=== PATIENT | female | born 1955 | race Caucasian/White ===

== ENCOUNTER 2019-01-08 09:47 | Inpatient (IN) ==
[2019-01-08] MEDS ORDERED: NS 1,000 ML IV ONE ×3 (10:44→14:31)
[2019-01-08] MEDS ORDERED: ZOFRAN IV ONE ×2 (10:44→13:27)
[2019-01-08] MEDS ORDERED: ATIVAN IV ONE (10:45)
--- NOTE | 2019-01-08 11:08 | EKG Report ---
Test Performed on : 01/08/2019 10:48:49 AM Test Reason : tachycardia Blood Pressure : / mmHG Vent. Rate : 168 BPM Atrial Rate : 168 BPM P-R Int : 000 ms QRS Dur : 082 ms QT Int : 302 ms P-R-T Axes : 000 012 091 degrees QTc Int : 504 ms Atrial fibrillation. with rapid ventricular response. ST elevation, consider inferior injury or acute infarct ACUTE [place] / STEMI Consider right ventricular involvement in acute inferior infarct Abnormal ECG When compared with ECG of 04-SEP-2015 07:32, Atrial fibrillation. has replaced Sinus rhythm. Unconfirmed Result
[2019-01-08 11:16] LABS: BASO# 0.07 X1000 (0.0-0.2); BASO% 0.3 % (0.0-0.8); EOS# 0.16 X1000 (0.0-0.7); EOS% 0.7 % (0.0-10.0); HEMATOCRIT 35.8 % (37.0-47.0); HEMOGLOBIN 11.4 g/dL (12.0-16.0); IMM GRAN# 0.09 X1000 (0.0-0.04); IMM GRAN% 0.4 % (0.0-0.5); LYMPH# 1.68 X1000 (1.2-3.4); LYMPH% 7.2 % (20.5-51.1); MCH 23.3 PG (27-31); MCHC 31.8 g/dL (33-37); MCV 73.1 FL (81-99); MONO# 0.82 X1000 (0.11-0.59); MONO% 3.5 % (1.7-9.3); NEUT# 20.52 X1000 (1.4-6.5); NEUT% 87.9 % (42.2-75.2); PLT 627 X1000 (130-400); RDW 17.3 % (11.5-14.5); WBC 23.34 X1000 (4.8-10.8)
[2019-01-08] MEDS ORDERED: STERILE WATER INJ. INJ ONE (11:29)
[2019-01-08] MEDS ORDERED: GEODON IM ONE (11:29)
[2019-01-08] MEDS ORDERED: VALIUM IV ONE (12:12)
--- NOTE | 2019-01-08 12:45 | Diag Imaging Result Doc PS360 ---
CHEST-1 VIEW - 01/08/2019 INDICATION: chest pain COMPARISON: None FINDINGS: The lungs are normally expanded and clear. Heart size and mediastinal contours are normal. No pneumothorax or pleural effusion. IMPRESSION: Negative exam. Electronically signed by Akhil Grossman 01/08/2019 12:43 PM
[2019-01-08] MEDS: ZOSYN 3.375 GM in NS 50 ML IV ONE ×2 (13:21→14:20)
[2019-01-08] MEDS ORDERED: PHENERGAN IM ONE (13:21)
[2019-01-08 14:10] LABS: ALLEN TEST YES; BE -10.9 mmoll (-3.0-3.0); BLOOD TYPE ARTERIAL; HCO3-(ACT) 16.4 mmoll (20.0-26.0); MODALITY CANNULA; PCO2(98.6) 22 mmHg (35-45); PO2(98.6) 119 mmHg (60-100); SAMPLE BLOOD; THB 10.2 g/dL (11.5-17.4); pH(98.6) 7.37 (7.35-7.45)
[2019-01-08 14:18] LABS: ESTIMATED GFR 27
[2019-01-08 14:19] LABS: AGAP 22; ALBUMIN 4.7 g/dL (3.5-5.0); ALKALINE PHOSPHATASE 173 U/L (32-104); BUN 55 mg/dL (8-22); CALCIUM 10.3 mg/dL (8.8-10.2); CHLORIDE 105 mmol/L (98-107); CK PROFILE 58 U/L (24-173); COSMO 300; CREATININE 1.9 mg/dL (0.5-0.9); GLUCOSE 170 mg/dL (70-104); GOT 22 U/L (10-30); GPT 23 U/L (10-36); LIPASE 21 U/L (13-60); POTASSIUM 4.1 mmol/L (3.5-5.1); SODIUM 141 mmol/L (136-145); TCO2 14 mmol/L (25-35); TOTAL BILIRUBIN 0.57 mg/dL (0.20-1.00); TOTAL PROTEIN 9.2 g/dL (6.3-8.3)
--- NOTE | 2019-01-08 14:21 | PROVIDER DOCUMENTATION ---
This chart was entered by Sangeeta Castillo Scribe, acting as scribe for Juan J Ko DO. HPI-Abdominal Pain/GI Problem - General Chief Complaint: Vomiting Stated Complaint: SEVERE VOMITING Time Seen by Provider: 01/08/19 10:12 Source: patient, family () Allergies/Adverse Reactions: Patient Allergies Allergy/AdvReac Type Severity Reaction Status Date / Time nalbuphine HCl * AdvReac Unknown Verified 07/25/15 17:15 [From Nubain] Home Medications: Home Medication List Medication Instructions Recorded Confirmed Last Taken Type Insulin Glargine,Hum.rec.anlog 32 unit SQ BID 07/25/15 09/04/15 09/03/15 18:00 History [Lantus Solostar] Lisinopril 20 mg PO DAILY 07/25/15 09/04/15 09/03/15 History Omeprazole [Prilosec] 20 mg PO DAILY 07/25/15 09/04/15 09/03/15 History Tizanidine HCl [Zanaflex] 4 mg PO 4XDAY 07/25/15 09/04/15 09/03/15 13:00 History Cephalexin [Keflex] 500 mg PO BID #14 cap 06/07/18 Unknown Rx - History of Present Illness-ABD Nature of Presenting Problems: 63 yowf presents to the ed with at bedside. pt sts pt has had TMTC of vomiting since last night and has been out of Zanaflex "for a few" and when pt goes in to withdrawal this is typical behavior. pt on exam is lying in a position and can speak if you ask a direct question but otherwise answers for pt. pt c/o n/v Abdominal Pain Onset Location: reports: generalized abdomen Pain Radiation: reports: no radiation Quality of Pain: reports: other (c/o nausea) Severity in ED: reports: moderate Onset/Duration: reports: last night Timing: reports: still present, getting worse Activities at Onset: reports: other (out of medication) Exposure to sick contacts?: No Modifying Factors: improves with: nothing. worse with: eating Associated Symptoms: reports: nausea, vomiting. denies: back/neck pain, chest pain, diaphoresis, fever/chills, headaches, shortness of breath Last BM: unsure Dark Stools Present?: reports: none noticed Rectal Bleeding: reports: none # of Diarrhea Episodes: 0 Rectal Pain: reports: none Emesis Description: reports: other (no description given) Bruising or Bleeding Gums?: No Similar Symptoms Previously?: Yes Recently seen or treated by another doctor?: No Review of Systems - Adult - REVIEW OF SYSTEMS - ADULT ROS:: ROS per family ( does most of answering questions) Constitutional: denies: chills, fever Eyes: reports: no symptoms reported Ears, Nose, Mouth & Throat: reports: no symptoms reported Cardiovascular: denies: chest pain, palpitations Respiratory: denies: shortness of breath, wheezing Gastrointestinal: reports: see HPI, nausea, poor appetite, vomiting. denies: abdominal pain (c/o nausea) Genitourinary: reports: no symptoms reported Musculoskeletal: denies: back pain, neck pain Integumentary: reports: no symptoms reported Neurological: denies: dizziness/vertigo, headache/migraines, seizure Psychiatric: reports: no symptoms reported Endocrine: reports: no symptoms reported Hematologic/Lymphatic: reports: no symptoms reported Allergic/Immunologic: reports: no symptoms reported All Other Systems: Reviewed and Negative Past History - Adult - PAST MEDICAL HISTORY-ADULT Review of Records: reports: Old Records Reviewed, Nursing Assessment Review, Medications Reviewed, Social history reviewed & non-contributory. Major Childhood Illnesses: reports: denies history Cardiovascular: reports: HTN Respiratory: reports: denies history Gastrointestinal: reports: cancer (colon), GERD Obstetrical/Gynecological: reports: denies history Genitourinary: reports: denies history Musculoskeletal: reports: chronic pain (sees pain clinic in [place]) Neurological: reports: denies history Psychiatric: reports: other (drug seeking behavior, drug dependence, Oxycodone/Zanaflex) Endocrine/Immune: reports: Diabetes Diabetes Type: Type 2 Other Conditions: reports: denies history - PRIOR SURGERIES/PROCEDURES Surgical/Procedure History: reports: appendectomy, cholecystectomy, hysterectomy , BTL, , bowel surgery, back/neck - PRIOR HOSPITALIZATIONS Prior Hospitalizations: reports: for other non-related - IMMUNIZATION STATUS Childhood Immunizations: See Nurse Assessment Flu Vaccine: See Nurse Assessment - FAMILY HISTORY Family History: reviewed, not pertinent - SOCIAL HISTORY Smoking: denies Substance Use: denies Living Situation: family Physical Exam-General - PHYSICAL EXAM-ADULT Initial Vital Signs Reviewed: Yes - CONSTITUTIONAL General Appearance: alert, moderate distress, anxious. negative: appears well (ill appearing) - EYES Eyes: PERRL/EOMI, pale conjunctivae - HEAD, EARS, NOSE, MOUTH & THROAT HENMT: dental decay. negative: moist mucous membranes (dry oral) - NECK Neck: full range of motion, normal inspection - RESPIRATORY Respiratory: chest non-tender, lungs clear, normal breath sounds - CARDIOVASCULAR Cardiovascular: normal peripheral pulses, regular rate, rhythm - GASTROINTESTINAL (ABDOMEN) Abdominal Exam: normal bowel sounds, soft, no organomegaly, no pulsatile mass, guarding. negative: distended, rigid, rebound - GENITOURINARY Female Genitalia/Pelvic Exam: deferred Rectal Exam: deferred Hemoccult Exam: deferred - LYMPHATIC Lymphatic: no adenopathy - MUSCULOSKELETAL Back Exam: normal inspection, other (pt is lying in a position on exam) Extremity: no pedal edema, no calf tenderness, normal capillary refill, pelvis stable - SKIN Integumentary: warm/dry, pallor - NEUROLOGIC Neurologic: grossly normal - PSYCHIATRIC Psych/Mental Status: normal thought process, oriented x 3, disheveled Progress - PLAN OF CARE/RESULTS Progress/Plan/Lab Results: Vital Signs - 8 hr 01/08/19 09:54 Temperature 97.7 F Pulse Rate 83 Respiratory Rate 20 O2 Sat by Pulse Oximetry 98 re-examined numerous time during ED course, very challenging presentation/situation patient non-cooperative with care initially, labs, blood cultures, lactate, fluids ordered due to tachycardia, vomiting broad spectrum antibiotics ordered initial labs hemolyzed i discussed with staff patient has iv access, nursing will get second line patient prolonged course in the ED, appropriate fluids, abx orders for sepsis called hospitalist with pending CT imaging in discussion, they would like CT results prior to admission in our discussion at point of conversation, 30ml/kg fluid bolus along with initial zosyn orders and vancomycin added when CT resulted, called back hospitalist in the interim, this patient needs additional iv access, has 2 small peripheral lines planned to insert CVL, I am notified we have picc team available at this facility, this would be a good option for this patient for additional access Result Diagrams: 01/08/19 10:46 01/08/19 13:48 - REASSESSMENT Reassessment #1 Time Reassessed: 10:55 (pt has noted sinus tachycardia and dr is aware) Status: unchanged (no new pain) Reassessment #2 Time Reassessed: 11:09 (pt HR did not improve with medication) Status: unchanged Reassessment Comment: at bedside Reassessment #3 Time Reassessed: 13:27 (pt still vomiting) Status: unchanged Reassessment Comment: at bedside - EKG 1 Time of EKG reading by physician:: 10:48 EKG Read and Signed by:: Juan J Ko EKG Interpretation (*Must complete 3 of following elements*): Abnormal Rate: 168 Rhythm: sinus tachycardia Strat[place]: normal QRS: normal [place] Interval: normal ST Wave: normal 2 Time of EKG reading by physician:: 10:52 EKG Read and Signed by:: Juan J Ko EKG Interpretation (*Must complete 3 of following elements*): Abnormal Rate: 169 Rhythm: sinus tachycardia with pac Strat[place]: normal QRS: normal [place] Interval: normal ST Wave: normal Prior EKG Comparison: changes noted 3 Time of EKG reading by physician:: 15:53 EKG Read and Signed by:: Juan J Ko EKG Interpretation (*Must complete 3 of following elements*): Abnormal Rate: 168 Rhythm: sinus tachycardia with pac Strat[place]: normal QRS: normal AK Interval: normal ST Wave: normal Comments: per dr ko - CT/MRI 1 CT Study: Head Impression: See EMR Report (EXAM: CT HEAD W/O CONTRAST 01/08/2019 HISTORY: altered mental status TECHNIQUE: This exam was performed using automated exposure control, adjustment of mA or kV according to patient size, and/or use of iterative reconstruction technique. COMMENT: There are no previous studies available for comparison. There is a lacune in the inferior left cerebellar hemisphere and there is apparent encephalomalacia in the upper portions of both hemispheres. There is also encephalomalacia in the occipital lobes bilaterally extending into the posterior parietal lobes. No evidence of mass effect or bleed is present. There is no evidence of mass effect. The paranasal sinuses are clear. The calvarium is intact. 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 Given the chronic findings, further evaluation with MRI may be desirable. Electronically signed by Eliu Toure 01/08/2019 2:58 PM 01/08/19 1458 Interpreting Physician: Eliu Toure MD Dictated Date/Time: 01/08/19 1455 cc: Juan J Ko DO; None,PCP) 2 CT Study: Abdomen, Pelvis Impression: See EMR Report (EXAM: CT ABDOMEN/PELVIS W/O CONTRAST 01/08/2019 HISTORY: abd pain, tachycardia TECHNIQUE: This exam was performed using automated exposure control, adjustment of mA or kV according to patient size, and/or use of iterative reconstruction technique. COMMENT: There are no previous studies available for comparison. There is an ill-defined opacity in the visualized portion of the left upper lobe seen on the first several images. This may represent bronchopneumonia. There are no abnormal fluid collections. There is a hiatal hernia. There is some mucosal thickening in the distal esophagus. There is a cyst in the left hepatic lobe measuring 2.4 cm in diameter. The liver is unremarkable considering the lack of contrast. The spleen is not enlarged. There is no evidence of nephrolithiasis. There is some slight fullness of the renal pelvis on the right. No evidence of ureterolithiasis is present. There is a Parekh catheter in the bladder. There is no evidence of bowel obstruction. There is no evidence of free pelvic fluid. There are some degenerative disc and facet changes in the lumbar spine. There is no evidence of acute bony abnormality. IMPRESSION: Atelectasis versus pneumonia left upper lobe. Possible distal esophagitis. Hepatic cyst. No evidence of ureterolithiasis or obstructive uropathy. Electronically signed by Eliu Toure 01/08/2019 3:13 PM 01/08/19 1513 Interpreting Physician: Eliu Toure MD Dictated Date/Time: 01/08/19 1508 cc: Juan J Ko DO; None,PCP) - CONSULTS/PCP/HOSPITALIST Notification #1 *Consult/PCP/Hospitalist*: hospitalist Time Discussed: 14:36 (spoke with breanne) Reason/Comments: sepsis Consult Disposition: other (phone consult and sts will accept the pt after CT are read and placed in chart) #2 Consult: hospitalist dr castro Time Discussed: 15:27 Reason/Comments: sepsis Consult Disposition: Admit Departure - Departure Date of Disposition Decision: 01/08/19 Time of Disposition Decision: 14:17 DIAGNOSIS: Tachycardia, Volume depletion, Hyperglycemia, Creatinine elevation Sepsis Qualifiers: Sepsis type: sepsis due to unspecified organism Sepsis acute organ dysfunction status: unspecified Qualified Code(s): A41.9 - Sepsis, unspecified organism Leukocytosis Qualifiers: Leukocytosis type: other Qualified Code(s): D72.828 - Other elevated white blood cell count Vomiting Qualifiers: Vomiting type: unspecified Vomiting Intractability: intractable Nausea presence: with nausea Qualified Code(s): R11.2 - Nausea with vomiting, unspecified Pneumonia Qualifiers: Pneumonia type: due to unspecified organism Laterality: unspecified laterality Lung location: unspecified part of lung Qualified Code(s): J18.9 - Pneumonia, unspecified organism Disposition: ADMITTED INPATIENT 09 Certified Medical Emergency: Emergent Condition: Fair Referrals and Follow-Ups: None,PCP [Primary Care Provider] - - Critical Care Note This patient required my direct & personal management of CC.: Yes Total Time (mins): 100 Critical Care Statement: This patient required my direct personal management to treat or rule out processes, the absence of which, could potentiallly result in sudden, clinically significant life or limb threatening deterioration. Attestation - Physician/ NAHUM Attestation Patient care was provided by Advanced Practice Provider:: No The physician spent face to face time with patient:: Yes Advanced Practice Provider documentation review:: Supervising physician onsite and consulted in the evaluation and care of this patient. The physician did have a face to face encounter with the patient. This chart was documented by the indicated scribe, (Sangeeta Castillo Scribe) and accurately reflects the services I performed and decisions made by me, Juan J Ko DO, as attested by the provider's signature.
[2019-01-08 14:24] LABS: ACETONE SERUM NEGATIVE (NEGATIVE)
[2019-01-08] MEDS ORDERED: VANCOMYCIN 1 GM/NS 1 GM/250 ML IVPB IV ONE (14:44)
--- NOTE | 2019-01-08 15:00 | Diag Imaging Result Doc PS360 ---
EXAM: CT HEAD W/O CONTRAST 01/08/2019 HISTORY: altered mental status TECHNIQUE: This exam was performed using automated exposure control, adjustment of mA or kV according to patient size, and/or use of iterative reconstruction technique. COMMENT: There are no previous studies available for comparison. There is a lacune in the inferior left cerebellar hemisphere and there is apparent encephalomalacia in the upper portions of both hemispheres. There is also encephalomalacia in the occipital lobes bilaterally extending into the posterior parietal lobes. No evidence of mass effect or bleed is present. There is no evidence of mass effect. The paranasal sinuses are clear. The calvarium is intact. 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 Given the chronic findings, further evaluation with MRI may be desirable. Electronically signed by Eliu Toure 01/08/2019 2:58 PM
[2019-01-08] MEDS ORDERED: NS 250 ML ONE (15:05)
--- NOTE | 2019-01-08 15:15 | Diag Imaging Result Doc PS360 ---
EXAM: CT ABDOMEN/PELVIS W/O CONTRAST 01/08/2019 HISTORY: abd pain, tachycardia TECHNIQUE: This exam was performed using automated exposure control, adjustment of mA or kV according to patient size, and/or use of iterative reconstruction technique. COMMENT: There are no previous studies available for comparison. There is an ill-defined opacity in the visualized portion of the left upper lobe seen on the first several images. This may represent bronchopneumonia. There are no abnormal fluid collections. There is a hiatal hernia. There is some mucosal thickening in the distal esophagus. There is a cyst in the left hepatic lobe measuring 2.4 cm in diameter. The liver is unremarkable considering the lack of contrast. The spleen is not enlarged. There is no evidence of nephrolithiasis. There is some slight fullness of the renal pelvis on the right. No evidence of ureterolithiasis is present. There is a Parekh catheter in the bladder. There is no evidence of bowel obstruction. There is no evidence of free pelvic fluid. There are some degenerative disc and facet changes in the lumbar spine. There is no evidence of acute bony abnormality. IMPRESSION: Atelectasis versus pneumonia left upper lobe. Possible distal esophagitis. Hepatic cyst. No evidence of ureterolithiasis or obstructive uropathy. Electronically signed by Eliu Toure 01/08/2019 3:13 PM
[2019-01-08 15:22] LABS: URINE SOURCE CATH
[2019-01-08 15:24] LABS: BILIRUBIN URINE NEGATIVE (NEGATIVE); BLOOD URINE NEGATIVE (NEGATIVE); COLOR YELLOW; GLUCOSE URINE NEGATIVE (NEGATIVE); KETONE URINE TRACE mg/dL (NEGATIVE); LEUKOCYTES URINE NEGATIVE (NEGATIVE); NITRITE URINE NEGATIVE (NEGATIVE); PROTEIN URINE TRACE mg/dL (NEGATIVE); SP GRAVITY URINE 1.019; TURBIDITY URINE HAZY (CLEAR); UR EPITHELIAL CELLS <10 /HPF (<10); URINE BACTERIA NEGATIVE /HPF; URINE RBC <10 /HPF (<10); URINE WBC <10 /HPF (<10); UROBILINOGEN URINE NORMAL (NORMAL)
[2019-01-08 15:32] LABS: PTT 24.1 Seconds (22.3-41.8)
[2019-01-08 15:35] LABS: INR 1.2; PROTIME 15.4 Seconds (11.0-16.0)
[2019-01-08 15:38] LABS: UR AMPHETAMINES QUAL NONE DETECTED (NONE DETECT); UR BARBITUATES QUAL NONE DETECTED (NONE DETECT); UR BENZODIAZEPIN QUAL NONE DETECTED (NONE DETECT); UR CANNABINOIDS QUAL NONE DETECTED (NONE DETECT); UR COCAINE QUAL NONE DETECTED (NONE DETECT); UR METHADONE QUAL NONE DETECTED (NONE DETECT); UR OPIATES QUAL NONE DETECTED (NONE DETECT); UR OXYCODONE QUAL NONE DETECTED (NONE DETECT); UR PCP QUAL NONE DETECTED (NONE DETECT)
[2019-01-08] MEDS ORDERED: CARDIZEM IV ONE ×2 (15:57→17:40)
[2019-01-08] MEDS ORDERED: ZANAFLEX PO ONE (16:06)
--- NOTE | 2019-01-08 16:07 | EKG Report ---
Test Performed on : 01/08/2019 3:49:45 PM Test Reason : tachycardia Blood Pressure : / mmHG Vent. Rate : 168 BPM Atrial Rate : 168 BPM P-R Int : 138 ms QRS Dur : 078 ms QT Int : 288 ms P-R-T Axes : 049 007 092 degrees QTc Int : 481 ms Sinus tachycardia. with premature atrial complexes. ST elevation, consider inferior injury or acute infarct ACUTE [place] / STEMI Consider right ventricular involvement in acute inferior infarct Abnormal ECG When compared with ECG of 08-JAN-2019 10:48, (Unconfirmed) Sinus rhythm. has replaced Atrial fibrillation. Unconfirmed Result
[2019-01-08] MEDS ORDERED: DUONEB (A & A) INH PRN (16:15)
[2019-01-08] MEDS ORDERED: NS 1,000 ML IV SCH (16:15)
[2019-01-08] MEDS ORDERED: ROCEPHIN 1 GM in NS 50 ML IV SCH (16:15)
[2019-01-08] MEDS ORDERED: ZOFRAN IV PRN (16:19)
[2019-01-08] MEDS ORDERED: SODIUM CHLORIDE 0.9% INJ PRN (16:20)
[2019-01-08] MEDS ORDERED: VANCOMYCIN IV PER PHARMACY MISC SCH (16:30)
--- NOTE | 2019-01-08 16:54 | HISTORY AND PHYSICAL ---
HISTORY OF PRESENT ILLNESS: This is a 63-year-old. states that she ran out of her Zanaflex. She takes a little over 4 of those a day and in times past when she is withdrawal from Zanaflex she gets very confused and agitated and that is what he noticed started happening yesterday evening. He brought to the emergency room this morning. She was complaining of nausea and very agitated and I think they gave her some Zofran and she required four-point restraint. He denies any fever or chills or complaints of chest pain or tachy palpitations. PAST MEDICAL HISTORY: 1. History of hypertension. 2. Gastroesophageal reflux. 3. Colon cancer in 2000 with colon resection. No sign of recurrence. PAST SURGICAL HISTORY: 1. Three C-sections. 2. Hysterectomy. 3. Three lumbar surgeries. 4. Cholecystectomy. 5. Colectomy secondary to colon cancer. ALLERGIES: Nubain. He gave a couple others. I think morphine is 1 of them. FAMILY HISTORY: He does not report any history of coronary or cardiac, renal, or pulmonary issues that he is aware of. SOCIAL HISTORY: Negative for tobacco. Negative for ethanol. REVIEW OF SYSTEMS: According to the , no weight gain or loss. No fever chills.HEENT: Unremarkable. He is not aware of any change in visual or hearing acuity. No recent fall or neck pain. No adenopathy. Respiratory: No increased work of breathing or dyspnea. Cardiovascular: No chest pain or tachy palpitation GI/: No gross hematuria or dysuria. Musculoskeletal/Neurologic: No focal complaints, just general confusion and agitation. LAB: ABG was 7.37, pCO2 is 22, PO2 is 119, O2 saturation is 96%; this was on 2 L nasal cannula. Sodium 141, potassium 4.1, chloride 105, bicarb 14, BUN 55, creatinine 1.9. I am not sure what her baseline creatinine is. Calcium is 10.3, AST 22, ALT was 23, alkaline phosphatase 173. CK was 59. Lactate level is 4.8. Note that the patient appears to have metabolic acidosis with respiratory compensation. Bicarb was 22. Chest x-ray in the emergency room, negative exam. Lungs are normally expanded and clear. However, CT scan of the abdomen and pelvis revealed atelectasis versus pneumonia in the left upper lobe, possible distal esophagitis, hepatic cyst. No evidence of ureteral lithiasis or obstructive uropathy. 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 ASSESSMENT AND PLAN: 1. Metabolic encephalopathy. Suspect it is from her muscle relaxant withdrawal, so we will put her back on her muscle relaxer. We are going to put her in the unit. She is requiring four- point restraint at this point. I guess what we can use to help will be Haldol. She can have 4 mg of Haldol IV q.6 hours p.r.n. We will give her some supplementary O2. We will check her T4, TSH, B12, folate, and we will make sure we get a urine drug screen. Actually, she has had a drug screen and it is negative for opiates, oxycodone, methadone, barbiturates, phencyclidine, amphetamines, benzodiazepines, urine cocaine, and cannabinoids. Acetone level was negative as well. 2. She has some encephalomalacia appreciated and we may need to define that better with an MRI. I cannot determine whether she has any new neurologic deficits. Her does not seem to think she has. 3. Questionable pneumonia, questionable aspiration. So we will cover right now with antibiotics. Plan on giving her Zosyn 3.375 g IV q.6 hours and we will give her 1 g of vancomycin, have it dosed per pharmacy right now. 4. We are going to need to watch her renal function. We will give her normal saline and run it at 85 mL an hour at the present time. I do not think she is having sepsis, but her lactate level was high. So, we will run normal saline at 85 mL an hour. She has no history of congestive heart failure, so she ought to be able to handle the volume okay. 5. Distant history of colon cancer, status post colectomy. 6. She has had some back surgeries in the past and has a lot of muscle spasm. 7. History of gastroesophageal reflux disease. 8. History of hypertension. REVIEW OF MEDICATIONS: She was taking some Keflex, will stop that. She is on Lantus 32 units subcutaneously b.i.d. I think we probably ought to half that dose to 18 units b.i.d. until we know that she is eating and awake and alert. We will give her the lisinopril 20 mg a day, Prilosec 20 mg daily, and we will put her back on her Zanaflex 4 mg q.6 hours. cc: Hiram Hammer MD
[2019-01-08] MEDS: PHENERGAN IV PRN ×2 (17:02→21:09)
[2019-01-08] MEDS: NS 1,000 ML IV SCH (18:00)
[2019-01-08] MEDS: CARDIZEM 125 MG in NS 100 ML IV SCH (18:07)
--- NOTE | 2019-01-08 18:14 | Diag Imaging Result Doc PS360 ---
EXAM: CHEST-PORTABLE 01/08/2019 HISTORY: NG PLACEMENT TECHNIQUE: AP upright at 1807 COMMENT: There is an NG tube with its tip in the stomach. The heart size is enlarged. There has been no significant change since 1239. IMPRESSION: NG tube in the stomach. Electronically signed by Eliu Toure 01/08/2019 6:12 PM
[2019-01-08] MEDS: HALDOL IV PRN (18:22)
[2019-01-08] MEDS ORDERED: MORPHINE IV ONE (20:23)
[2019-01-08] MEDS ORDERED: ZANAFLEX PO SCH (21:00)
[2019-01-08] MEDS: ATIVAN IV PRN (21:07)
[2019-01-08] MEDS: PROTONIX IV SCH (21:07)
[2019-01-08] MEDS: SODIUM CHLORIDE 0.9% INJ SCH (21:07)
[2019-01-08] MEDS: LANTUS INSULIN SUBQ SCH (21:09)
[2019-01-08] MEDS: HUMULIN R SUBQ SCH (21:10)
[2019-01-08] MEDS: ZANAFLEX PO SCH (21:26)
[2019-01-08] MEDS ORDERED: NS 500 ML IV ONE (23:00)
[2019-01-09] MEDS: ATIVAN IV PRN ×3 (00:12→21:15)
[2019-01-09] MEDS ORDERED: LOPRESSOR IV ONE (00:56)
[2019-01-09] MEDS: CARDIZEM 125 MG in NS 100 ML IV SCH ×2 (01:19→11:11)
[2019-01-09] MEDS: ZANAFLEX PO SCH ×4 (03:25→21:15)
[2019-01-09] MEDS: HALDOL IV PRN ×2 (06:19→17:28)
[2019-01-09] MEDS: NS 1,000 ML IV SCH ×2 (06:19→17:29)
--- NOTE | 2019-01-09 06:35 | Diag Imaging Result Doc PS360 ---
CHEST-PORTABLE - 01/09/2019 INDICATION: Pneumonia COMPARISON: 01/08/2019 FINDINGS: The left PICC line has been advanced and the tip is now at the cavoatrial junction. Nasogastric tube is in the stomach. No infiltrates in the lungs. Heart size is normal. IMPRESSION: No acute disease. Electronically signed by Akhil Grossman 01/09/2019 6:32 AM
[2019-01-09] MEDS: HUMULIN R SUBQ SCH ×4 (07:00→21:18)
--- NOTE | 2019-01-09 07:09 | EKG Report ---
Test Performed on : 01/09/2019 06:56:45 AM Test Reason : eval qtc Blood Pressure : / mmHG Vent. Rate : 120 BPM Atrial Rate : 120 BPM P-R Int : 154 ms QRS Dur : 080 ms QT Int : 330 ms P-R-T Axes : 047 012 187 degrees QTc Int : 466 ms Sinus tachycardia. with occasional premature ventricular complexes. Left ventricular hypertrophy with repolarization abnormality Abnormal ECG When compared with ECG of 08-JAN-2019 15:49, (Unconfirmed) premature ventricular complexes. are now present premature atrial complexes. are no longer present T wave inversion now evident in Inferior leads T wave inversion more evident in Lateral leads Confirmed by Danielle Mi MD ([id number]) on 01/10/2019 12:59:16 PM
[2019-01-09 07:10] LABS: HEMOGLOBIN A1C 7.4 % (4.8-6.0)
[2019-01-09 07:14] LABS: BASO# 0.05 X1000 (0.0-0.2); BASO% 0.3 % (0.0-0.8); HEMATOCRIT 29.9 % (37.0-47.0); HEMOGLOBIN 9.3 g/dL (12.0-16.0); IMM GRAN# 0.06 X1000 (0.0-0.04); IMM GRAN% 0.3 % (0.0-0.5); LYMPH# 1.71 X1000 (1.2-3.4); LYMPH% 9.6 % (20.5-51.1); MCH 23.1 PG (27-31); MCHC 31.1 g/dL (33-37); MCV 74.2 FL (81-99); MONO% 7.3 % (1.7-9.3); MPV 11.5 FL (7.4-10.4); NEUT# 14.69 X1000 (1.4-6.5); NEUT% 82.5 % (42.2-75.2); PLT 461 X1000 (130-400); RBC 4.03 XMIL (4.2-5.4); RDW 17.6 % (11.5-14.5); WBC 17.81 X1000 (4.8-10.8)
[2019-01-09 07:25] LABS: ALB/GLOB RATIO 1.1; ALBUMIN 3.9 g/dL (3.5-5.0); CALCIUM 9.1 mg/dL (8.8-10.2); CREATININE 1.3 mg/dL (0.5-0.9); POTASSIUM 3.5 mmol/L (3.5-5.1); TOTAL BILIRUBIN 0.62 mg/dL (0.20-1.00); TOTAL PROTEIN 7.4 g/dL (6.3-8.3)
[2019-01-09 07:43] LABS: FREE T4 1.56 ng/dL (0.93-1.70); TSH 1.23 uIUmL (0.27-4.20)
[2019-01-09] MEDS: LANTUS INSULIN SUBQ SCH ×2 (09:27→21:19)
[2019-01-09] MEDS: PROTONIX IV SCH ×2 (09:27→21:15)
--- NOTE | 2019-01-09 10:34 | PROGRESS NOTE ---
DATE: 01/09/2019 SUBJECTIVE: Ms. Juarez still has a good deal of confusion. She required a four-point restraint. She is oriented to person. She knows she is in the hospital, and she could not get the year or the month correct, but she was pretty close. She realized she was wrong when she was corrected. OBJECTIVE: Temperature 98.4 degrees, pulse 132, respirations 28 and blood pressure 155/96. Pupils are equal and round. Lungs are clear in all lung francois. Cardiovascular exam with regular rhythm and rate without murmur or S3. Abdomen is soft. Skin is warm and dry. LABORATORY: [place] [address] [place] [address]. Sodium 151, potassium 3.5, chloride 117, BUN 28, and creatinine 1.3. It has come down from 1.9 to 1.3. Lactate level down to 1.3. Urine drug screen was really negative. Her chest x-ray from this morning showed no acute disease. Left PICC line has been advanced. The tip is now at the cavoatrial junction. Nasogastric tube is in the stomach. No infiltrates in the lungs. CT of the head without contrast, extensive encephalomalacia of the posterior circulation, which may be due to previous infarcts. May need to consider an MRI. Abdominal and pelvic CT, atelectasis versus pneumonia left upper lobe, possible distal esophagitis, hepatic cyst. No evidence of ureteral lithiasis or obstructive uropathy. ASSESSMENT AND PLAN: 1. Metabolic encephalopathy. She had run out of her Zanaflex, and we have her back on that. She has some nausea as well. There is some hypernatremia. We are treating her for pneumonia. 2. Pneumonia with bacteremia suspected. Continue current antibiotics. 3. Sinus tachycardia I think it would be nice to get an MRI of her head at some point. I am going to ask neurology to evaluate. We will check thyroid, B12 and folate, which I think were done this morning. Thyroid is unremarkable. B12 of 317, folate was 22. She did have some acute kidney injury. Her creatinine was 1.9, and it has come down. Liver enzymes unremarkable. I will check an ammonia level as well though. cc: Hiram Hammer MD
--- NOTE | 2019-01-09 13:10 | CONSULTATION ---
DATE OF CONSULTATION: 01/09/2019 HISTORY OF PRESENT ILLNESS: Ms. Juarez is 63 years old and there is reported confusion. I have reviewed the admission history. is not present for firsthand report right now. She apparently abruptly stopped tizanidine and developed confusion. There may be a report that she has had a similar situation in the past. She told me that she had not made any medication changes except running out of tizanidine for about 1 day. Chart shows her tizanidine dose had been 4 mg q.i.d. chronically. Her urine drug screen was all negative. Her home medicine list does not include any other habituating products. I did find entry on the [facility] PDMP with a differently spelled 1st name, identical date, same last name, very similar address. This entry showed lorazepam prescriptions filled in the last few months, hydrocodone and oxycodone prescriptions filled earlier, clonazepam prescription about a year and a half ago. Ms. Juarez denies ethanol use and illicit drug use. Her imaging this admission includes noncontrast CT showing diffuse posterior encephalomalacia involving the occipital lobes and the cerebellar hemispheres bilaterally. This appears very old, not recent. She reports a head injury in an accident with limb injuries at an uncertain point in the past, possibly a few years ago, possibly only several months ago. Brain MRI is planned, but was not done earlier because of her restlessness. She reports no history of stroke, no more serious head injury, no head injury with neurologic deficit. She reports trouble with vision only since several months ago. PAST MEDICAL HISTORY: Past history is remarkable for hypertension, GERD, colon cancer managed in 2000, chronic back pain and history of lumbar surgery. LABORATORY DATA: Lab showed normal B12, normal thyroid, blood sugars 120s-190s, WBC initially 23,000 down to 17,000. Sodium initially 141 up to 151. BUN initially 55, down to 28. VITAL SIGNS: Vital sign record shows temperature 100.8 degrees about 20 hours ago, otherwise afebrile. Heart rate has ranged 110s to 130s. Recent systolic blood pressures have been 140s-170s. PHYSICAL EXAMINATION: On exam, Ms. Juarez is supine, awake, alert, mostly attentive. She answered questions appropriately but often incorrectly. She was incorrect with all answers regarding orientation in time. She did identify this as a hospital in [place]. She named the President correctly. She discussed recent news generally without specific details provided. She confabulated easily and consistently. Speech is minimally dysarthric but easily understood. Language function is intact on bedside testing. Head and neck are unremarkable. Visual field is full on the right and very poor on the left tested monocularly and binocularly. Extraocular movements are full. Pupils react to light. Facial motility is symmetric. Tongue is midline. Limb tone is symmetric. She performed rapid alternating movements very slowly and inconsistently with the hands, but symmetrically with the left and right. Plantar response is silent bilaterally. There was brisk withdrawal with minimal noxious stimulation of the limbs. She reports equal pinprick appreciation over the limbs, somewhat difficult to mat machine tender with certainty because of her fluctuating attention. Proprioception is good at the great toe MTP joint bilaterally. I did not test her gait. IMPRESSION: 1. Left hemianopia, confusion, possible delirium, confabulation. I do not see clinical evidence of increased intracranial pressure. 2. CT findings are noted. I do not know whether this is due to very remote or more recent incident, but it does not appear to be acute or subacute. She would have risk for seizure based on these CT findings, but history does not sound like seizure. 3. There is reported recent abrupt cessation of moderately high dose tizanidine which generally would be associated with elevated blood pressure, restlessness, agitation, but not usually confusion. I wonder if she might have a history of benzodiazepine and/or opiate use recently, but I cannot confirm that with the records available. Tizanidine intoxication is another consideration and effect might be increased by poor renal function. If can confirm or exclude other drug use, that would be helpful information. 4. Earlier azotemia is noted and that could contribute to transient mental changes. At this point, she seems to be stable and improved. I do not have any urgent suggestion from Neurology standpoint. If we can eventually get MRI, that will be helpful. Next step, from my standpoint, would be to consider EEG with question of subclinical seizure to account for persistent fluctuating attention and question of confusion. Thanks for asking Neurology to see Ms. Juarez. cc: MD ROSALIND Edmondson III
[2019-01-09] MEDS ORDERED: ZANAFLEX PO ONE (17:00)
[2019-01-09] MEDS ORDERED: CARDIZEM 125 MG/D5W 125 MG/125 ML IVPB IV SCH (19:00)
[2019-01-09] MEDS ORDERED: VANCOMYCIN 1,500 MG in NS 250 ML IV SCH (20:00)
[2019-01-09] MEDS: SODIUM CHLORIDE 0.9% INJ SCH (21:15)
[2019-01-10] MEDS: NS 1,000 ML IV SCH (02:30)
[2019-01-10] MEDS: ZANAFLEX PO SCH ×3 (03:20→14:02)
[2019-01-10] MEDS ORDERED: LEVOPHED 8 MG in D5 1/2 NS 250 ML IV SCH (06:45)
[2019-01-10] MEDS ORDERED: NS 1,000 ML IV ONE (06:50)
--- NOTE | 2019-01-10 07:06 | Diag Imaging Result Doc PS360 ---
EXAM: CHEST-PORTABLE 01/10/2019 HISTORY: Crackles Bilateral Lung Bases TECHNIQUE: AP portable at 0648 COMMENT: The inspiration is less optimal than on 01/09/2019. Considering this there has been no appreciable change since the previous study. IMPRESSION: Poor inspiration. Electronically signed by Eliu Toure 01/10/2019 7:04 AM
--- NOTE | 2019-01-10 07:06 | PROGRESS NOTE ---
DATE: 01/10/2019 Blood pressure is running in the 50s and 60s systolic and having started her on some Levophed. She was given some Ativan. OBJECTIVE: Temperature 98.6 degrees, pulse 105, respirations 24, blood pressure 157/101 previously. Now we are having blood pressures in the 50s and 60s. Apparently, she was requesting Ativan and had a little bit of improvement with her it seemed yesterday with putting her back on her muscle relaxer, so we are going to stop her Ativan. We will stop her Zanaflex as well. Increase her fluid. We were hoping to get an MRI of her head. White count was 17,810 yesterday, hematocrit 29, hemoglobin 9.3, blood sugar 155, 149, 137. ASSESSMENT AND PLAN: She has metabolic encephalopathy. Not sure the reason. Her was thinking it was she had to stop the Zanaflex so we will stop the Zanaflex, see if we can increase her fluids. We need to stop the Ativan. We will check cardiac enzymes as well and see how we do. cc: Hiram Hammer MD
[2019-01-10] MEDS: HUMULIN R SUBQ SCH ×4 (07:28→20:14)
[2019-01-10 07:56] LABS: ALB/GLOB RATIO 1.2; ALBUMIN 3.1 g/dL (3.5-5.0); CALCIUM 8.4 mg/dL (8.8-10.2); MAGNESIUM 1.4 mg/dL (1.5-2.7); POTASSIUM 3.4 mmol/L (3.5-5.1); TOTAL BILIRUBIN 0.35 mg/dL (0.20-1.00); TOTAL PROTEIN 5.6 g/dL (6.3-8.3)
[2019-01-10 08:17] LABS: BASO# 0.06 X1000 (0.0-0.2); BASO% 0.4 % (0.0-0.8); EOS% 2.7 % (0.0-10.0); HEMATOCRIT 27.4 % (37.0-47.0); HEMOGLOBIN 8.2 g/dL (12.0-16.0); IMM GRAN# 0.04 X1000 (0.0-0.04); IMM GRAN% 0.3 % (0.0-0.5); LYMPH# 1.68 X1000 (1.2-3.4); LYMPH% 11.2 % (20.5-51.1); MCH 23.3 PG (27-31); MCHC 29.9 g/dL (33-37); MCV 77.8 FL (81-99); MONO# 0.66 X1000 (0.11-0.59); MONO% 4.4 % (1.7-9.3); MPV 11.1 FL (7.4-10.4); NEUT# 12.18 X1000 (1.4-6.5); PLT 396 X1000 (130-400); RBC 3.52 XMIL (4.2-5.4); RDW 17.8 % (11.5-14.5); WBC 15.02 X1000 (4.8-10.8)
--- NOTE | 2019-01-10 08:34 | EKG Report ---
Test Performed on : 01/10/2019 08:28:19 AM Test Reason : hypotension/shock Blood Pressure : / mmHG Vent. Rate : 107 BPM Atrial Rate : 107 BPM P-R Int : 146 ms QRS Dur : 086 ms QT Int : 376 ms P-R-T Axes : 016 011 096 degrees QTc Int : 501 ms Sinus tachycardia. Nonspecific ST and T wave abnormality Abnormal ECG When compared with ECG of 09-JAN-2019 06:56, (Unconfirmed) premature ventricular complexes. are no longer present T wave inversion no longer evident in Inferior leads T wave inversion no longer evident in Lateral leads Confirmed by Danielle Mi MD ([id number]) on 01/10/2019 1:00:51 PM
[2019-01-10] MEDS: PROTONIX IV SCH ×2 (08:46→20:15)
[2019-01-10] MEDS: SODIUM CHLORIDE 0.9% INJ SCH (08:46)
[2019-01-10] MEDS ORDERED: VANCOMYCIN 1,200 MG in NS 250 ML IV SCH (09:00)
[2019-01-10] MEDS: LANTUS INSULIN SUBQ SCH ×2 (09:30→20:14)
[2019-01-10] MEDS ORDERED: MAGNESIUM SULFATE 4 GM/S.W.I. 4 GM/100 ML IVPB IV ONE (09:50)
--- NOTE | 2019-01-10 10:37 | CARDIOLOGY CONSULTATION ---
DATE: 01/10/2019 REQUESTING PHYSICIAN: Dr. Hammer of the hospitalist service. REASON FOR CONSULTATION: Atrial fibrillation with rapid response. HISTORY: Mrs. Juarez presented for admission on January 08, brought by the because she was having episodes of vomiting. The patient was really not cooperative with examination. Anyway, she was admitted to the hospital for further evaluation. Initial head CT shows extensive encephalomalacia in the posterior circulation, which may be due to previous infarcts. Both occipital lobes bilaterally extending into the posterior parietal lobes showed encephalomalacia. At any rate, the patient was placed in the hospital for admission, and chest x- ray showed no acute abnormalities. Initial electrocardiogram shows sinus tachycardia, rapid rate of 168. Subsequently she has developed yesterday atrial fibrillation with rapid response. The reason for the consultation is because of the atrial fibrillation. The patient apparently has no prior history of heart disease. Her is not available is at this time, so I am reviewing the records. The patient has converted from atrial fibrillation into sinus rhythm after she was given Cardizem and norepinephrine. PAST HISTORY: Positive for previous admission to the hospital in 2008 because of chest pain. At that time, they did a stress test that showed no abnormalities. She claimed that her doctor was Dr. Lopez. Her history was positive also for acid reflux. SURGICAL HISTORY: She has had colon cancer with a colectomy, cholecystectomy, 3 lumbar spine surgeries, hysterectomy and 3 C-sections, FAMILY HISTORY: Noncontributory. However, on further questioning, there were several members who had heart disease. SOCIAL HISTORY: She is not a smoker. She lives with . HOME MEDICATIONS: Included insulin, lisinopril, and tizanidine. ADDITIONAL HISTORY: Includes diabetes mellitus type 2. REVIEW OF SYSTEMS: Not obtainable. The patient is really not cooperative at this time. PHYSICAL EXAMINATION: Vital Signs: Blood pressure is 145/65, pulse 102, respirations 19, temperature 97.3 degrees. General: The patient mumbles unintelligibly when questioned. Her pupils are pinpoint. She does not follow any commands. HEENT: No obvious abnormalities. Chest: Diminished breath sounds at the bases. Heart: Sounds are slightly tachycardic. Abdomen: Soft, nontender. Extremities: Showed palpable pulses. No edema. Neurological: I cannot perform a good neurological exam on her because of her lack of cooperation. Dr. Zarate has performed a very comprehensive exam. Please refer to his consultation from January 09. DIAGNOSTIC STUDIES: White cell count 15,000, hemoglobin 8.2, hematocrit 27.4. Sodium 147, potassium 3.4, BUN 12, creatinine 1.0, albumin 3.1. Magnesium 1.4. An echocardiogram has been done today, and I will review it. An EKG was done this morning at 8:28 in the morning and shows sinus tachycardia at a rate of 107 beats per minute and nonspecific ST-T noted in the limb leads I and aVL. IMPRESSION: 1. Paroxysmal atrial fibrillation in the midst of an acute illness. The reason for the acute illness is unclear. There is some debate about whether this has to do with a drug-related withdrawal or drug-related toxicity. Infection has not been entirely ruled out. She is behaving as in a case of metabolic encephalopathy with organic brain syndrome, acute. 2. Diabetes mellitus, type 2. 3. History of hypertension. 4. Seemingly a history of extensive stroke of the posterior circulation based on review of the CT scan of the head. 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 5. On further review of her labs, it appears that she was acutely dehydrated at the time of presentation. This has resolved. RECOMMENDATION: At this time, we will try to optimize her metabolic status, try to get her sodium, potassium, magnesium in normal range. I will look for the family to gather more background information. We will follow her along. Thank you for asking us to participate in this patient's evaluation. cc: Cruz Polo MD MTDD
[2019-01-10] MEDS: D5 1/2 NS + KCL 20 MEQ 1,000 ML IV SCH ×2 (10:43→23:18)
[2019-01-10 10:46] LABS: IRON SATURATION 14 %; TIBC 446 ug/dL; TOTAL IRON 64 ug/dL (49-151); UNBOUND IRON 382 ug/dL (112-346)
--- NOTE | 2019-01-10 12:08 | PROGRESS NOTE ---
DATE: 01/10/2019 SUBJECTIVE: Ms. Juarez is much brighter, more alert, and more consistently attentive today. She guessed incorrectly the day of the week and the name of the hospital. She did recognize that she is in the hospital. She reported that she is in [place]. Speech is more easily understood today than yesterday. No focal deficit on brief bedside testing. Neck is supple. IMPRESSION: Global encephalopathy, some improvement in the last 24 hours. The etiology is not certain but seems likely at least partly due to medication effects. I do not have any new thoughts or new suggestions from neurology standpoint today. Thanks for asking us to see Ms. Juarez. cc: MD ROSALIND Edmondson III
[2019-01-10] MEDS ORDERED: VANCOMYCIN 1 GM/NS 1 GM/250 ML IVPB IV SCH (16:00)
--- NOTE | 2019-01-10 16:48 | PROGRESS NOTE ---
DATE: 01/10/2019 PROGRESS NOTE ADDENDUM: Is noted that blood pressure stayed pretty good. We gave her another Zanaflex and blood pressure dropped down to the 80s. reports that he has noticed when she takes Zanaflex that she will oftentimes have to go to bed. I am not sure I have a good explanation for this. Thinking was maybe her symptoms were from withdrawal from Zanaflex. Cardiology has evaluated. She has paroxysmal atrial fibrillation in the midst of acute illness. The reason for the acute illness is unclear, some debate on whether she has to do with the drug related withdrawal of her Zanaflex but when she seemed to improve we put her back on her Zanaflex but now it seems her blood pressure drops. She does have some encephalomalacia seen on CT scan. We like to get an MRI and evaluate that further, but this may make her more sensitive to the medication. MEDICAL HISTORY: 1. Diabetes mellitus type 2. 2. History of hypertension. 3. Extensive stroke of the posterior circulation based on CT, the patient is likely have some cortical vision loss and appeared she was volume depleted when she came. LABORATORY DATA: This morning, white count is down to 15,020, hematocrit 27, platelet count is 396,000. Chemistries this morning: Sodium 147, potassium 3.4, chloride 116, BUN 12, creatinine 1[address]0. Dr[address] Zarate has been following. She seemed more alert, attentive today, but then had some trouble with dropping her blood pressure. She did not appreciate any focal deficit at the bedside testing global encephalopathy. [place] like there has been some improvement. cc: Hiram Hammer MD
--- NOTE | 2019-01-10 16:59 | ECHO REPORT ---
ORDER DATE: 01/10/2019 MEASUREMENTS: Septal thickness 1.4 cm, left ventricular internal diameter in diastole 5.0 cm, posterior wall thickness 0.9 cm, left ventricular internal diameter in systole 3.3 cm, aortic root 3.0 cm, left atrium 4.1 cm. SUMMARY: 1. Fair quality study. 2. Aortic valve is trileaflet and opens normally on 2-dimensional images. Mitral and tricuspid valves are without evidence of structural abnormality. Pulmonic valve is not well demonstrated. There is trace tricuspid regurgitation. The aortic root is normal in size. 3. Normal left ventricular chamber size with borderline concentric left ventricular hypertrophy is demonstrated. Estimated left ventricular ejection fraction appears to be at least 65%. No regional wall motion abnormalities are evident. There is a channel-like defect suggested in the midportion of the ventricular septum, suggesting a small muscular VSD, although Doppler interrogation was not focused on this defect. Left atrium is mildly enlarged. Right atrium and right ventricle are normal in size with grossly preserved right ventricular systolic function. 4. No pericardial effusion. 5. Appearance of inferior vena cava suggests normal central venous pressure. 6. Incidental note is made of what appears to be a simple hepatic cyst measuring 1.8 x 2.4 cm. CONCLUSIONS: 1. No significant valvular abnormality. 2. Borderline concentric left ventricular hypertrophy with estimated left ventricular ejection fraction of at least 65%. 3. Possible small muscular ventricular septal defect. 4. Incidental finding of hepatic cyst. cc: MD Cruz Lacy MD MTD
[2019-01-11] MEDS ORDERED: LABETALOL IV ONE (02:13)
[2019-01-11] MEDS: HUMULIN R SUBQ SCH ×4 (07:43→20:17)
[2019-01-11] MEDS: PROTONIX IV SCH ×2 (08:01→20:17)
[2019-01-11] MEDS: CARDIZEM PO SCH ×3 (08:01→20:16)
--- NOTE | 2019-01-11 08:21 | CARDIOLOGY PROGRESS NOTE ---
DATE: 01/11/2019 CHIEF COMPLAINT: Irregular heartbeat, hypertension. SUBJECTIVE: Ms. Juarez is fully awake today. She is conversant. She makes sense. Her major order right now is that she wants to have her Zanaflex back because she is shaky and tremulous. She says that she aches all over. OBJECTIVE: VITAL SIGNS: Pulse 91, blood pressure has been elevated at 163/101, even 200/103 at some point. Her temperature is 99.2 degrees, respirations 16. GENERAL: She is awake, follows commands. HEENT: Unremarkable. CHEST: Sounds clear to percussion and auscultation. HEART: Sounds are regular, rhythmic. Tachycardic. ABDOMEN: Nontender. EXTREMITIES: Show no edema. NEUROLOGICAL: She seems to follow commands. I do not see any obvious focal deficits. IMPRESSION: 1. Patient who presented with encephalopathy, confusion, possible drug toxicity versus drug withdrawal. 2. Paroxysmal atrial fibrillation. 3. Diabetes mellitus type 2. 4. History of hypertension. 5. Evidence of stroke in the posterior circulation. RECOMMENDATIONS: At this time, I would put her on Cardizem 60 mg every 6 hours to control her heart rate. We really need to monitor her electrolytes on a daily basis because yesterday, her electrolytes were out of range. This really falls within the primary services' hands to keep an eye on that. We will suggest to find why she is so profoundly anemic. That would be a deterrent to initiate anticoagulation for prevention of stroke. The patient states that she lives in [place] and her primary doctor is [facility]. They came to this hospital because [facility] was full. I think a good followup needs to be established for continuity of care when this patient goes home. At any rate, cardiac saavedra, I really do not see any major issues. We will see her as needed. Please call us back if you need us to assist in any specific cardiac issue. cc: Cruz Polo MD MTDSimon
[2019-01-11] MEDS: LANTUS INSULIN SUBQ SCH ×2 (08:43→20:17)
--- NOTE | 2019-01-11 10:13 | PROGRESS NOTE ---
DATE: 01/11/2019 SUBJECTIVE: Ms. Juarez is awake and alert. She is asking for her Zanaflex back. I explained that the last several times we gave her her Zanaflex her blood pressure really dipped down to the 70s and 80s systolic. I went through other muscle relaxers. The Flexeril she could not tolerate, made her stomach upset, and Robaxin she could not tolerate as well. OBJECTIVE: She remains afebrile. Temperature 98.2 degrees, pulse 112, respirations 20, and blood pressure 134/92. Pupils are equal and round. Lungs are clear in all lung francois. Cardiovascular regular rhythm and rate without murmur or S3. Abdomen is soft. Skin is warm and dry. Urine output is 8500 mL. ASSESSMENT AND PLAN: 1. The patient presented with encephalopathy and lethargy. We have had trouble with blood pressure dropping down, not sure whether this was toxicity from her medications. The only real medicine she is taking is Zanaflex. The report we got is that she ran out of the Zanaflex, and was very confused. We tried to give her the Zanaflex back. It seemed that her blood pressure would dip down, and very sensitive to it. 2. Paroxysmal atrial fibrillation with rapid rate. This is controlled. 3. Diabetes mellitus type 2. Blood sugars under control. 4. History of hypertension, but we have had trouble with hypotension while she is here. 5. History of stroke in the posterior circulation. She is going to be on p.o. Cardizem to help control rate. I am very hesitant to try the Zanaflex back at this point even though she is really requesting it. She has had multiple back surgeries, and she does have a profound anemia and seems to be microcytic. We will check stools for blood, and I think it would be worthwhile to do some iron studies and check B12 and folate again. Recheck her thyroid. cc: Hiram Hammer MD
[2019-01-11] MEDS: ATIVAN PO PRN ×2 (10:15→18:38)
[2019-01-11 10:23] LABS: AGAP 11; BUN 5 mg/dL (8-22); CALCIUM 8.9 mg/dL (8.8-10.2); CHLORIDE 108 mmol/L (98-107); COSMO 281; CREATININE 0.7 mg/dL (0.5-0.9); ESTIMATED GFR > 60; GLUCOSE 152 mg/dL (70-104); MAGNESIUM 1.6 mg/dL (1.5-2.7); POTASSIUM 3.2 mmol/L (3.5-5.1); SODIUM 141 mmol/L (136-145); TCO2 22 mmol/L (25-35)
[2019-01-11] MEDS ORDERED: CATAPRES PO PRN (11:48)
[2019-01-11] MEDS: CATAPRES PO PRN (12:07)
--- NOTE | 2019-01-11 12:12 | PROGRESS NOTE ---
DATE: 01/11/2019 Ms. Juarez continues to be improved. This morning, she is awake, alert, bright, more attentive. Speech is free and easy. Language function is intact. is present at the bedside today. History from the patient and is that she took prescribed lorazepam a few months ago, but has not had a dose of that or of other benzodiazepine in at least a month. She had clonazepam a few years ago around the time that a family member . She had pain medicine which PDMP indicates was hydrocodone and oxycodone a few months ago. She is certain she had not had a dose of that within at least a month. She is certain that the only medicine she had recently discontinued was Zanaflex. We discussed potential blood pressure affects with tizanidine. I told her she might need to manage with a different muscle relaxer or without a muscle relaxer. I will defer that decision to her prescribing doctor. She told me that the Zanaflex prescription was from a doctor in [place], but not from her primary clinic. She and agree that she has had some forgetfulness. believes that has been going on for at least a year, gradually more prominent. We discussed possibility that baseline cognitive impairment would predispose her to a greater degree of encephalopathy with any toxic or metabolic disturbance. Regarding the imaging finding of old posterior encephalomalacia, I do not have a good explanation. confirms patient's report that she had head injury when she fell in April, 8 months ago, and struck her head, but there was not clear sustained altered consciousness and there was no apparent injury or neurologic deficit after that. There is not history of any other injury to her head. She has never had a diagnosed stroke. She has never had sudden onset of neurologic deficit. She reports being a twin and she reports being told by her mother that she and her twin had a difficult . In that case, I wonder if she might have a static -related anoxic brain event. She reports she finished high school and did not have trouble learning. I do not have any urgent suggestion. She seems to be stable and improving. I will be glad to see her again, if needed. Thanks for asking Neurology to see Ms. Juarez. cc: MD ROSALIND Edmondson III
[2019-01-11] MEDS: D5 1/2 NS + KCL 20 MEQ 1,000 ML IV SCH (13:08)
[2019-01-11] MEDS: VANCOMYCIN 1,200 MG in NS 250 ML IV SCH (14:45)
[2019-01-12] MEDS: CARDIZEM PO SCH ×4 (02:40→20:37)
[2019-01-12] MEDS: D5 1/2 NS + KCL 20 MEQ 1,000 ML IV SCH ×2 (02:40→15:47)
[2019-01-12] MEDS: CATAPRES PO PRN (02:40)
[2019-01-12] MEDS: HUMULIN R SUBQ SCH ×4 (06:12→20:38)
[2019-01-12] MEDS: ATIVAN PO PRN ×2 (08:27→16:04)
[2019-01-12] MEDS: PROTONIX IV SCH ×2 (08:28→20:38)
[2019-01-12] MEDS: LANTUS INSULIN SUBQ SCH ×2 (08:29→20:38)
[2019-01-12] MEDS: LOVENOX SUBQ SCH (08:29)
[2019-01-12] MEDS: SODIUM CHLORIDE 0.9% INJ SCH (08:29)
[2019-01-12 10:20] LABS: BASO# 0.03 X1000 (0.0-0.2); BASO% 0.3 % (0.0-0.8); EOS# 1.17 X1000 (0.0-0.7); EOS% 13.4 % (0.0-10.0); HEMATOCRIT 28.6 % (37.0-47.0); HEMOGLOBIN 8.7 g/dL (12.0-16.0); IMM GRAN# 0.02 X1000 (0.0-0.04); IMM GRAN% 0.2 % (0.0-0.5); LYMPH# 1.42 X1000 (1.2-3.4); LYMPH% 16.2 % (20.5-51.1); MCH 23.4 PG (27-31); MCHC 30.4 g/dL (33-37); MCV 76.9 FL (81-99); MONO# 0.44 X1000 (0.11-0.59); MPV 11.1 FL (7.4-10.4); NEUT# 5.67 X1000 (1.4-6.5); NEUT% 64.9 % (42.2-75.2); PLT 332 X1000 (130-400); RBC 3.72 XMIL (4.2-5.4); RDW 17.3 % (11.5-14.5); WBC 8.75 X1000 (4.8-10.8)
[2019-01-12 10:42] LABS: AGAP 9; BUN 9 mg/dL (8-22); CALCIUM 8.2 mg/dL (8.8-10.2); CHLORIDE 107 mmol/L (98-107); COSMO 284; CREATININE 0.9 mg/dL (0.5-0.9); ESTIMATED GFR > 60; GLUCOSE 142 mg/dL (70-104); MAGNESIUM 1.5 mg/dL (1.5-2.7); POTASSIUM 3.3 mmol/L (3.5-5.1); SODIUM 142 mmol/L (136-145); TCO2 26 mmol/L (25-35)
--- NOTE | 2019-01-12 10:51 | PROGRESS NOTE ---
DATE: 01/12/2019 SUBJECTIVE: Ms. Juarez is feeling much better. She is asking when she can go home. OBJECTIVE: Vital signs: She remains afebrile, pulse 97, respirations 17, blood pressure 142/77. HEENT: Pupils are equal and round. Lungs: Clear in all lung francois. Cardiovascular: Regular rhythm and rate without murmur or S3. ASSESSMENT AND PLAN: 1. She is alert and oriented. The history we get from the patient and her , she took prescribed lorazepam a few months ago, has not had a dose of that or any other benzodiazepine in at least a month. She had clonazepam a few years ago; around that time a family member . She had pain medication with hydrocodone, oxycodone a few months ago and it appeared she had some withdrawal. She had imaging finding of old posterior encephalomalacia with no good explanation. She had a head injury apparently when she fell in April, 8 months ago, and she sustained altered consciousness. There is no apparent residual neurologic deficit. Apparently was told by her mother that she was a twin, had difficult and had a static -related anoxic brain event. Anyway, she is better and blood pressure is up and hemodynamically appears stable, and I think hopefully we are close to going home. 2. Paroxysmal atrial fibrillation, rate is controlled. 3. Diabetes mellitus type 2. 4. Hypertension. 5. 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 We never did obtain the MRI. She may get to go home this weekend. REVIEW IF HER ORDERS: I do not see any change. cc: Hiram Hammer MD
[2019-01-12] MEDS: VANCOMYCIN 1,200 MG in NS 250 ML IV SCH (14:18)
[2019-01-12] MEDS ORDERED: TYLENOL PO PRN (20:15)
[2019-01-13] MEDS: ATIVAN PO PRN ×2 (00:04→08:25)
[2019-01-13] MEDS: CARDIZEM PO SCH ×2 (01:13→08:25)
[2019-01-13] MEDS: CATAPRES PO PRN (01:13)
[2019-01-13] MEDS: D5 1/2 NS + KCL 20 MEQ 1,000 ML IV SCH (03:57)
[2019-01-13] MEDS: HUMULIN R SUBQ SCH ×2 (06:18→10:31)
[2019-01-13] MEDS: SODIUM CHLORIDE 0.9% INJ SCH (08:25)
[2019-01-13] MEDS: LOVENOX SUBQ SCH (08:25)
[2019-01-13] MEDS: PROTONIX IV SCH (08:25)
[2019-01-13] MEDS: LANTUS INSULIN SUBQ SCH (08:25)
--- NOTE | 2019-01-13 13:27 | DISCHARGE SUMMARY ---
ADMISSION DATE: 01/08/2019 DISCHARGE DATE: 01/13/2019 PRIMARY CARE PHYSICIAN: Has no primary care physician. HISTORY OF PRESENT ILLNESS: A 63-year-old. states that she ran out of her Zanaflex. She would take, he is not sure, but at least 4 of those a day. He did note sometimes she felt very weak after taking those. She, in the last 48 hours, became more confused and agitated. Started progressing, complained of nausea and required four-point restraint. Just was moving all extremities and trying to get out of the bed. We tried to give her back the Zanaflex and get her back on her scheduled dose, and moved her to the ICU. PAST MEDICAL HISTORY: 1. Hypertension. 2. Gastroesophageal reflux. 3. Colon cancer in 2000 with colon resection. No sign of reoccurrence. PAST SURGICAL HISTORY: 1. Three sections. 2. Hysterectomy. 3. Three lumbar surgeries. 4. Cholecystectomy. 5. Colectomy secondary to colon cancer. HOSPITAL COURSE: She was given IV fluids. Her blood pressure seemed to be elevated. We did a chest x-ray which was negative. No sign of infiltrate. Abdominal and pelvic CT showed some atelectasis versus pneumonia, left lower lobe, possible distal esophagitis. Hepatic cyst which appeared unremarkable. Began on antibiotics and treating her for pneumonia. Followup chest x-ray on 01/08/2019. We had put an NG tube in because of persistent nausea and then we placed a PICC line. NG tube was pulled out and the nausea resolved. Blood pressure seemed to dip down low and so we stopped her Zanaflex. Consulted Dr. Zarate. He felt she had a left hemianopia with confusion, possible delirium, confabulation. I did not see any evidence of increased intracranial pressure. CT findings, she has an area of encephalomalacia. I do not know whether it is remote or a recent incident. Did not appear to be acute or subacute. She had recent cessation of high- dose tizanidine which generally would be associated with elevated blood pressure, restlessness, agitation, but not usually confusion. Apparently, she had some benzodiazepines but there is no history of recent benzodiazepines or opiates. She did appear to be intravascularly dry and on presentation, serum creatinine was 0.7 so renal function remained good. History of diabetes. We followed her pattern of sugars. We stop the Zanaflex and put her on a little bit of Ativan. She was requesting eating and have a diet. She was eating well and then wanted to go home on 01/13/2019. I will let her go home. She takes Cardizem 60 mg p.o. q.6 hours. I will change that to 240 mg once a day. She takes Lantus insulin 18 units b.i.d. We will continue that. There was no growth in either of the blood cultures. As far as whether to pursue benzodiazepines or Zanaflex in the future, I am going to leave that up to her primary care. At this point, I think she ought to stay off of them. That would be my recommendation. cc: Hiram Hammer MD
[2019-01-13 13:32] VITALS: BP 150/80
== END 2019-01-13 13:55 | disposition home health service (06) | DRG 896 ==
LOC: ED 09:47 → ICU 16:40
PROVIDERS: ATTEND Emergency Medicine

== ENCOUNTER 2019-02-06 08:29 | Inpatient (IN) ==
--- NOTE | 2019-02-06 09:18 | PROVIDER DOCUMENTATION ---
HPI-Abdominal Pain/GI Problem - General Chief Complaint: Nausea/Vomiting Stated Complaint: VOMITING Time Seen by Provider: 02/06/19 08:40 Source: patient, family Allergies/Adverse Reactions: Patient Allergies Allergy/AdvReac Type Severity Reaction Status Date / Time morphine AdvReac FATIGUE Verified 02/06/19 08:42 nalbuphine HCl * AdvReac Unknown Verified 02/06/19 08:42 [From Nubain] Home Medications: Home Medication List Medication Instructions Recorded Confirmed Last Taken Type Lisinopril 20 mg PO DAILY 07/25/15 02/06/19 02/05/19 History Diltiazem C.d. [Cardizem C.d] 240 mg PO DAILY 30 Days #30 cap 01/13/19 02/06/19 02/05/19 Rx Insulin Glargine [Lantus Insulin] 18 unit SUBQ BID 30 Days #1 unit 01/13/19 02/06/19 02/05/19 Rx Tizanidine HCl 4 mg PO TID 02/06/19 02/06/19 02/04/19 History - History of Present Illness-ABD Nature of Presenting Problems: patient vomited numerous times since last night, denied abdominal pain or diarrhea. old record showed similar symptoms when patient was out of Zanaflex .patient denied chest pain or shortness of breath. Pain Radiation: reports: no radiation Quality of Pain: reports: none Severity in ED: reports: mild Onset/Duration: reports: last night Timing: reports: improving Activities at Onset: reports: none Exposure to sick contacts?: No Modifying Factors: improves with: other (out of zanaflex) Associated Symptoms: denies: anxiety, chest pain, diarrhea Dark Stools Present?: reports: none noticed Rectal Bleeding: reports: none Rectal Pain: reports: none Emesis Description: reports: clear. denies: red blood, coffee grounds, blood- streaked Bruising or Bleeding Gums?: No Similar Symptoms Previously?: Yes Recently seen or treated by another doctor?: No Review of Systems - Adult - REVIEW OF SYSTEMS - ADULT Constitutional: reports: nyla. denies: fever Eyes: reports: no symptoms reported Ears, Nose, Mouth & Throat: reports: no symptoms reported Cardiovascular: reports: no symptoms reported Respiratory: reports: no symptoms reported Gastrointestinal: reports: nausea, vomiting Genitourinary: reports: no symptoms reported Musculoskeletal: reports: no symptoms reported Integumentary: reports: no symptoms reported Neurological: reports: no symptoms reported Psychiatric: reports: no symptoms reported Endocrine: reports: no symptoms reported Hematologic/Lymphatic: reports: no symptoms reported Allergic/Immunologic: reports: no symptoms reported Past History - Adult - PAST MEDICAL HISTORY-ADULT Review of Records: reports: Nursing Assessment Review Major Childhood Illnesses: reports: denies history Cardiovascular: reports: HTN Respiratory: reports: denies history Gastrointestinal: reports: cancer (colon), GERD Obstetrical/Gynecological: reports: denies history Genitourinary: reports: denies history Musculoskeletal: reports: chronic pain (sees pain clinic in [place]) Neurological: reports: denies history Psychiatric: reports: other (drug seeking behavior, drug dependence, Oxyco done/Zanaflex) Endocrine/Immune: reports: Diabetes Other Conditions: reports: denies history - PRIOR SURGERIES/PROCEDURES Surgical/Procedure History: reports: appendectomy, cholecystectomy, hysterectomy , BTL, , bowel surgery, back/neck - PRIOR HOSPITALIZATIONS Prior Hospitalizations: reports: for other non-related - IMMUNIZATION STATUS Childhood Immunizations: See Nurse Assessment Flu Vaccine: See Nurse Assessment - FAMILY HISTORY Family History: reviewed, not pertinent Physical Exam-General - PHYSICAL EXAM-ADULT Initial Vital Signs Reviewed: Yes - CONSTITUTIONAL General Appearance: alert, no apparent distress - EYES Eyes: PERRL/EOMI - HEAD, EARS, NOSE, MOUTH & THROAT HENMT: normocephalic/atraumatic, moist mucous membranes - NECK Neck: non-tender, supple - RESPIRATORY Respiratory: chest non-tender, lungs clear, normal breath sounds, no pleuratic chest pain, no respiratory distress, no accessory muscle use - CARDIOVASCULAR Cardiovascular: normal peripheral pulses, regular rate, rhythm, no edema, no gallop, no JVD, no murmur - GASTROINTESTINAL (ABDOMEN) Abdominal Exam: normal bowel sounds, non tender, soft, no organomegaly - LYMPHATIC Lymphatic: no adenopathy - MUSCULOSKELETAL Back Exam: normal inspection, no CVA tenderness, no vertebral tenderness Extremity: normal range of motion, non-tender, normal gait, normal inspection, no pedal edema, no calf tenderness - SKIN Integumentary: normal color, warm/dry - NEUROLOGIC Neurologic: trim operator II-XII nml as tested, grossly normal, no motor/sensory deficits - PSYCHIATRIC Psych/Mental Status: normal mood/affect Progress - PLAN OF CARE/RESULTS Progress/Plan/Lab Results: Vital Signs - 8 hr 02/06/19 08:31 Temperature 97.8 F Pulse Rate 93 H Respiratory Rate 20 Blood Pressure 98/68 O2 Sat by Pulse Oximetry 97 Result Diagrams: 02/07/19 04:12 02/07/19 04:12 Procedures - CENTRAL LINE Consent Form Signed?: No (emergency ) Central Line Lumen: triple Central Line Procedure Prep: Kit Utilized, Chloraprep Patient Position (To prevent Air Embolism): Trendelenburg (SC/IJ) Central Line Position: subclavian (R) Ultrasound Guided?: No Hat, mask, sterile gown, & sterile gloves worn by physician?: Yes Site scrubbed vigorously for 30 seconds? (Groin: 2 min): Yes Anesthetic: 1%, Lidocaine/Xylocaine Volume of Anesthetic (ml's): 5 Post Procedure: Sutured in place, Sterile field maintained, BioPatch placed, Sterile dressing applied, Blood aspirated from each lumen, Placement verfied by XRAY Complications: none Departure - Departure Date of Disposition Decision: 02/06/19 Time of Disposition Decision: 14:00 DIAGNOSIS: Altered mental status, Withdrawal complaint Disposition: ADMITTED INPATIENT 09 Certified Medical Emergency: Emergent Condition: Serious - Critical Care Note This patient required my direct & personal management of CC.: Yes Total Time (mins): 31 Critical Care Statement: This patient required my direct personal management to treat or rule out processes, the absence of which, could potentiallly result in sudden, clinically significant life or limb threatening deterioration. Attestation - Physician/ NAHUM Attestation Patient care was provided by Advanced Practice Provider:: No The physician spent face to face time with patient:: Yes Advanced Practice Provider documentation review:: Supervising physician onsite and consulted in the evaluation and care of this patient. The physician did have a face to face encounter with the patient.
[2019-02-06] MEDS ORDERED: ZANAFLEX PO ONE (09:33)
[2019-02-06] MEDS ORDERED: NORFLEX IM ONE (09:35)
[2019-02-06 10:53] LABS: BASO# 0.08 X1000 (0.0-0.2); BASO% 0.4 % (0.0-0.8); EOS# 0.39 X1000 (0.0-0.7); EOS% 2.1 % (0.0-10.0); HEMATOCRIT 36.9 % (37.0-47.0); HEMOGLOBIN 11.5 g/dL (12.0-16.0); IMM GRAN# 0.08 X1000 (0.0-0.04); IMM GRAN% 0.4 % (0.0-0.5); LYMPH# 1.79 X1000 (1.2-3.4); LYMPH% 9.9 % (20.5-51.1); MCH 24.1 PG (27-31); MCHC 31.2 g/dL (33-37); MCV 77.2 FL (81-99); MONO# 0.58 X1000 (0.11-0.59); MONO% 3.2 % (1.7-9.3); MPV 11.6 FL (7.4-10.4); NEUT# 15.22 X1000 (1.4-6.5); PLT 425 X1000 (130-400); RBC 4.78 XMIL (4.2-5.4); RDW 17.9 % (11.5-14.5); WBC 18.14 X1000 (4.8-10.8)
[2019-02-06] MEDS ORDERED: ATIVAN IM ONE ×2 (10:53→12:04)
[2019-02-06 11:25] LABS: ALBUMIN 4.6 g/dL (3.5-5.0); CALCIUM 10.2 mg/dL (8.8-10.2); CREATININE 1.6 mg/dL (0.5-0.9); POTASSIUM 4.6 mmol/L (3.5-5.1); TOTAL BILIRUBIN 0.36 mg/dL (0.20-1.00); TOTAL PROTEIN 9.1 g/dL (6.3-8.3)
[2019-02-06] MEDS ORDERED: GEODON IM ONE ×2 (11:47→12:03)
[2019-02-06] MEDS ORDERED: STERILE WATER INJ. INJ ONE ×2 (11:47→12:03)
[2019-02-06] MEDS ORDERED: ZOFRAN IM ONE (11:50)
[2019-02-06] MEDS ORDERED: BENADRYL IM ONE (12:05)
[2019-02-06] MEDS ORDERED: REGLAN IV ONE (13:16)
[2019-02-06 13:19] LABS: INR 0.97
[2019-02-06] MEDS ORDERED: ATIVAN IV ONE (13:22)
[2019-02-06] MEDS ORDERED: NS 1,000 ML IV ONE ×2 (13:23→15:04)
--- NOTE | 2019-02-06 13:31 | Diag Imaging Result Doc PS360 ---
CHEST-PORTABLE - 02/06/2019 INDICATION: central line placement COMPARISON: 01/10/2019 FINDINGS: There is a right subclavian central line in good position with the catheter tip at the cavoatrial junction. Lung volumes are low. No infiltrates. Heart size is normal. No pneumothorax or pleural effusion. IMPRESSION: No acute disease or complication. Electronically signed by Akhil Grossman 02/06/2019 1:28 PM
[2019-02-06 13:40] LABS: PTT < 20.0 Seconds (22.3-41.8)
[2019-02-06] MEDS ORDERED: MORPHINE IV ONE (13:57)
[2019-02-06 14:59] LABS: CK INDEX 3.4 (0.0-2.5); CK-MB 6.37 ng/mL (0.0-5.0)
[2019-02-06] MEDS ORDERED: ROCEPHIN 1 GM in NS 50 ML IV ONE (15:07)
[2019-02-06] MEDS ORDERED: VANCOMYCIN 1 GM/NS 1 GM/250 ML IVPB IV ONE (15:15)
[2019-02-06] MEDS ORDERED: ZOFRAN IV PRN (15:35)
[2019-02-06] MEDS ORDERED: TYLENOL PO PRN (15:35)
[2019-02-06] MEDS ORDERED: LOPRESSOR IV ONE (15:36)
[2019-02-06] MEDS ORDERED: DUONEB (A & A) INH SCH (16:00)
[2019-02-06] MEDS: HUMULIN R SUBQ SCH ×2 (16:00→20:33)
[2019-02-06 16:25] LABS: URINE SOURCE CLEAN CATCH
[2019-02-06] MEDS ORDERED: CARDIZEM IV ONE (16:28)
[2019-02-06 16:31] LABS: BILIRUBIN URINE NEGATIVE (NEGATIVE); BLOOD URINE TRACE (NEGATIVE); COLOR YELLOW; GLUCOSE URINE NEGATIVE (NEGATIVE); KETONE URINE TRACE mg/dL (NEGATIVE); PROTEIN URINE 30 mg/dL (NEGATIVE); SP GRAVITY URINE 1.017; TURBIDITY URINE CLEAR (CLEAR)
[2019-02-06 16:32] LABS: LEUKOCYTES URINE NEGATIVE (NEGATIVE); NITRITE URINE NEGATIVE (NEGATIVE); UROBILINOGEN URINE NORMAL (NORMAL)
[2019-02-06 16:33] LABS: UR EPITHELIAL CELLS <10 /HPF (<10); URINE BACTERIA NEGATIVE /HPF; URINE RBC <10 /HPF (<10); URINE WBC <10 /HPF (<10)
[2019-02-06 16:46] LABS: UR AMPHETAMINES QUAL NONE DETECTED (NONE DETECT); UR BARBITUATES QUAL NONE DETECTED (NONE DETECT); UR BENZODIAZEPIN QUAL NONE DETECTED (NONE DETECT); UR CANNABINOIDS QUAL NONE DETECTED (NONE DETECT); UR COCAINE QUAL NONE DETECTED (NONE DETECT); UR METHADONE QUAL NONE DETECTED (NONE DETECT); UR OPIATES QUAL PRESUMPTIVE POSITIVE (NONE DETECT); UR OXYCODONE QUAL NONE DETECTED (NONE DETECT); UR PCP QUAL NONE DETECTED (NONE DETECT)
--- NOTE | 2019-02-06 16:52 | Diag Imaging Result Doc PS360 ---
EXAM: KUB ABDOMEN 02/06/2019 HISTORY: vomiting; ngt placed TECHNIQUE: AP semiupright portable KUB COMMENT: There is an NG tube with its tip in the stomach. The study actually demonstrates the chest and upper portion of the abdomen. There is a right subclavian catheter with its tip in the superior vena cava. There are surgical clips in the right upper quadrant. There is stool in the colon. There is no evidence of small bowel or gastric dilatation. IMPRESSION: NG tube in the stomach. Electronically signed by Eliu Toure 02/06/2019 4:49 PM
[2019-02-06] MEDS ORDERED: SODIUM CHLORIDE 0.9% INJ SCH (17:00)
[2019-02-06] MEDS ORDERED: NS NEB INH SCH (17:00)
--- NOTE | 2019-02-06 17:08 | EKG Report ---
Test Performed on : 02/06/2019 4:27:38 PM Test Reason : tachycardia Blood Pressure : / mmHG Vent. Rate : 169 BPM Atrial Rate : 170 BPM P-R Int : 000 ms QRS Dur : 074 ms QT Int : 272 ms P-R-T Axes : 000 000 101 degrees QTc Int : 456 ms Atrial fibrillation. with rapid ventricular response. ST elevation, consider inferior injury or acute infarct ACUTE CO / STEMI Consider right ventricular involvement in acute inferior infarct Abnormal ECG When compared with ECG of 10-JAN-2019 08:28, Significant changes have occurred Unconfirmed Result
[2019-02-06] MEDS: CARDIZEM 125 MG/D5W 125 MG/125 ML IVPB IV SCH (17:44)
[2019-02-06] MEDS: PROTONIX IV SCH (17:57)
[2019-02-06 19:13] LABS: HEMOGLOBIN A1C 7.5 % (4.8-6.0)
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
[2019-02-06] MEDS: MAXIPIME 1 GM in NS 50 ML IV SCH (19:36)
[2019-02-06] MEDS: ZYVOX 600 MG/D5W 600 MG/300 ML IVPB IV SCH ×2 (19:36→20:33)
[2019-02-06] MEDS: NS 1,000 ML IV SCH (19:36)
[2019-02-06] MEDS: HALDOL IV PRN ×2 (20:36→22:13)
[2019-02-06] MEDS: XOPENEX NEB INH SCH (21:21)
[2019-02-06] MEDS: ATROVENT NEB INH SCH (21:21)
[2019-02-06] MEDS: LOPRESSOR IV SCH (22:16)
[2019-02-07] MEDS: CARDIZEM 125 MG/D5W 125 MG/125 ML IVPB IV SCH ×2 (00:54→10:02)
[2019-02-07] MEDS: LOPRESSOR IV SCH ×4 (03:07→22:07)
[2019-02-07] MEDS: ATROVENT NEB INH SCH ×4 (03:19→22:02)
[2019-02-07] MEDS: XOPENEX NEB INH SCH ×4 (03:19→22:02)
[2019-02-07] MEDS: NS 1,000 ML IV SCH ×3 (04:18→23:22)
[2019-02-07] MEDS: PROTONIX IV SCH ×2 (04:18→17:24)
[2019-02-07] MEDS: HALDOL IV PRN ×4 (04:18→20:42)
[2019-02-07] MEDS: HUMULIN R SUBQ SCH ×4 (06:29→22:02)
--- NOTE | 2019-02-07 06:34 | Diag Imaging Result Doc PS360 ---
CT HEAD W/O CONTRAST - 02/06/2019 INDICATION: altered mental status COMPARISON: 01/08/2019 FINDINGS: There is stable extensive encephalomalacia in the posterior cerebral hemispheres bilaterally. The cerebellar hemispheres are also involved. No new hypodensity. No intracranial mass or hemorrhage. The skull is intact. The sinuses are clear. IMPRESSION: No change from prior. This exam was performed using automated exposure control, adjustment of mA or kV according to patient size, and/or use of iterative reconstruction technique Electronically signed by Akhil Grossman 02/07/2019 6:32 AM
--- NOTE | 2019-02-07 06:38 | Diag Imaging Result Doc PS360 ---
CT ABDOMEN/PELVIS W/O CONTRAST - 02/06/2019 INDICATION: intractable nausea and vomiting COMPARISON: 01/08/2019 FINDINGS: There is mild cardiomegaly. There are increasing infiltrates in both lung bases. This is compatible with pneumonia or edema. There is some wall thickening of the distal esophagus stable from prior, this may represent reflux esophagitis. Nasogastric tube is coiled in the stomach in good position. Stable cholecystectomy clips. No radiodense renal stones. No hydronephrosis or hydroureter. There is moderate constipation. No bowel obstruction or inflammation. Stable benign cyst in the liver. Parekh catheter in the urinary bladder. Uterus is absent. Urinary bladder and rectum are normal. There are moderate degenerative changes of the spine. No acute or suspicious bony lesion. IMPRESSION: 1. Cardiomegaly. Bibasilar infiltrates compatible with pneumonia or pulmonary edema. 2. Constipation. 3. Possible distal esophagitis stable from prior. This exam was performed using automated exposure control, adjustment of mA or kV according to patient size, and/or use of iterative reconstruction technique Electronically signed by Akhil Grossman 02/07/2019 6:35 AM
[2019-02-07 06:52] LABS: BASO# 0.06 X1000 (0.0-0.2); BASO% 0.4 % (0.0-0.8); EOS# 0.01 X1000 (0.0-0.7); EOS% 0.1 % (0.0-10.0); HEMATOCRIT 28.3 % (37.0-47.0); HEMOGLOBIN 8.7 g/dL (12.0-16.0); IMM GRAN# 0.09 X1000 (0.0-0.04); IMM GRAN% 0.5 % (0.0-0.5); LYMPH% 12.2 % (20.5-51.1); MCH 23.5 PG (27-31); MCHC 30.7 g/dL (33-37); MCV 76.3 FL (81-99); MONO% 7.3 % (1.7-9.3); MPV 12.3 FL (7.4-10.4); NEUT# 13.06 X1000 (1.4-6.5); NEUT% 79.5 % (42.2-75.2); PLT 373 X1000 (130-400); RBC 3.71 XMIL (4.2-5.4); WBC 16.42 X1000 (4.8-10.8)
[2019-02-07 07:00] LABS: ALB/GLOB RATIO 1.1; CALCIUM 9.1 mg/dL (8.8-10.2); CREATININE 1.1 mg/dL (0.5-0.9); MAGNESIUM 1.5 mg/dL (1.5-2.7); POTASSIUM 3.9 mmol/L (3.5-5.1); TOTAL BILIRUBIN 0.51 mg/dL (0.20-1.00); TOTAL PROTEIN 7.6 g/dL (6.3-8.3)
[2019-02-07 07:06] LABS: INR 1.04; PROTIME 13.8 Seconds (11.0-16.0)
[2019-02-07 07:07] LABS: PTT 25.6 Seconds (22.3-41.8)
[2019-02-07] MEDS: MAXIPIME 1 GM in NS 50 ML IV SCH ×2 (07:43→20:42)
--- NOTE | 2019-02-07 08:24 | EKG Report ---
Test Performed on : 02/07/2019 06:50:31 AM Test Reason : chest pain Blood Pressure : / mmHG Vent. Rate : 092 BPM Atrial Rate : 092 BPM P-R Int : 162 ms QRS Dur : 080 ms QT Int : 382 ms P-R-T Axes : 041 014 122 degrees QTc Int : 472 ms Normal sinus rhythm. Moderate voltage criteria for LVH, may be normal variant Nonspecific ST and T wave abnormality Abnormal ECG When compared with ECG of 06-FEB-2019 16:27, (Unconfirmed) Sinus rhythm. has replaced Atrial fibrillation. Vent. rate has decreased BY [address] less depressed in Lateral leads Nonspecific T wave abnormality now evident in Inferior leads T wave inversion more evident in Lateral leads Baseline artifact, suspect tremor Confirmed by Richelle YBARRA, Franklin Mcdonald ([id number]) on 02/07/2019 8:33:13 AM
[2019-02-07] MEDS: ZYVOX 600 MG/D5W 600 MG/300 ML IVPB IV SCH ×2 (08:56→20:42)
[2019-02-07] MEDS ORDERED: ROCEPHIN 1 GM in NS 50 ML IV SCH (09:00)
[2019-02-07] MEDS ORDERED: ZOFRAN IV PRN (09:45)
--- NOTE | 2019-02-07 10:11 | PROGRESS NOTE ---
DATE: 02/07/2019 SUBJECTIVE: The patient is definitely more awake today. She reports feeling some back pain. Denies any fever or chills. OBJECTIVE: Vital Signs: Temperature 98.7 degrees, heart rate 116, respiratory rate 22, blood pressure 171/106, O2 saturation 100% on room air. General Examination: This is a chronically ill- appearing, 64-year-old, female lying in bed, in no acute distress. HEENT: Head is normocephalic and atraumatic. Neck: No JVD noted. No carotid bruits. No lymphadenopathy. No thyromegaly. Cardiovascular Examination: S1 and S2 heard. Irregularly irregular, and tachycardic but no murmurs, gallops, or rubs noted. Respiratory Examination: Decreased breath sounds globally. Patient is not using any accessory muscles or having work of breathing. Abdomen: Soft. Nontender to palpation. Bowel sounds present. No organomegaly. Extremities: Trace pedal edema in both lower extremities. Peripheral pulses present in both legs. Neurological Examination: The patient is awake. Oriented to person and place. Speech is slow but coherent. Moved four extremities. Laboratory Data: White cell count 16.42, hemoglobin 8.7, hematocrit 28.3, platelets 373,000. Creatinine is 1.1, glucose is 164. Abdomen CT showed cardiomegaly with bibasilar infiltrates compatible with pneumonia or pulmonary edema, constipation, and possible distal esophagitis. ASSESSMENT AND PLAN: 1. Metabolic encephalopathy, most likely related to Zanaflex withdrawal. I think this patient is much better. The patient has been receiving Haldol for agitation, Ativan, Geodon, and morphine. At this point, she is more stable. We will continue to monitor this patient in the intensive care unit. 2. Intractable nausea. The patient reports still feeling sick from her stomach. I think, at this point, that we will use Zofran 4 mg intravenously every 4 hours. 3. Chronic pain syndrome. That is why the patient was taking Zanaflex. We will continue to hold it. 4. Hypertension. We will continue with the same management. 5. Atrial fibrillation with rapid ventricular response. This is what we found on this patient at the time of my examination. At this point, what we are going to do is to continue with a Cardizem drip. Cardiology has been consulted. We have not repeated any echocardiogram because she had one echocardiogram from a month or two months ago. We will continue to monitor. 6. Anemia of chronic disease. Stable. 7. Diabetes mellitus type 2. We will continue with sliding scale insulin, and Accu-Chek before meals and also at bedtime. 8. Acute kidney injury. Getting much better. Creatinine was 1.6 yesterday and 1.1 today. 9. Gastroesophageal reflux disease. We will continue Protonix. 10. Bilateral pneumonia. Will continue with current antibiotic management. cc: Leon Garcia MD MTDD
--- NOTE | 2019-02-07 13:59 | CARDIOLOGY CONSULTATION ---
DATE: 02/07/2019 CONSULTATION REQUESTED BY: Hospitalist. REASON FOR CONSULTATION: Atrial fibrillation, recurrent. HISTORY: Ms. Juarez is a 64-year-old female, who was brought to the ER by her on February 06 at about 9 a.m. The reason for the ER visit was that she was having nausea and vomiting. The patient's initial electrocardiogram in the ER showed atrial fibrillation with rapid response. However, they did not call the consult until this morning. The EKG done at 4:27 p.m. showed atrial fibrillation with rapid response and question of ST myocardial infarction. They did a chest x-ray that shows no acute disease, a head CT that shows no change from the prior one that was done on January 08, and it showed extensive encephalomalacia in the posterior cerebral hemispheres bilaterally. An abdominal and pelvic CT shows possible distal esophagitis, constipation, cardiomegaly and possible pneumonia. The patient was confused this morning. Her heart rate has slowed down. She is in sinus rhythm. She has an NG tube that has been draining. The patient wants to have breakfast. She is not in any distress. PAST HISTORY: Positive for recent admission to the hospital on January 08 with confusion, vomiting, almost similar to the present admission, except that it lingered for awhile. At that time she was in atrial fibrillation, which we managed with Cardizem and she converted. She has been followed by a different cardiology team at [facility], Dr. Lopez. The patient has acid reflux. SURGICAL HISTORY: She had previous cholecystectomy. She has had spine surgery, hysterectomy, colectomy, and C-sections. FAMILY HISTORY: Really noncontributory. SOCIAL HISTORY: The patient lives with . She is not a smoker. HOME MEDICINES NOTED AT THE TIME OF THIS ADMISSION: Diltiazem CD 240 daily, insulin Lantus 18 units twice a day, lisinopril 20 mg daily, tizanidine 4 mg three times a day. ALLERGIES: She is allergic to morphine and nalbuphine. REVIEW OF SYSTEMS: Really noncontributory. Multiple systems were checked. The patient is really not having any unusual complaint in the past few months, other than she goes through periods of confusion, and vomiting. PHYSICAL EXAMINATION: Vital signs: Blood pressure is 161/94, temperature is 97 degrees, pulse 99, respirations 23. General: Patient awake, follows commands, somewhat confused. HEENT: Unremarkable. Chest: Clear lungs. Heart: Sounds regular and rhythmic. No gallop or murmur. Abdomen: Nontender. Extremities: Showed no edema. Neurologic exam: Nonfocal. Moves 4 extremities. BLOOD WORK: Hemoglobin is 8.7, hematocrit 28.3, white cell count 16,420. Sodium 141, potassium 3.9, BUN 28, creatinine is 1.0. IMAGING: The patient had an echocardiogram on recent admission, January 10, that showed normal LV systolic function, possible small muscular ventricular septal defect and hepatic cyst. IMPRESSION: 1. Patient presents with vomiting, confusion, similar to prior visit. 2. Paroxysmal atrial fibrillation. She is back in sinus rhythm. 3. Patient with history of prior stroke, evidence of encephalomalacia of the posterior portion of the brain. 4. Diabetes mellitus type 2. 5. History of hypertension. RECOMMENDATION: At this time, I would suggest to put her on short-acting Cardizem, see how she does in the hospital. I recommend that they evaluate the anemia that she has. That may require endoscopy or whatever else deemed necessary by the primary service. Cardiac-saavedra, I do not have any further suggestions. We cannot anticoagulate this patient until we identify the reason for her anemia. Please call me if further assistance is needed. I will not be rounding on her daily unless there is a specific need for it. cc: Cruz Polo MD [facility]
[2019-02-07] MEDS: CARDIZEM PO SCH ×2 (14:34→21:30)
[2019-02-07] MEDS: LANTUS INSULIN SUBQ SCH (20:43)
[2019-02-08] MEDS: CARDIZEM PO SCH ×2 (02:05→09:04)
[2019-02-08] MEDS: ATROVENT NEB INH SCH ×4 (03:05→22:28)
[2019-02-08] MEDS: XOPENEX NEB INH SCH ×4 (03:05→22:28)
[2019-02-08] MEDS: LOPRESSOR IV SCH ×2 (04:28→09:05)
[2019-02-08] MEDS: PROTONIX IV SCH ×2 (04:28→17:02)
[2019-02-08] MEDS: HUMULIN R SUBQ SCH ×4 (06:19→21:24)
[2019-02-08] MEDS: NS 1,000 ML IV SCH ×2 (07:44→16:17)
[2019-02-08] MEDS ORDERED: PRINIVIL PO SCH (09:00)
[2019-02-08] MEDS: LANTUS INSULIN SUBQ SCH ×2 (09:05→21:24)
[2019-02-08] MEDS: MAXIPIME 1 GM in NS 50 ML IV SCH ×2 (09:17→21:23)
[2019-02-08] MEDS: ZYVOX 600 MG/D5W 600 MG/300 ML IVPB IV SCH ×2 (09:18→21:23)
[2019-02-08] MEDS: CARDIZEM CD PO SCH (11:02)
[2019-02-08] MEDS: LOPRESSOR PO SCH ×2 (11:02→21:23)
[2019-02-08 11:05] LABS: RDW 17.7 % (11.5-14.5)
[2019-02-08 11:35] LABS: BASO# 0.09 X1000 (0.0-0.2); BASO% 0.7 % (0.0-0.8); EOS# 0.11 X1000 (0.0-0.7); EOS% 0.9 % (0.0-10.0); HEMATOCRIT 28.8 % (37.0-47.0); HEMOGLOBIN 8.7 g/dL (12.0-16.0); IMM GRAN# 0.09 X1000 (0.0-0.04); IMM GRAN% 0.7 % (0.0-0.5); LYMPH# 1.57 X1000 (1.2-3.4); LYMPH% 12.5 % (20.5-51.1); MCHC 30.2 g/dL (33-37); MCV 76.2 FL (81-99); MONO# 0.74 X1000 (0.11-0.59); MONO% 5.9 % (1.7-9.3); MPV 11.7 FL (7.4-10.4); NEUT# 9.99 X1000 (1.4-6.5); NEUT% 79.3 % (42.2-75.2); PLT 388 X1000 (130-400); RBC 3.78 XMIL (4.2-5.4); WBC 12.59 X1000 (4.8-10.8)
[2019-02-08 11:46] LABS: AGAP 13; BUN 10 mg/dL (8-22); CALCIUM 8.8 mg/dL (8.8-10.2); CHLORIDE 103 mmol/L (98-107); COSMO 276; CREATININE 0.8 mg/dL (0.5-0.9); ESTIMATED GFR > 60; GLUCOSE 153 mg/dL (70-104); POTASSIUM 3.9 mmol/L (3.5-5.1); SODIUM 137 mmol/L (136-145); TCO2 21 mmol/L (25-35)
--- NOTE | 2019-02-08 12:37 | PROGRESS NOTE ---
DATE: 02/08/2019 SUBJECTIVE: The patient is definitely more awake and alert. Reports mild back pain but overall she is definitely much better in comparing with admission. OBJECTIVE: Vital Signs: Temperature 97.9 degrees, heart rate 111, respiratory rate 25, blood pressure 183/113, O2 saturation 98% on room air. General Examination: This is a chronically ill- appearing, 64-year-old, female lying in bed, in no acute distress. Cardiovascular: S1, S2 heard. Irregularly irregular. Slightly tachycardic but no murmurs, gallops, or rubs. Respiratory: Decreased breath sounds globally. Patient is not using any accessory muscles or having work of breathing. Abdomen: Soft, nontender to palpation. Bowel sounds present. No organomegaly. Extremities: Trace pedal edema in both lower extremities. Peripheral pulses present in both legs. Neurological: Patient is awake, oriented in person and place. Patient moves 4 extremities spontaneously. LABORATORY DATA: The labs from today are still pending. ASSESSMENT AND PLAN: 1. Metabolic encephalopathy most likely related to Xanax withdrawal. The patient is much better. The patient has been off restraints for the last couple of hours and she is doing much better. She is on Haldol, Ativan and morphine p.r.n. for pain and agitation. At this point, patient is much more stable. I think we will be able to move her out of the PVC unit today. 2. Intractable nausea. The patient reports feeling not nauseated, so we are going to advance her diet from clear liquids to a GI soft diet and we will go from there. 3. Chronic pain syndrome. That is the reason why she was taking Zanaflex. We will continue to hold. 4. Hypertension. Blood pressure is still not well controlled with blood pressure readings between 190s and 180s. I am changing metoprolol to 12.5 mg p.o. b.i.d. Also patient is taking lisinopril 20 mg p.o. daily. I am going to change it to twice daily. We will go from there. 5. Atrial fibrillation with rapid ventricular response. Patient's heart rate has been better controlled with Cardizem p.o. 60 q.6 hours. Sometimes he is still ranging between 100s and 120s. Because she is more stable, we will change to her home medication Cardizem CD but instead of 240, we are going to use 300 mg p.o. daily. Also, for rate control, we will use metoprolol 5 mg IV q.6 hours. We are going to change to 25 mg p.o. b.i.d. and we will go from there. 6. Anemia of chronic disease. Stable. 7. Diabetes mellitus type 2. We will continue with sliding scale insulin. Accu-Chek before meals and also at bedtime. 8. Acute kidney injury. We do not have any labs from today but the creatinine from yesterday was almost back to normal. 9. Gastroesophageal reflux disease. We will continue with Protonix. 10. Bilateral pneumonia. We will continue with Zyvox and cefepime. We will continue with the same management. 11. Disposition. I think this patient is much more stable. We are going to send this patient to a regular room today. If blood pressure and heart rate are better, then will discharge her with oral antibiotics. cc: Loen Garcia MD MTDD
[2019-02-08] MEDS: PRINIVIL PO SCH (21:23)
[2019-02-09] MEDS: NS 1,000 ML IV SCH (00:43)
[2019-02-09] MEDS: XOPENEX NEB INH SCH (03:27)
[2019-02-09] MEDS: ATROVENT NEB INH SCH (03:27)
[2019-02-09] MEDS: PROTONIX IV SCH (06:08)
[2019-02-09] MEDS: HUMULIN R SUBQ SCH ×2 (06:20→11:21)
[2019-02-09 06:47] LABS: BASO# 0.05 X1000 (0.0-0.2); BASO% 0.5 % (0.0-0.8); EOS# 0.19 X1000 (0.0-0.7); EOS% 1.7 % (0.0-10.0); HEMATOCRIT 28.1 % (37.0-47.0); HEMOGLOBIN 8.6 g/dL (12.0-16.0); IMM GRAN# 0.05 X1000 (0.0-0.04); IMM GRAN% 0.5 % (0.0-0.5); LYMPH% 17.2 % (20.5-51.1); MCH 23.4 PG (27-31); MCHC 30.6 g/dL (33-37); MCV 76.4 FL (81-99); MONO# 0.63 X1000 (0.11-0.59); MONO% 5.7 % (1.7-9.3); MPV 11.2 FL (7.4-10.4); NEUT# 8.23 X1000 (1.4-6.5); NEUT% 74.4 % (42.2-75.2); PLT 382 X1000 (130-400); RBC 3.68 XMIL (4.2-5.4); RDW 18.1 % (11.5-14.5); WBC 11.05 X1000 (4.8-10.8)
[2019-02-09 07:44] LABS: CALCIUM 8.4 mg/dL (8.8-10.2); POTASSIUM 3.4 mmol/L (3.5-5.1)
[2019-02-09] MEDS: LANTUS INSULIN SUBQ SCH (08:03)
[2019-02-09] MEDS: MAXIPIME 1 GM in NS 50 ML IV SCH (08:04)
[2019-02-09] MEDS: CARDIZEM CD PO SCH (08:04)
[2019-02-09] MEDS: LOPRESSOR PO SCH (08:04)
[2019-02-09] MEDS: PRINIVIL PO SCH (08:04)
[2019-02-09] MEDS: ZYVOX 600 MG/D5W 600 MG/300 ML IVPB IV SCH (08:05)
[2019-02-09 14:47] VITALS: BP 144/77
--- NOTE | 2019-02-09 19:58 | DISCHARGE SUMMARY ---
ADMISSION DATE: 02/06/2019 DISCHARGE DATE: 02/09/2019 ADMITTING DIAGNOSIS.: 1. Metabolic encephalopathy. 2. Dehydration. 3. Encephalomalacia. 4. Chronic pain syndrome. 5. Hypertension. 6. Atrial fibrillation with rapid ventricular response. 7. Diabetes mellitus type 2. 8. Acute kidney injury. 9. Sepsis. FINAL DISCHARGE DIAGNOSIS: 1. Metabolic encephalopathy resolved. 2. Dehydration resolved. 3. Chronic pain syndrome. 4. Atrial fibrillation. 5. Anemia of chronic disease. 6. Diabetes mellitus type 2. 7. Acute kidney injury resolved. 8. Gastroesophageal reflux disease. 9. Bilateral pneumonia. 10. Hypertension. PROCEDURES AND FINDINGS: CT of the abdomen and pelvis was performed on 02/06/2019, showed cardiomegaly, bibasilar infiltrates compatible with pneumonia or pulmonary edema, constipation, possible distal esophagitis. CONSULTS: Dr. Polo for Cardiology. HOSPITAL COURSE: Ms Irene Juarez is a 64-year-old female. She was admitted on 02/06/2019 with altered mental status due to Zanaflex withdrawal. She was also having projectile vomiting. She was placed in the ICU unit. She had elevated lactates and acute kidney injury related to dehydration. She also had some metabolic encephalopathy. She also was exhibiting atrial fibrillation with RVR. The patient had some bilateral pneumonia that was noted on a CT scan, possibly due to aspiration. The patient has been known to have altered mental status from Zanaflex withdrawals in the past and has had multiple admissions in the past from this. 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 Her Zanaflex was held. NG tube was placed. The patient was given medications for her agitation. The patient did start to improve in the ICU unit after a few days. Her initial creatinine was 1.6. Her creatinine today is 1. She has been sent home on home oral medications for her pneumonia. She was in atrial fibrillation, RVR on admission. She was started on a Cardizem drip. Her heart rate did stabilize back to sinus rhythm. We are going to continue her home dose of Cardizem p.o. Also continue her home blood pressure medication. She was started on Zofran IV while in the ICU. She has not had any vomiting. She is tolerating p.o. diet. DISCHARGE LAB DATA: Sodium 142, potassium 3.4, chloride 110, carbon dioxide 18, BUN is 9, creatinine is 1, estimated GFR is 56, glucose 138, calcium 8.4. White blood cell count 11.05, hemoglobin 8.6, hematocrit 28.1, platelet count 382,000. DISCHARGE MEDICATIONS: 1. Diltiazem CD 300 mg p.o. daily. 2. Lantus insulin 18 units subcu b.i.d. 3. Lopressor 25 mg p.o. b.i.d. 4. Lisinopril 20 mg p.o. b.i.d. DISCHARGE DIET: Resume diabetic diet as tolerated. DISCHARGE ACTIVITY: Resume activity as tolerated. DISPOSITION: Patient is to discharge home with self care. She is to follow up with her physician primary care sports medicine as needed. She is to continue all her home medications as ordered. She is refrain from all smoking or alcohol. Any other further recommendations per physician primary care sports medicine. Dictated by YOGI Yeager for Leon Garcia MD cc: Leon Garcia MD MTDD
== END 2019-02-09 16:14 | disposition home or self-care (01) | DRG 896 ==
LOC: ED 08:29 → EDIPHOLD 15:39 → ICU 19:01 → 2N 02-07 18:46 → 1N 02-08 18:03
PROVIDERS: ATTEND Internal Medicine

== ENCOUNTER 2019-04-23 09:21 | Inpatient (IN) ==
[2019-04-23] MEDS ORDERED: ZANAFLEX PO ONE (09:42)
[2019-04-23] MEDS ORDERED: NS 1,000 ML IV ONE (09:42)
--- NOTE | 2019-04-23 10:07 | EKG Report ---
Test Performed on : 04/23/2019 09:46:56 AM Test Reason : tachycardia Blood Pressure : / mmHG Vent. Rate : 143 BPM Atrial Rate : 143 BPM P-R Int : 132 ms QRS Dur : 090 ms QT Int : 288 ms P-R-T Axes : 068 010 096 degrees QTc Int : 444 ms Sinus tachycardia. Nonspecific ST and T wave abnormality Abnormal ECG When compared with ECG of 07-FEB-2019 06:50, Vent. rate has increased BY 51 BPM Nonspecific T wave abnormality, improved in Inferior leads T wave inversion less evident in Lateral leads Unconfirmed Result
[2019-04-23 11:14] LABS: BASO# 0.05 X1000 (0.0-0.2); BASO% 0.6 % (0.0-0.8); EOS# 0.35 X1000 (0.0-0.7); HEMATOCRIT 29.7 % (37.0-47.0); HEMOGLOBIN 8.7 g/dL (12.0-16.0); IMM GRAN# 0.04 X1000 (0.0-0.04); IMM GRAN% 0.5 % (0.0-0.5); LYMPH# 1.21 X1000 (1.2-3.4); LYMPH% 13.8 % (20.5-51.1); MCH 21.1 PG (27-31); MCHC 29.3 g/dL (33-37); MCV 72.1 FL (81-99); MONO% 5.7 % (1.7-9.3); MPV 10.8 FL (7.4-10.4); NEUT# 6.65 X1000 (1.4-6.5); NEUT% 75.4 % (42.2-75.2); PLT 484 X1000 (130-400); RBC 4.12 XMIL (4.2-5.4); RDW 17.6 % (11.5-14.5)
[2019-04-23 11:22] LABS: AGAP 18; ALB/GLOB RATIO 1.1; ALBUMIN 4.1 g/dL (3.5-5.0); ALKALINE PHOSPHATASE 142 U/L (32-104); BUN 15 mg/dL (8-22); CALCIUM 9.8 mg/dL (8.8-10.2); CHLORIDE 104 mmol/L (98-107); COSMO 292; CREATININE 0.8 mg/dL (0.5-0.9); ESTIMATED GFR > 60; GLUCOSE 118 mg/dL (70-104); GOT 15 U/L (10-30); GPT 14 U/L (10-36); POTASSIUM 2.8 mmol/L (3.5-5.1); SODIUM 146 mmol/L (136-145); TCO2 24 mmol/L (25-35); TOTAL BILIRUBIN 0.31 mg/dL (0.20-1.00); TOTAL PROTEIN 7.9 g/dL (6.3-8.3)
[2019-04-23 11:22] LABS: URINE SOURCE CLEAN CATCH
[2019-04-23 11:24] LABS: BILIRUBIN URINE NEGATIVE (NEGATIVE); BLOOD URINE NEGATIVE (NEGATIVE); COLOR STRAW; GLUCOSE URINE TRACE mg/dL (NEGATIVE); KETONE URINE NEGATIVE (NEGATIVE); LEUKOCYTES URINE NEGATIVE (NEGATIVE); NITRITE URINE NEGATIVE (NEGATIVE); PH URINE 6.5; PROTEIN URINE 30 mg/dL (NEGATIVE); TURBIDITY URINE CLEAR (CLEAR); UR EPITHELIAL CELLS <10 /HPF (<10); URINE BACTERIA NEGATIVE /HPF; URINE RBC <10 /HPF (<10); URINE WBC <10 /HPF (<10); UROBILINOGEN URINE NORMAL (NORMAL)
[2019-04-23 11:38] LABS: EOS 5 % (1-10); LYMPHS 9 % (21-51); MONO 4 % (1-9); SEGS 82 % (42-75)
[2019-04-23] MEDS ORDERED: KLOR-CON PO ONE (12:35)
[2019-04-23] MEDS ORDERED: CARDIZEM CD PO ONE (13:20)
[2019-04-23] MEDS ORDERED: ATIVAN IV ONE ×2 (13:36→18:07)
[2019-04-23] MEDS ORDERED: CARDIZEM IV ONE (14:25)
[2019-04-23] MEDS ORDERED: CARDIZEM ONE (14:30)
[2019-04-23] MEDS ORDERED: CARDIZEM 100 MG/NS 100 MG/100 ML IVPB IV SCH (14:30)
--- NOTE | 2019-04-23 15:42 | EKG Report ---
Test Performed on : 04/23/2019 1:28:19 PM Test Reason : ED. No order in [place] Blood Pressure : / mmHG Vent. Rate : 147 BPM Atrial Rate : 147 BPM P-R Int : 130 ms QRS Dur : 084 ms QT Int : 266 ms P-R-T Axes : 047 009 104 degrees QTc Int : 416 ms Sinus tachycardia. Marked ST abnormality, possible lateral subendocardial injury Abnormal ECG When compared with ECG of 23-APR-2019 09:46, (Unconfirmed) No significant change was found Unconfirmed Result
--- NOTE | 2019-04-23 15:47 | PROVIDER DOCUMENTATION ---
This chart was entered by Karolina Jeronimo Scribe, acting as scribe for Juan J Fuentes MD. HPI-General Adult - General Chief Complaint: Withdrawals Stated Complaint: "WITHDRAWALS" / SICK TO STOMACH Time Seen by Provider: 04/23/19 09:38 Source: patient Allergies/Adverse Reactions: Patient Allergies Allergy/AdvReac Type Severity Reaction Status Date / Time morphine AdvReac FATIGUE Verified 04/23/19 10:24 nalbuphine HCl * AdvReac Unknown Verified 04/23/19 10:24 [From Nubain] Home Medications: Home Medication List Medication Instructions Recorded Confirmed Last Taken Type Insulin Glargine [Lantus Insulin] 18 unit SUBQ BID 30 Days #1 unit 01/13/19 02/06/19 02/05/19 Rx Diltiazem C.d. [Cardizem Cd] 300 mg PO DAILY #30 cap 02/09/19 Unknown Rx LISINOpril [Prinivil] 20 mg PO BID #60 tab 02/09/19 Unknown Rx Metoprolol [Lopressor] 25 mg PO BID #60 tab 02/09/19 Unknown Rx - History of Present Illness -Gen Adult Nature of Presenting Problems: Patient is a 64 year old female who presents with request for refill. States she is out of her Zanaflex. Denies pain. Reports she has been out of Zanaflex for 1 day. Location of Pain/Injury: reports: none Quality of Pain: reports: none Severity: reports: mild Onset/Duration: reports: 24 hours ago Timing: reports: still present Context/Activities at Onset: reports: light activity Associated Symptoms: reports: denies symptoms Similar Symptoms Previously?: Yes Recently seen or treated by another doctor?: No Review of Systems - Adult - REVIEW OF SYSTEMS - ADULT Constitutional: reports: no symptoms reported Eyes: reports: no symptoms reported Ears, Nose, Mouth & Throat: reports: no symptoms reported Cardiovascular: reports: no symptoms reported Respiratory: reports: no symptoms reported Gastrointestinal: reports: no symptoms reported Genitourinary: reports: no symptoms reported Musculoskeletal: reports: no symptoms reported Integumentary: reports: no symptoms reported Neurological: reports: no symptoms reported Psychiatric: reports: no symptoms reported Endocrine: reports: no symptoms reported Hematologic/Lymphatic: reports: no symptoms reported Allergic/Immunologic: reports: no symptoms reported All Other Systems: Reviewed and Negative Past History - Adult - PAST MEDICAL HISTORY-ADULT Review of Records: reports: Old Records Reviewed, Nursing Assessment Review, Medications Reviewed, Social history reviewed & non-contributory. Major Childhood Illnesses: reports: denies history Cardiovascular: reports: HTN Respiratory: reports: denies history Gastrointestinal: reports: cancer (colon), GERD Obstetrical/Gynecological: reports: denies history Genitourinary: reports: denies history Musculoskeletal: reports: chronic pain (sees pain clinic in [place]) Neurological: reports: CVA Psychiatric: reports: other (drug seeking behavior, drug dependence, Oxy codone/Zanaflex) Endocrine/Immune: reports: Diabetes Other Conditions: reports: denies history - PRIOR SURGERIES/PROCEDURES Surgical/Procedure History: reports: appendectomy, cholecystectomy, hysterectomy , BTL, , bowel surgery, back/neck - PRIOR HOSPITALIZATIONS Prior Hospitalizations: reports: for other non-related - IMMUNIZATION STATUS Childhood Immunizations: See Nurse Assessment Flu Vaccine: See Nurse Assessment - FAMILY HISTORY Family History: reviewed, not pertinent - SOCIAL HISTORY Smoking: denies Substance Use: denies Physical Exam-General - PHYSICAL EXAM-ADULT Initial Vital Signs Reviewed: Yes - CONSTITUTIONAL General Appearance: alert, no apparent distress. negative: lethargic - HEAD, EARS, NOSE, MOUTH & THROAT HENMT: normocephalic/atraumatic, other (dry mucous membranes). negative: angioedema - RESPIRATORY Respiratory: chest non-tender, lungs clear, normal breath sounds. negative: rhonchi, stridor - CARDIOVASCULAR Cardiovascular: normal peripheral pulses, tachycardia. negative: systolic murmur - GASTROINTESTINAL (ABDOMEN) Abdominal Exam: normal bowel sounds, non tender, soft. negative: rigid - MUSCULOSKELETAL Extremity: normal inspection. negative: deformity, erythema - SKIN Integumentary: normal color, normal turgor, warm/dry. negative: diaphoresis, pallor - NEUROLOGIC Neurologic: grossly normal. negative: aphasia, facial droop - PSYCHIATRIC Psych/Mental Status: normal mood/affect, oriented x 3. negative: anxious Progress - PLAN OF CARE/RESULTS Progress/Plan/Lab Results: Vital Signs - 8 hr 04/23/19 09:29 04/23/19 10:02 04/23/19 11:01 Temperature 98.0 F Pulse Rate 140 H 145 H 113 H Respiratory Rate 22 18 17 Blood Pressure 218/116 273/137 186/89 O2 Sat by Pulse Oximetry 93 L 100 100 04/23/19 11:19 04/23/19 11:28 04/23/19 11:30 Temperature Pulse Rate 117 H 117 H 118 H Respiratory Rate 8 L Blood Pressure 132/78 O2 Sat by Pulse Oximetry 98 99 100 04/23/19 11:31 04/23/19 11:45 04/23/19 11:46 Temperature Pulse Rate 115 H 111 H 111 H Respiratory Rate Blood Pressure 134/97 153/65 O2 Sat by Pulse Oximetry 99 97 97 04/23/19 12:00 04/23/19 12:01 04/23/19 12:15 Temperature Pulse Rate Respiratory Rate Blood Pressure 104/80 O2 Sat by Pulse Oximetry 97 97 97 04/23/19 12:30 Temperature Pulse Rate 127 H Respiratory Rate 22 Blood Pressure O2 Sat by Pulse Oximetry 99 Laboratory Results - last 24 hr 04/23/19 04/23/19 04/23/19 11:00 11:00 11:16 WBC 8.80 RBC 4.12 L Hgb 8.7 L Hct 29.7 L MCV 72.1 L MCH 21.1 L MCHC 29.3 L RDW Std Deviation 17.6 H Plt Count 484 H MPV 10.8 H Immature Gran % (Auto) 0.5 Neut % (Auto) 75.4 H Lymph % (Auto) 13.8 L [place] % (Auto) 5.7 Eos % (Auto) 4.0 Baso % (Auto) 0.6 Immature Gran # (Auto) 0.04 Neut # (Auto) 6.65 H Lymph # (Auto) 1.21 [place] # (Auto) 0.50 Eos # (Auto) 0.35 Baso # (Auto) 0.05 Segmented Neutrophils 82 H Lymphocytes 9 L Monocytes 4 Eosinophils 5 Sodium 146 H Potassium 2.8 L Chloride 104 Carbon Dioxide 24 L Anion Gap 18 BUN 15 Creatinine 0.8 Estimated GFR/1.73 m2 > 60 BUN/Creatinine Ratio 19 Glucose 118 H Calculated Osmolality 292 Calcium 9.8 Total Bilirubin 0.31 AST 15 ALT 14 Alkaline Phosphatase 142 H Total Protein 7.9 Albumin 4.1 Globulin 3.8 Albumin/Globulin Ratio 1.1 Urine Source CLEAN CATCH Urine Color STRAW Urine Turbidity CLEAR Urine pH 6.5 Ur Specific [place] 1.010 Urine Protein 30 A Ur Glucose (Stick) TRACE Ur Ketones (Stick) NEGATIVE Urine Blood NEGATIVE Urine Nitrite NEGATIVE Urine Bilirubin NEGATIVE Urobilinogen Dipstick NORMAL Urine Leukocytes NEGATIVE Urine WBC (Auto) <10 Urine RBC (Auto) <10 U Epithel Cells (Auto) <10 Urine Bacteria (Auto) NEGATIVE Orders Category Date Time Status CBC WITH ELECTRONIC DIFF [HEME] Stat Lab 04/23/19 11:00 Completed COMPREHENSIVE METABOLIC PANEL [CHEM] Stat Lab 04/23/19 11:00 Completed URINALYSIS W/POSS RFLX CULT [URINALYSIS] Stat Lab 04/23/19 11:16 Completed 0.9% Sodium Chloride Inj [Ns] 1,000 ml Med 04/23/19 09:42 Discontinued IV 999 mls/hr Potassium Chloride E.r. [Klor-Con] Med 04/23/19 12:35 Once 40 meq PO NOW ONE Tizanidine [Zanaflex] Med 04/23/19 09:42 Discontinued 4 mg PO NOW ONE EKG [EKG] Stat Ther 04/23/19 09:43 Draft Result Diagrams: 04/23/19 11:00 04/23/19 11:00 - EKG 1 Time of EKG reading by physician:: 09:46 EKG Read and Signed by:: Juan J Fuentes EKG Interpretation (*Must complete 3 of following elements*): Abnormal Rate: 143 Rhythm: sinus tachycardia [place]: normal IA Interval: normal Comments: nonspecific ST and T wave abnormality 2 Time of EKG reading by physician:: 13:28 EKG Read and Signed by:: Juan J Fuentes EKG Interpretation (*Must complete 3 of following elements*): Abnormal Rate: 147 Rhythm: sinus tachycardia [place]: normal IA Interval: normal Comments: marked ST abnormality, possible lateral subendocardial injury - CONSULTS/PCP/HOSPITALIST Notification #1 *Consult/PCP/Hospitalist*: YOGI Larry for Hospitalist Time Discussed: 15:35 Reason/Comments: Dr. Fuentes consulted with Kendy about patient. Consult Disposition: Will see in ED, Admit Departure - Departure Date of Disposition Decision: 04/23/19 Time of Disposition Decision: 15:36 DIAGNOSIS: Paroxysmal A-fib, Tachycardia, Anemia, Hypokalemia, Withdrawal complaint Disposition: ADMITTED INPATIENT 09 Certified Medical Emergency: Emergent Condition: Fair Referrals and Follow-Ups: None,PCP [Primary Care Provider] - - Critical Care Note This patient required my direct & personal management of CC.: Yes Total Time (mins): 36 Critical Care Statement: This patient required my direct personal management to treat or rule out processes, the absence of which, could potentiallly result in sudden, clinically significant life or limb threatening deterioration. Attestation - Physician/ NAHUM Attestation Patient care was provided by Advanced Practice Provider:: No The physician spent face to face time with patient:: Yes Advanced Practice Provider documentation review:: Supervising physician onsite and consulted in the evaluation and care of this patient. The physician did have a face to face encounter with the patient. This chart was documented by the indicated scribe, (Karolina Jeronimo Scribe) and accurately reflects the services I performed and decisions made by me, Juan J Fuentes MD, as attested by the provider's signature.
[2019-04-23] MEDS ORDERED: NS 1,000 ML IV SCH ×2 (16:15→17:49)
[2019-04-23] MEDS ORDERED: TORADOL IV ONE (17:52)
[2019-04-23] MEDS ORDERED: SODIUM CHLORIDE 0.9% INJ SCH (18:00)
[2019-04-23] MEDS ORDERED: ATIVAN IV PRN (18:07)
[2019-04-23] MEDS ORDERED: MAGNESIUM SULFATE 2 GM/S.W.I. 2 GM/50 ML IVPB IV ONE (18:09)
[2019-04-23 18:21] LABS: UR AMPHETAMINES QUAL NONE DETECTED (NONE DETECT); UR BARBITUATES QUAL NONE DETECTED (NONE DETECT); UR BENZODIAZEPIN QUAL NONE DETECTED (NONE DETECT); UR CANNABINOIDS QUAL NONE DETECTED (NONE DETECT); UR COCAINE QUAL NONE DETECTED (NONE DETECT); UR METHADONE QUAL NONE DETECTED (NONE DETECT); UR OPIATES QUAL NONE DETECTED (NONE DETECT); UR OXYCODONE QUAL NONE DETECTED (NONE DETECT); UR PCP QUAL NONE DETECTED (NONE DETECT)
--- NOTE | 2019-04-23 19:38 | Diag Imaging Result Doc PS360 ---
EXAM: CHEST-PORTABLE INDICATION: SOB TECHNIQUE: One view COMPARISON: 02/06/2019 FINDINGS: There appears to be a small calcified granuloma at the lateral right lung base. The lungs are grossly clear. There is no discrete pleural fluid collection or pneumothorax. The cardiomediastinal silhouette and central vasculature are grossly unremarkable. IMPRESSION: No evidence of acute pathology by plain radiograph. Electronically signed by Austen Hoffman 04/23/2019 7:36 PM
[2019-04-23] MEDS ORDERED: LANOXIN IV ONE (20:42)
[2019-04-23] MEDS: ZANAFLEX PO SCH (20:49)
[2019-04-23] MEDS: PROTONIX IV SCH (20:50)
[2019-04-23] MEDS: POTASSIUM CHLORIDE 20 MEQ in NS 1,000 ML IV SCH (20:50)
[2019-04-23] MEDS: HUMALOG SUBQ SCH (21:00)
[2019-04-23] MEDS: LOPRESSOR IV PRN (21:27)
--- NOTE | 2019-04-23 22:46 | HISTORY AND PHYSICAL ---
CHIEF COMPLAINT: Severe back pain, nausea and vomiting for the past 2 or 3 days. HISTORY OF PRESENT ILLNESS: A 64-year-old female with a past medical history of frequent admissions for mental status changes and Zanaflex withdrawals. 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 She is not on blood thinners, though. Diabetes, GERD, hypertension. She presented to the emergency department with a history of 2 or 3 days having back pain, nausea and vomiting. The is at the bedside. As per the , she started having back pain, nausea vomiting 2 or 3 days ago and this always happens when she does not take the Zanaflex. She has been having nausea and vomiting and back pain. As per the , this happened 2 months ago as well. She seems to be dehydrated. She is answering my questions though. Her kidneys are fine. No acute kidney injury. Her heart rate, though, is sinus but tachycardic mostly in the 160s. I asked for cardiac enzymes as well. There is an imbalance of her electrolytes including low potassium and low magnesium, which I have replaced. Potassium, I will put it in the IV fluids and magnesium I will give to her as well through her IV. Again, as per the patient and the at the bedside, this always happens when she stops taking her Zanaflex. I reviewed the discharge medication for last time and she was not on Zanaflex at that moment, but she has a wound in the middle of her back that is completely healed and is old for previous surgery. Since she vomiting, she was not able to say who was providing the Zanaflex though, but since she is apparently allergic to morphine, I will restart this treatment p.o.. Also, she is on Lopressor and diltiazem CD at home. I will continue with Lopressor IV every 6 hours to try to control her heart rhythm. I do believe her pain is causing the heart rate to go up and the nausea and vomiting as well. She denies diarrhea, constipation, headache, chest pain or shortness of breath. She does have back pain. She will be admitted to the PVC unit. REVIEW OF SYSTEMS: All the 14 points of review of systems were reviewed. All of them negative except as per HPI. 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 PAST SURGICAL HISTORY: x3, hysterectomy, lumbar surgery x3, cholecystectomy, colon resection secondary to colon cancer. 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 FAMILY HISTORY: Unable to obtain at this moment. ALLERGIES: Morphine and Nubain. HOME MEDICATIONS: As per the patient and the , she takes Zanaflex 4 mg every 8 hours and also she is taking the medications that she was discharged from here last time, diltiazem CD 300 mg p.o. daily, Lantus 18 units subcu b.i.d., Lopressor 25 mg p.o. b.i.d., and lisinopril 20 mg p.o. b.i.d. PHYSICAL EXAMINATION: VITAL SIGNS: Temperature 98 degrees, pulse 163, respiratory rate 19, blood pressure 164/45, oxygen saturation 95% on room air. HEENT: Head normocephalic, no trauma. Poor dentition. NECK: Supple. No JVD. No masses. Central trachea. CHEST: Clear to auscultation. No wheezing. No rales. ABDOMEN: Soft. Some tenderness to palpation at the level of the periumbilical area and it is really painful to palpation on her back, lower area. EXTREMITIES: No edema, no clubbing, no cyanosis. NEUROLOGICAL: The patient is awake, alert. She is answering some of my questions, but she has been vomiting. LABORATORY: WBC 8.8, hemoglobin 8.7, hematocrit 29.7, platelets 484,000. Sodium 146, potassium 2.8, chloride 104, bicarbonate 24, BUN 15, creatinine 0.8, glucose 118, calcium 9.8, magnesium 1.3, AST 15, ALT 14, alkaline phosphatase 142. ASSESSMENT AND PLAN: 1. Severe back pain with nausea, vomiting, possible for withdrawal of Zanaflex, which she has been reported before and she has been having multiple admissions for this. I will put this patient on Ativan, but as per the she has been taking this for her back pain and they really want to continue on this. I will start this back on this patient and I will try to find out, once the patient is better, who is providing this medication for her, because apparently she really needs that. She is not using narcotics at home. 2. Tachycardia, sinus, probably due to her pain. I will give her some metoprolol IV every 6 hours as needed for the heart rate and also I will give her some fluids since she seems to be really dehydrated. 3. Fluid depletion, as above. I will continue with IV fluids. 4. Electrolyte abnormality including hypokalemia, hypomagnesemia I will replace both. 5. Hypertension. Like I said, I put her on intravenous Lopressor every 6 hours for now. Her blood pressure has been elevated mostly in the 160s and 200s. 6. History of atrial fibrillation, she is tachycardic right now, sinus rhythm. I will continue with same management. She has been placed initially on diltiazem drip, but I will stop it. 7. Type 2 diabetes. For now, we will continue with sliding scale insulin and pattern blood sugar. cc: Victorino Jordan MD
[2019-04-24] MEDS: ZANAFLEX PO SCH ×4 (01:36→17:29)
[2019-04-24] MEDS: POTASSIUM CHLORIDE 20 MEQ in NS 1,000 ML IV SCH ×5 (03:33→23:26)
[2019-04-24] MEDS: HUMALOG SUBQ SCH ×4 (06:13→21:20)
[2019-04-24] MEDS ORDERED: PRILOSEC PO SCH (07:00)
[2019-04-24 07:09] LABS: URINE SOURCE CLEAN CATCH
[2019-04-24 07:18] LABS: BASO# 0.07 X1000 (0.0-0.2); BASO% 0.8 % (0.0-0.8); EOS% 1.1 % (0.0-10.0); HEMATOCRIT 27.3 % (37.0-47.0); HEMOGLOBIN 7.9 g/dL (12.0-16.0); IMM GRAN# 0.07 X1000 (0.0-0.04); IMM GRAN% 0.8 % (0.0-0.5); LYMPH# 2.26 X1000 (1.2-3.4); LYMPH% 24.5 % (20.5-51.1); MCH 21.2 PG (27-31); MCHC 28.9 g/dL (33-37); MCV 73.2 FL (81-99); MONO% 5.4 % (1.7-9.3); MPV 11.2 FL (7.4-10.4); NEUT# 6.22 X1000 (1.4-6.5); NEUT% 67.4 % (42.2-75.2); PLT 496 X1000 (130-400); RBC 3.73 XMIL (4.2-5.4); WBC 9.22 X1000 (4.8-10.8)
[2019-04-24 07:22] LABS: BILIRUBIN URINE NEGATIVE (NEGATIVE); BLOOD URINE NEGATIVE (NEGATIVE); COLOR YELLOW; GLUCOSE URINE NEGATIVE (NEGATIVE); KETONE URINE NEGATIVE (NEGATIVE); LEUKOCYTES URINE NEGATIVE (NEGATIVE); NITRITE URINE NEGATIVE (NEGATIVE); PROTEIN URINE TRACE mg/dL (NEGATIVE); SP GRAVITY URINE 1.015; TURBIDITY URINE CLEAR (CLEAR); UROBILINOGEN URINE NORMAL (NORMAL)
[2019-04-24 07:24] LABS: UR EPITHELIAL CELLS <10 /HPF (<10); URINE BACTERIA NEGATIVE /HPF; URINE RBC <10 /HPF (<10); URINE WBC <10 /HPF (<10)
[2019-04-24 07:27] LABS: ALB/GLOB RATIO 1.3; CALCIUM 8.8 mg/dL (8.8-10.2); CREATININE 1.1 mg/dL (0.5-0.9); TOTAL BILIRUBIN 0.52 mg/dL (0.20-1.00); TOTAL PROTEIN 7.1 g/dL (6.3-8.3)
[2019-04-24 07:43] LABS: MAGNESIUM 1.9 mg/dL (1.5-2.7); PHOSPHORUS 2.5 mg/dL (2.7-4.5)
[2019-04-24 07:57] LABS: FERRITIN 17 ng/mL (13-150)
--- NOTE | 2019-04-24 08:19 | EKG Report ---
Test Performed on : 04/23/2019 6:27:51 PM Test Reason : ED. NO EKG ORDER FOR MUSE Blood Pressure : / mmHG Vent. Rate : 146 BPM Atrial Rate : 146 BPM P-R Int : 128 ms QRS Dur : 084 ms QT Int : 266 ms P-R-T Axes : 051 006 102 degrees QTc Int : 414 ms Sinus tachycardia. Nonspecific ST and T wave abnormality Abnormal ECG When compared with ECG of 23-APR-2019 13:28, (Unconfirmed) No significant change was found Unconfirmed Result
[2019-04-24] MEDS: HALDOL IM PRN ×3 (09:03→21:20)
[2019-04-24] MEDS: LOPRESSOR IV PRN ×2 (09:03→17:34)
[2019-04-24] MEDS ORDERED: ATIVAN IV PRN (09:24)
[2019-04-24] MEDS ORDERED: APRESOLINE IV PRN (09:25)
[2019-04-24] MEDS: CARDIZEM CD PO SCH (09:34)
[2019-04-24] MEDS ORDERED: POTASSIUM PHOSPHATE 15 MMOL in NS 250 ML IV ONE (09:36)
--- NOTE | 2019-04-24 10:05 | PROGRESS NOTE ---
DATE: 04/24/2019 SUBJECTIVE: Patient is lying in bed. She is still complaining of back pain. She is oriented though, but she is having some facial twitching today that I did not notice yesterday. She is answering my questions. She is asking for Zanaflex and Ativan. As per the patient, this is happening because she stopped taking her Zanaflex a few days ago. I have requested an evaluation by the neurology department to see what they think about it. OBJECTIVE: Vital Signs: Temperature 98.6 degrees, pulse 130, respiratory rate 15, blood pressure 209/161, oxygen saturation 100% on 2 L of nasal cannula. HEENT: Head normocephalic. No trauma. Poor dentition. Neck: Supple. No JVD. Central trachea. Chest: Clear to auscultation. No wheezing. No rales. Abdomen: Soft. Some tenderness to palpation at the level of the epigastric and periumbilical area. Also, she has some pain to palpation at the level of the lower back. Extremities: No edema, no clubbing, no cyanosis. Neurological Examination: This patient is awake. She is alert. She is answering to most of my questions but she has been having some facial twitching. Laboratory: WBC 9.2, hemoglobin 7.9, hematocrit 27.3, platelets 496,000. Sodium 143, potassium 3, chloride 104, bicarbonate 25, BUN 15, creatinine 1.1, glucose 132, calcium 8.8, phosphorus 2.5, magnesium 1.9. ASSESSMENT AND PLAN: 1. Severe back pain, nausea, and vomiting, possibly related to Zanaflex withdrawal. I talked to the patient and the family during admission yesterday and apparently, she has been having multiple admissions related to this. As per the , who was at the bedside, and the patient, she always has these kinds of problems when she stops taking her Zanaflex. She takes Zanaflex due to her back pain. She is not taking any narcotics due to allergic reactions. 2. Bradycardia. This is sinus and probably due to her pain. I have restarted this patient on diltiazem by mouth and also, we will continue with metoprolol intravenously every 6 hours as needed to decrease the heart rate. She has been getting also fluids since she was really dehydrated. She seems to be better. 3. Fluid depletion, as above. Continue with intravenous fluids. 4. Electrolyte abnormality including hypokalemia and hypophosphatemia. I will replace both. 5. Hypomagnesemia, resolved. 6. Hypertension, probably related to her pain and anxiety/withdrawal symptoms. I will give her hydralazine as needed. 7. Mild encephalopathy with some face twitching. I have requested an evaluation by the neurology department. As per the patient, again, this always happens when she stops her medications for the back pain, Zanaflex. 8. Type 2 diabetes. Continue with the same management for now. CRITICAL CARE TIME: 35 minutes. cc: Victorino Jordan MD
--- NOTE | 2019-04-24 16:43 | CARDIOLOGY CONSULTATION ---
DATE: 04/24/2019 CHIEF COMPLAINT: Chief complaint on presentation was apparently severe back pain, nausea, vomiting. Patient actually only endorses coming in secondary to Zanaflex withdrawals. HISTORY OF PRESENT ILLNESS: Ms. Juarez is a 64-year-old female with a history of posterior area encephalomalacia with previous CVA. We are consulted for possible atrial fibrillation. The patient is not able to provide any history, but it seems like she has been having issues with back pain, nausea, vomiting for several days, and has not been able to keep down much oral fluids. Patient is not currently in any sort of pain. She is not having any complaints of heart racing. She is a very difficult historian. PAST MEDICAL HISTORY: Significant for: 1. Hypertension. 2. Diabetes. 3. Reflux disease. 4. She has a chart that has many EKGs stored in it. I have reviewed all her EKGs back to 09/04/2015. I do not think she has convincing evidence of atrial fibrillation on these studies. There appears to be many with sinus tachycardia with PACs. 5. Colon cancer in 2000 with previous colon resection. 6. Previous CVA. 7. Frequent hospital admissions for Zanaflex withdrawals. 8. Chronic pain. SOCIAL HISTORY: Unable to be obtained secondary to the patient being unable to provide accurate history. FAMILY HISTORY/REVIEW OF SYSTEMS: Unable to be obtained secondary to the patient not being able to provide accurate history. PHYSICAL EXAMINATION: Vital Signs: She is afebrile this hospitalization. Her heart rates have been widely fluctuant anywhere from the 80s to the 160s. She does have 1 documented at 6:17 yesterday of 225. I do not have any telemetry abnormalities at that time recorded. Her blood pressure is 209/161 most recently, previously it was 128/66. General: She is in no acute distress. She is lying in bed. She does not provide any real history. HEENT: Oropharynx is moist. She has poor dentition. Her eye examination shows pink conjunctivae, white sclerae. Neck: Examination shows no obvious thyromegaly or thyroid tenderness. Cardiovascular: She is in a tachycardic rhythm at the time of my examination that appears to be consistent with sinus tach. She has no lower extremity edema. She has no obvious murmurs. Chest: Exam is clear bilaterally. She has no increased work of breathing. Abdomen: Soft, nontender. She has no obvious organomegaly. Skin exam: Warm and dry throughout without any rashes. Neurological: She seems to be able to move all extremities well. She is not very cooperative with the examination. PERTINENT DATA: She had an echocardiogram in December of this year that showed an ejection fraction of at least 65%, somewhat difficult study. She had mild left ventricular hypertrophy suggesting a small muscular VSD. She had a chest x-ray demonstrating no evidence of acute pathology. Lab data shows a white count of 9.2, her hematocrit is 27, her platelet count is 496. Her sodium is 143, potassium on admission was 2.8 with a BUN and creatinine of 15 and 1.1 today. Her magnesium level is 1.9. Her phosphorus is 2.5. Her cardiac enzymes are negative. Her TSH on presentation was 2.21, free T4 1.6. Urinalysis was reviewed. UDS was negative. ASSESSMENT: Ms. Juarez is a 64-year-old female, who presents with nausea, vomiting. PLAN: She has electrolyte abnormalities in the form of hypomagnesemia and hypokalemia on presentation, as well as a low phosphorus level today. Her EKGs this hospitalization do not seem to demonstrate any convincing evidence of atrial fibrillation. All of these EKGs were reviewed by me, seem to demonstrate sinus tachycardia. In review of her previous EKGs, I do not think there is convincing evidence to anticoagulate the patient as I do not feel that she has clear diagnostic data suggestive of atrial fibrillation. She has recently normal ejection fractions by echocardiogram. I would recommend repletion of her electrolytes, as already being done. I will discontinue the troponins given that she has had a number of those already being unremarkable since presentation. Please contact us if we can be of further assistance with this patient. cc: Gregorio Mason MD
--- NOTE | 2019-04-24 17:24 | CONSULTATION ---
DATE OF CONSULTATION: 04/24/2019 HISTORY OF PRESENT ILLNESS: Ms. Juarez is 64 years old and she was admitted yesterday with reported back pain, nausea and vomiting. The admission history indicates considered presenting symptoms to be consistent with her missing Zanaflex dose. There is reported to be history of similar problems following cessation of Zanaflex. Her history to me today is that she ran out of Zanaflex a few days ago. She told me that the prescription is provided by someone in [place] and she could not tell me the prescriber's name, name of the clinic or general vicinity of the clinic. She told me she filled it at "[facility]." There is not a business known as [facility], but there is one pharmacy in [place], and I phoned [facility] in [place]. Report is she filled a prescription for tizanidine 4 mg, #16 approximately 20 hours before she presented to the hospital with report she had been out of tizanidine for a few days. The prescriber was [facility] [place]. This is the only prescription filled at that pharmacy. Pharmacy does not have record of filling tizanidine prescriptions or other prescriptions for this patient at any time in recent or remote past. Ms. Juarez told me that she has "nerve medicine" but she cannot tell me the name of that, when she last had a dose or who prescribed it. She told me that Lantus is her only other regular medication now. There is a past neurologic history with uncertain details. I saw her in December of this year, about 3 months ago. There was imaging evidence then of diffuse posterior encephalomalacia involving occipital lobes and cerebellar hemispheres bilaterally. The appearance was of an old problem. Her history was inconsistent. Eventually I spoke with and there may have been history of head injury, but details were never certain. MRI was considered, but we do not have report of MRI in this system. Her followup noncontrast CT of the head 02/06/2019 showed no changes compared to 01/08/2019 scan. We do not have brain imaging reported this admission. On exam a few months ago, she had inconsistent left hemianopia and no other definite focal findings. She presented with an altered mental state and gradually recovered. There may have been some transient abnormal movement consistent with either asterixis or myoclonus, but that did not persist. Eventually, I believe the syndrome was attributed to medication error, possibly tizanidine intoxication followed by withdrawal. PHYSICAL EXAMINATION: On exam now, Ms. Juarez is on her left side, quickly alert as I entered the room and called her name. She responded appropriately with dysarthric speech. She followed simple commands consistently. She demonstrated good power in the limbs. She did well on finger- to-nose testing bilaterally. She consistently counted fingers in the right visual field better than the left, but I do not believe she has complete left hemianopia. There is good lateral eye movement. Facial motility is symmetric. Tongue is midline. Head and neck are unremarkable. There is no meningismus. Plantar response is silent bilaterally. I did not test her gait. Vital sign records show she has been afebrile. Heart rate was initially 140s to 160s, recently 90s to 130s. Systolic blood pressures were initially 210s to 270s, recently 120s to 200s. LABORATORY DATA: Urine drug screen was negative on admission. Lab showed anemia, mildly elevated blood sugars, phosphorus 2.5, magnesium initially 1.3. Alkaline phosphatase was initially 142 and then 125. She has had similar alkaline phosphatase levels elevated chronically. Other liver enzymes were normal on this admission. IMPRESSION AND PLAN: Global encephalopathy, uncertain etiology. This still seems most likely medication-related. Her presentation with tachycardia and elevated blood pressure are more suggestive of withdrawal than intoxication with tizanidine. Clearly, I do not have her medication history sorted out completely. She has been admitted in the past with similar presentation and she recovered spontaneously over a few days. I expect that will be the case this time. I would continue support, continue trying to get more accurate history regarding her medications, and I do not think we need to do anything further from a Neurology standpoint. If there is question of new neurologic deficit, we can repeat brain imaging, but I do not think that would exchange underwriting consultant today. If she has periods of altered awareness or altered consciousness, EEG might be helpful, but current history and appearance do not suggest seizure. I do not see evidence of central nervous system infection. No urgent suggestion from a Neurology standpoint. Thanks for asking us to see Ms. Juarez again. cc: MD ROSALIND Edmondson III
[2019-04-24] MEDS: PROTONIX IV SCH (17:33)
[2019-04-25] MEDS: ZANAFLEX PO SCH ×3 (01:05→08:59)
[2019-04-25] MEDS: HUMALOG SUBQ SCH ×2 (06:15→11:18)
[2019-04-25 06:29] LABS: ALB/GLOB RATIO 1.2; BASO# 0.03 X1000 (0.0-0.2); BASO% 0.4 % (0.0-0.8); CALCIUM 8.1 mg/dL (8.8-10.2); CREATININE 1.1 mg/dL (0.5-0.9); EOS# 0.36 X1000 (0.0-0.7); EOS% 4.8 % (0.0-10.0); HEMOGLOBIN 6.3 g/dL (12.0-16.0); IMM GRAN# 0.08 X1000 (0.0-0.04); IMM GRAN% 1.1 % (0.0-0.5); LYMPH# 1.66 X1000 (1.2-3.4); LYMPH% 22.3 % (20.5-51.1); MAGNESIUM 1.5 mg/dL (1.5-2.7); MCH 21.2 PG (27-31); MCHC 28.6 g/dL (33-37); MCV 74.1 FL (81-99); MONO# 0.41 X1000 (0.11-0.59); MONO% 5.5 % (1.7-9.3); MPV 11.5 FL (7.4-10.4); NEUT# 4.91 X1000 (1.4-6.5); NEUT% 65.9 % (42.2-75.2); PHOSPHORUS 2.6 mg/dL (2.7-4.5); PLT 387 X1000 (130-400); POTASSIUM 3.4 mmol/L (3.5-5.1); RBC 2.97 XMIL (4.2-5.4); RDW 17.9 % (11.5-14.5); TOTAL BILIRUBIN 0.37 mg/dL (0.20-1.00); TOTAL PROTEIN 5.6 g/dL (6.3-8.3); WBC 7.45 X1000 (4.8-10.8)
[2019-04-25] MEDS: CARDIZEM CD PO SCH (08:07)
[2019-04-25] MEDS: POTASSIUM CHLORIDE 20 MEQ in NS 1,000 ML IV SCH (08:17)
[2019-04-25] MEDS ORDERED: NS 500 ML IV ONE (08:46)
[2019-04-25] MEDS ORDERED: POTASSIUM PHOSPHATE 15 MMOL in NS 250 ML IV ONE (08:47)
[2019-04-25] MEDS ORDERED: MAGNESIUM SULFATE 2 GM/S.W.I. 2 GM/50 ML IVPB IV ONE (08:47)
--- NOTE | 2019-04-25 13:35 | DISCHARGE SUMMARY ---
ADMISSION DATE: 04/23/2019 DISCHARGE DATE: 04/25/2019 ADMITTING DIAGNOSES: 1. Severe back pain with nausea, vomiting, possible withdrawal of Zanaflex. 2. Tachycardia. 3. Fluid depletion. 4. Electrolyte abnormalities including hypokalemia and hypomagnesemia, resolved. 5. Hypertension. 6. History of atrial fibrillation. 7. Diabetes mellitus type 2. DISCHARGE DIAGNOSES: 1. Severe back pain. This is chronic. The patient states that it is not as severe as on admission. 2. Nausea and vomiting, resolved. 3. Bradycardia, 2 episodes in ER before admission, resolved. 4. Fluid depletion, resolved after intravenous hydration. 5. Electrolyte abnormality including hypokalemia and hypophosphatemia, resolved. 6. Hypomagnesemia. 7. Hypertension. 8. Diabetes mellitus type 2. 9. Mild encephalopathy with some face twitching. 10. Tachycardia - resolved. CONSULTATIONS: 1. Dr. Gregorio Mason, cardiology. 2. Dr. Purnima Zarate, neurology. DIAGNOSTICS: Chest x-ray revealed no evidence of acute pathology. HOSPITAL COURSE: Ms. Juarez presented to the emergency room with severe back pain, nausea, and vomiting for 2 or 3 days. It was felt that she was withdrawing from Zanaflex as she has done this many times in the past. She was tachycardic for which she received IV hydration. We continued her Lopressor and diltiazem as at home, as well as added Lopressor IV q.6 hours. Heart rates have waxed and waned since, between the 80s and primarily 120s. EKGs revealed sinus tachycardia. She was evaluated by cardiology who felt that the EKGs did not demonstrate any convincing evidence of atrial fibrillation. They all demonstrated sinus tachycardia. Electrolytes were repleted. She did have 2 episodes of bradycardia while in the ER that was felt to be due to pain. These have not recurred. Blood sugars were managed with fingerstick blood sugars and sliding scale insulin, and they did range from the 120s to the 180s. She was evaluated by Dr. Purnima Zarate in neurology, who felt that her symptoms were suggestive of withdrawal from Zanaflex. He recommended that we continue with her current treatment. On the day of discharge, she denied nausea or vomiting. Eating breakfast and lunch 75-100%. Today, Ms. Juarez is awake and alert, and thankfully ready for discharge. DISCHARGE VITAL SIGNS: Blood pressure is 102/59, with a heart rate of 90, respirations are 18, temperature is 97.2 degrees, with room air saturations 100%. DISCHARGE PHYSICAL EXAMINATION: Cardiovascular: Regular rate and rhythm. S1 and S2 appreciated. She has no lower extremity edema. Peripheral pulses are palpable x4 extremities. Calves are nontender. Pulmonary: Breath sounds are clear. No increased work of breathing noted. Chest rises and falls symmetrically with respirations. Chest wall is nontender to palpation. Gastrointestinal: Abdomen is soft, nontender, nondistended, with bowel sounds in all 4 quadrants. Neurologic: She is alert and oriented x3. DISCHARGE MEDICATIONS: 1. Zanaflex 4 mg p.o. t.i.d. 2. Lisinopril 20 mg p.o. daily. 3. Lantus insulin 18 units subcutaneous b.i.d. 4. Diltiazem CD 300 mg p.o. daily. FOLLOWUP: 1. Dr. Yang Bateman regarding anemia. She needs to call to make an appointment. 2. Dr. Alvarado to rule out GI blood loss. Today, Ms. Juarez had a hemoglobin of 6.3, hematocrit of 22 for which she is received a unit of packed cells before discharge She is being discharged home in stable condition with family members. This is a greater than 30 minute discharge. Dictated by YOGI Mason for Victorino Jordan MD cc: YOGI Mason MD Naveen T. Lobo, MD Khurshid Yousuf, MD MTDD
[2019-04-25 13:42] VITALS: BP 113/63
== END 2019-04-25 14:11 | disposition home health service (06) ==
LOC: ED 09:21 → EDIPHOLD 16:27 → 2N 20:55
PROVIDERS: ATTEND Internal Medicine

== ENCOUNTER 2019-08-16 04:05 | Inpatient (IN) ==
[2019-08-16] MEDS ORDERED: ASPIRIN PO ONE (04:30)
[2019-08-16] MEDS ORDERED: ASPIRIN PR ONE (04:30)
--- NOTE | 2019-08-16 04:42 | EKG Report ---
Test Performed on : 08/16/2019 04:14:43 AM Test Reason : CP Blood Pressure : / mmHG Vent. Rate : 055 BPM Atrial Rate : 055 BPM P-R Int : 166 ms QRS Dur : 090 ms QT Int : 502 ms P-R-T Axes : 018 -01 062 degrees QTc Int : 480 ms Sinus bradycardia. Voltage criteria for left ventricular hypertrophy Abnormal ECG When compared with ECG of 23-APR-2019 18:27, (Unconfirmed) Vent. rate has decreased BY [address] no longer depressed in Lateral leads Unconfirmed Result
--- NOTE | 2019-08-16 04:58 | PROVIDER DOCUMENTATION ---
HPI-Chest Pain - General Chief Complaint: Chest Pain Stated Complaint: CHEST PAIN/HEART HISTORY Time Seen by Provider: 08/16/19 04:55 Source: patient Allergies/Adverse Reactions: Patient Allergies Allergy/AdvReac Type Severity Reaction Status Date / Time morphine AdvReac FATIGUE Verified 08/16/19 05:47 nalbuphine HCl * AdvReac PASS OUT Verified 08/16/19 05:47 [From Nubain] Home Medications: Home Medication List Medication Instructions Recorded Confirmed Last Taken Type Diltiazem C.d. [Cardizem Cd] 300 mg PO DAILY #30 cap 02/09/19 05/18/19 04/21/19 Rx Insulin Glargine [Lantus Insulin] 18 unit SUBQ BID #0 04/25/19 05/18/19 04/22/19 21:00 Rx LISINOpril [Prinivil] 20 mg PO DAILY #60 tab 05/18/19 Unknown Rx Tizanidine HCl [Zanaflex] 4 mg PO TID PRN #30 tab 05/18/19 Unknown Rx - History of Present Illness-CP Nature of Presenting Problem: Patient is a 64 yo female with history of chronic back pain who c/o back spasms and anxiety since running out of zanaflex a couple of days ago, couldn't sleep last night, and developed midsternal chest pain 30 minutes [employer] while trying to sleep. States dropped her off in the ER. Requests something for pain and a refill of zanaflex Location: reports: substernal Chest Pain Radiation: reports: no radiation Quality of Pain: reports: sharp Severity in ED: moderate Onset/Duration: 1/2 hour ago Timing: still present Context/Activities at Onset: reports: rest Modifying Factors: improves with: nothing Associated Symptoms: reports: back pain, shortness of breath, weakness Nitro Today/Relief: no nitro taken today Aspirin Treatment Today: no aspirin today Prior Chest Pain/Cardiac Workup: reports: non-cardiac Similar Symptoms Previously?: Yes (when runs out of zanaflex) Recently Seen Here or By Another Healthcare Provider: No Review of Systems - Adult - REVIEW OF SYSTEMS - ADULT Constitutional: reports: see HPI, fatique, night sweats. denies: chills, fever Eyes: reports: no symptoms reported Ears, Nose, Mouth & Throat: reports: no symptoms reported Cardiovascular: reports: see HPI, chest pain, poor circulation. denies: edema, heart murmur, irregular heart rate, orthopnea, palpitations, PND, syncope Respiratory: reports: see HPI, chronic cough, shortness of breath Gastrointestinal: reports: no symptoms reported Genitourinary: reports: no symptoms reported Musculoskeletal: reports: see HPI, back pain, muscle aches, muscle weakness. denies: bone pain, frequent leg cramps, joint pain, joint swelling, neck pain Integumentary: reports: no symptoms reported Neurological: reports: no symptoms reported Psychiatric: reports: no symptoms reported Endocrine: reports: no symptoms reported Hematologic/Lymphatic: reports: no symptoms reported Allergic/Immunologic: reports: no symptoms reported All Other Systems: Reviewed and Negative Past History - Adult - PAST MEDICAL HISTORY-ADULT Review of Records: reports: Old Records Reviewed (including visist for zanaflex withdrawl and narcotic dependence), Nursing Assessment Review, Medications Re viewed, Social history reviewed & non-contributory. Major Childhood Illnesses: reports: denies history Cardiovascular: reports: HTN Respiratory: reports: denies history Gastrointestinal: reports: cancer (colon), GERD Obstetrical/Gynecological: reports: denies history Genitourinary: reports: denies history Musculoskeletal: reports: chronic pain (sees pain clinic in [place]) Neurological: reports: denies history Psychiatric: reports: other (drug seeking behavior, drug dependence, Oxycodone/Zanaflex) Endocrine/Immune: reports: Diabetes Other Conditions: reports: denies history - PRIOR SURGERIES/PROCEDURES Surgical/Procedure History: reports: appendectomy, cholecystectomy, hysterectomy , BTL, , bowel surgery, back/neck - PRIOR HOSPITALIZATIONS Prior Hospitalizations: reports: for other non-related - IMMUNIZATION STATUS Childhood Immunizations: See Nurse Assessment Flu Vaccine: See Nurse Assessment - FAMILY HISTORY Family History: reviewed, not pertinent - SOCIAL HISTORY Smoking: non-smoker Substance Use: none/never Alcohol Use Frequency: never Living Situation: family Physical Exam-General - PHYSICAL EXAM-ADULT Initial Vital Signs Reviewed: Yes - CONSTITUTIONAL General Appearance: alert, mild distress, anxious - EYES Eyes: PERRL/EOMI, pink conjunctivae - HEAD, EARS, NOSE, MOUTH & THROAT HENMT: normocephalic/atraumatic, other (twitching movements or right face). negative: moist mucous membranes (dry), hearing deficit - NECK Neck: non-tender, full range of motion, supple, normal inspection. negative: meningismus - RESPIRATORY Respiratory: chest non-tender, lungs clear, normal breath sounds, no pleuratic chest pain, no respiratory distress, no accessory muscle use - CARDIOVASCULAR Cardiovascular: normal peripheral pulses, regular rate, rhythm, no edema, no gallop, no JVD, no murmur - GASTROINTESTINAL (ABDOMEN) Abdominal Exam: normal bowel sounds, non tender, soft, no organomegaly, no pulsatile mass - LYMPHATIC Lymphatic: no adenopathy - MUSCULOSKELETAL Back Exam: no CVA tenderness, decreased range of motion, muscle spasm, vertebral tenderness (entire lumbar spine, without step off or deformity), other (negative SLR) Extremity: normal range of motion, non-tender, normal gait, normal inspection, no pedal edema, no calf tenderness, normal capillary refill, other (onychomycosis of toenails) Peripheral Pulses: dorsalis-pedis (R): 2+, dorsalis-pedis (L): 2+ DTR: bicep (R): 2+, bicep (L): 2+, knee (R): 2+, knee (L): 2+ - SKIN Integumentary: normal color, normal turgor, warm/dry - NEUROLOGIC Neurologic: pot runner II-XII nml as tested (except some spasms/twitching or right facial nerve), grossly normal, no motor/sensory deficits, other (resting tremors upper exztremities) - PSYCHIATRIC Psych/Mental Status: oriented x 3, anxious, tearful, other (asking for pain medicine or medicine for her withdrawals repeatedly.) - HEART Score HEART Score: History: Slightly Suspicious HEART Score: ECG: Non-Specific Repolarization Disturbance/LBBB/PM HEART Score: Age: 45-65 Years HEART Score: Risk Factors for Atherosclerotic Disease: > or = 3 Risk Factors or History of Atherosclerotic Disease HEART Score: Troponin: < or = Normal Limit Total HEART Score:: 4 Progress - PLAN OF CARE/RESULTS Progress/Plan/Lab Results: Vital Signs - 8 hr 08/16/19 04:17 08/16/19 08:17 Temperature 97.9 F 98.9 F Pulse Rate 72 151 H Respiratory Rate 20 28 H Blood Pressure 80/54 230/133 O2 Sat by Pulse Oximetry 100 98 Laboratory Results - last 24 hr 08/16/19 08/16/1908/15/20 06:16 06:16 06:16 WBC RBC Hgb Hct MCV MCH MCHC RDW Std Deviation Plt Count MPV Neut % (Auto) Lymph % (Auto) [place] % (Auto) Eos % (Auto) Baso % (Auto) Neut # (Auto) Lymph # (Auto) [place] # (Auto) Eos # (Auto) Baso # (Auto) PT INR PTT (Actin FS) Sodium 142 Potassium 3.9 Chloride 103 Carbon Dioxide 19 L Anion Gap 20 BUN 42 H Creatinine 1.3 H Estimated GFR/1.73 m2 41 BUN/Creatinine Ratio 32 Glucose 62 L POC Glucose Calculated Osmolality 292 Calcium 9.8 Total Bilirubin 0.40 AST 20 ALT 30 Alkaline Phosphatase 134 H Creatine Kinase 117 Troponin T High Sens 24 H Wcn-U-Azbdwvqebac Pept 1351 H Total Protein 7.4 Albumin 4.1 Globulin 3.3 Albumin/Globulin Ratio 1.2 Urine Source Urine Color Urine Turbidity Urine pH Ur Specific [place] Urine Protein Ur Glucose (Stick) Ur Ketones (Stick) Urine Blood Urine Nitrite Urine Bilirubin Urobilinogen Dipstick Urine Leukocytes Urine WBC (Auto) Urine RBC (Auto) U Epithel Cells (Auto) Urine Bacteria (Auto) Plasma/Serum Ethyl Alc 08/16/19 08/16/19 08/16/19 06:16 06:16 06:16 WBC 11.37 H RBC 4.34 Hgb 12.4 Hct 38.1 MCV 87.8 MCH 28.6 MCHC 32.5 L RDW Std Deviation 16.1 H Plt Count 321 MPV 10.6 H Neut % (Auto) 64.8 Lymph % (Auto) 22.0 [place] % (Auto) 8.3 Eos % (Auto) 4.5 Baso % (Auto) 0.4 Neut # (Auto) 7.37 H Lymph # (Auto) 2.50 [place] # (Auto) 0.94 H Eos # (Auto) 0.51 Baso # (Auto) 0.05 PT 12.4 INR 0.92 PTT (Actin FS) 26.5 Sodium Potassium Chloride Carbon Dioxide Anion Gap BUN Creatinine Estimated GFR/1.73 m2 BUN/Creatinine Ratio Glucose POC Glucose Calculated Osmolality Calcium Total Bilirubin AST ALT Alkaline Phosphatase Creatine Kinase Troponin T High Sens [id number]-Tjlatoegmmv Pept Total Protein Albumin Globulin Albumin/Globulin Ratio Urine Source Urine Color Urine Turbidity Urine pH Ur Specific [place] Urine Protein Ur Glucose (Stick) Ur Ketones (Stick) Urine Blood Urine Nitrite Urine Bilirubin Urobilinogen Dipstick Urine Leukocytes Urine WBC (Auto) Urine RBC (Auto) U Epithel Cells (Auto) Urine Bacteria (Auto) Plasma/Serum Ethyl Alc 08/16/19 08/16/19 07:46 08:39 WBC RBC Hgb Hct MCV MCH MCHC RDW Std Deviation Plt Count MPV Neut % (Auto) Lymph % (Auto) [place] % (Auto) Eos % (Auto) Baso % (Auto) Neut # (Auto) Lymph # (Auto) [place] # (Auto) Eos # (Auto) Baso # (Auto) PT INR PTT (Actin FS) Sodium Potassium Chloride Carbon Dioxide Anion Gap BUN Creatinine Estimated GFR/1.73 m2 BUN/Creatinine Ratio Glucose POC Glucose 68 L D Calculated Osmolality Calcium Total Bilirubin AST ALT Alkaline Phosphatase Creatine Kinase Troponin T High Sens Jpo-J-Kgnnyyswodq Pept Total Protein Albumin Globulin Albumin/Globulin Ratio Urine Source CLEAN CATCH Urine Color YELLOW Urine Turbidity CLEAR Urine pH 5.5 Ur Specific [place] 1.011 Urine Protein NEGATIVE Ur Glucose (Stick) NEGATIVE Ur Ketones (Stick) NEGATIVE Urine Blood NEGATIVE Urine Nitrite NEGATIVE Urine Bilirubin NEGATIVE Urobilinogen Dipstick NORMAL Urine Leukocytes NEGATIVE Urine WBC (Auto) <10 Urine RBC (Auto) <10 U Epithel Cells (Auto) <10 Urine Bacteria (Auto) NEGATIVE Plasma/Serum Ethyl Alc Orders Category Date Time Status Admit - [facility] Routine AdmDCTranf 08/16/19 08:39 Active Apply Mechanical Device [QM] ORDERED Care 08/16/19 08:39 Active Cardiac Monitoring DIRECTED Care 08/16/19 04:30 Active Intake and Output-Strict ORDERED Care 08/16/19 08:39 Active NEWS Score 2-4:Order NEWS Lactate Series NOW Care 08/16/19 04:21 Active Oxygen Therapy- ED Nursing DIRECTED Care 08/16/19 04:30 Active Saline Loc NOW Care 08/16/19 04:30 Active Vital Signs Order Q1H Care 08/16/19 08:39 Active Z-Document. for Tele Applied ORDERED Care 08/16/19 08:39 Active CHEST-2 VIEWS [RAD] Stat Exams 08/16/19 04:30 Completed ALCOHOL BLOOD Stat Lab 08/16/19 06:16 Completed CBC WITH DIFF [HEME] Routine Lab 08/17/19 06:00 Ordered CBC WITH ELECTRONIC DIFF [HEME] Stat Lab 08/16/19 06:16 Completed CK PROFILE [SP CHEM] Q8H Lab 08/16/19 08:39 Ordered CK PROFILE [SP CHEM] Q8H Lab 08/16/19 16:39 Ordered CK PROFILE [SP CHEM] Stat Lab 08/16/19 06:16 Completed COMPREHENSIVE METABOLIC PANEL [CHEM] Routine Lab 08/17/19 06:00 Ordered COMPREHENSIVE METABOLIC PANEL [CHEM] Stat Lab 08/16/19 06:16 Completed MAGNESIUM [CHEM] Routine Lab 08/17/19 06:00 Ordered PRO B-NATRIURETIC PEPTIDE Stat Lab 08/16/19 06:16 Completed PROTIME WITH INR [COAG] Stat Lab 08/16/19 06:16 Completed PTT [COAG] Stat Lab 08/16/19 06:16 Completed TROPONIN T HIGH SENSITIVITY Q8H Lab 08/16/19 08:39 Ordered TROPONIN T HIGH SENSITIVITY Q8H Lab 08/16/19 16:39 Ordered TROPONIN T HIGH SENSITIVITY Stat Lab 08/16/19 06:16 Completed TSH Routine Lab 08/17/19 06:00 Ordered URINALYSIS W/POSS RFLX CULT [URINALYSIS] Stat Lab 08/16/19 07:46 Completed URINE DRUG SCREEN Stat Lab 08/16/19 07:46 Received 0.9% Sodium Chloride Inj [Ns] 1,000 ml Med 08/16/19 08:45 Active IV 125 mls/hr Acetaminophen [Tylenol] Med 08/16/19 08:38 Active 650 mg PO Q6H PRN PRN Aspirin Med 08/16/19 04:30 Discontinued 300 mg NC NOW ONE Aspirin Med 08/16/19 04:30 Discontinued 325 mg PO NOW ONE Diazepam [Valium] Med 08/16/19 08:38 Active 5 mg PO BID PRN PRN Ketorolac [Toradol] Med 08/16/19 05:06 Discontinued 60 mg IM NOW ONE Labetalol Med 08/16/19 08:08 Discontinued 10 mg IV NOW ONE Lorazepam [Ativan] Med 08/16/19 05:06 Discontinued 1 mg IM NOW ONE Metoprolol [Lopressor] Med 08/16/19 08:45 Active 5 mg IV Q6H Ondansetron [Zofran] Med 08/16/19 08:38 Active 4 mg IV Q4H PRN PRN Orphenadrine [Norflex] Med 08/16/19 05:06 Discontinued 60 mg IM NOW ONE Propranolol [Inderal] Med 08/16/19 08:39 Active 10 mg PO Q4H Tizanidine [Zanaflex] Med 08/16/19 08:08 Discontinued 4 mg PO NOW ONE Tizanidine [Zanaflex] Med 08/16/19 16:00 Active 4 mg PO Q8HR Water, Sterile Inj [Sterile Water Inj.] Med 08/16/19 08:37 Discontinued 1.2 ml INJ NOW ONE Ziprasidone [Geodon] Med 08/16/19 08:37 Discontinued 20 mg IM NOW ONE Telemetry [OM.EQ] Routine Oth 08/16/19 08:39 Active EKG [EKG] Routine Ther 08/17/19 08:00 Ordered EKG [EKG] Stat Ther 08/16/19 04:23 Draft Transfer/Admit Order [TRANSFER] Routine Transfer 08/16/19 08:17 Completed Result Diagrams: 08/16/19 06:16 08/16/19 06:16 - EKG 1 Time of EKG reading by physician:: 04:20 EKG Read and Signed by:: Luis Eduardo Garcia EKG Interpretation (*Must complete 3 of following elements*): Abnormal Rate: 55 Rhythm: NSR, bradycardia Oxly: normal QRS: poor R wave progression, LVH NC Interval: normal ST Wave: non-specific ST changes Prior EKG Comparison: changes noted (improved rate from 04/16 (tachy 143)) Comments: prolonged QT 3 Time of EKG reading by physician:: 08:10 EKG Read and Signed by:: Molly Frey Rate: 154 Rhythm: sinus tachycardia Oxly: normal ST Wave: non-specific ST changes Prior EKG Comparison: changes noted - CHANGE OF SHIFT REPORT (ED Provider) 1 Report Given and Care Transferred to:: Tk Time of Transfer: 07:00 Items Pending: Labs Departure - Departure Date of Disposition Decision: 08/16/19 Time of Disposition Decision: 08:58 DIAGNOSIS: Sick sinus syndrome Acute drug withdrawal syndrome Qualifiers: Complication of substance-induced condition: with unspecified complication Qualified Code(s): F19.239 - Other psychoactive substance dependence with withdrawal, unspecified Chest pain Qualifiers: Chest pain type: unspecified Qualified Code(s): R07.9 - Chest pain, unspecified Disposition: ADMITTED INPATIENT 09 Certified Medical Emergency: Emergent Condition: Good Referrals and Follow-Ups: Hamilton Glez MD [Primary Care Provider] - - Critical Care Note This patient required my direct & personal management of CC.: No Attestation - Physician/ NAHUM Attestation Patient care was provided by Advanced Practice Provider:: No The physician spent face to face time with patient:: Yes Advanced Practice Provider documentation review:: Supervising physician onsite and consulted in the evaluation and care of this patient. The physician did have a face to face encounter with the patient.
[2019-08-16] MEDS ORDERED: TORADOL IM ONE (05:06)
[2019-08-16] MEDS ORDERED: ATIVAN IM ONE (05:06)
[2019-08-16] MEDS ORDERED: NORFLEX IM ONE (05:06)
--- NOTE | 2019-08-16 05:53 | Diag Imaging Result Doc PS360 ---
EXAM: CHEST-2 VIEWS HISTORY: CP TECHNIQUE: Two views COMPARISON: 04/23/2019 FINDINGS: The lungs are well expanded. The heart is mildly enlarged. The vessels are not distended. There are no infiltrates. No pleural effusions. IMPRESSION: Mildly prominent heart Electronically signed by Jabier Kumari 08/16/2019 5:50 AM
[2019-08-16 06:43] LABS: INR 0.92; PROTIME 12.4 Seconds (11.0-16.0)
[2019-08-16 06:44] LABS: PTT 26.5 Seconds (22.3-41.8)
[2019-08-16 06:49] LABS: BASO# 0.05 X1000 (0.0-0.2); BASO% 0.4 % (0.0-0.8); EOS# 0.51 X1000 (0.0-0.7); EOS% 4.5 % (0.0-10.0); HEMATOCRIT 38.1 % (37.0-47.0); HEMOGLOBIN 12.4 g/dL (12.0-16.0); MCH 28.6 PG (27-31); MCHC 32.5 g/dL (33-37); MCV 87.8 FL (81-99); MONO# 0.94 X1000 (0.11-0.59); MONO% 8.3 % (1.7-9.3); MPV 10.6 FL (7.4-10.4); NEUT# 7.37 X1000 (1.4-6.5); NEUT% 64.8 % (42.2-75.2); PLT 321 X1000 (130-400); RBC 4.34 XMIL (4.2-5.4); RDW 16.1 % (11.5-14.5); WBC 11.37 X1000 (4.8-10.8)
[2019-08-16 06:55] LABS: ALB/GLOB RATIO 1.2; ALBUMIN 4.1 g/dL (3.5-5.0); CALCIUM 9.8 mg/dL (8.8-10.2); CREATININE 1.3 mg/dL (0.5-0.9); POTASSIUM 3.9 mmol/L (3.5-5.1); TOTAL BILIRUBIN 0.4 mg/dL (0.20-1.00); TOTAL PROTEIN 7.4 g/dL (6.3-8.3)
[2019-08-16] MEDS ORDERED: ZANAFLEX PO ONE (08:08)
[2019-08-16] MEDS ORDERED: LABETALOL IV ONE (08:08)
[2019-08-16 08:34] LABS: URINE SOURCE CLEAN CATCH
[2019-08-16] MEDS ORDERED: GEODON IM ONE (08:37)
[2019-08-16] MEDS ORDERED: STERILE WATER INJ. INJ ONE (08:37)
[2019-08-16] MEDS ORDERED: TYLENOL PO PRN (08:38)
[2019-08-16] MEDS ORDERED: VALIUM PO PRN (08:38)
[2019-08-16] MEDS: INDERAL PO SCH ×2 (08:39→13:15)
[2019-08-16] MEDS: LOPRESSOR IV SCH ×3 (08:45→20:30)
[2019-08-16 08:52] LABS: BILIRUBIN URINE NEGATIVE (NEGATIVE); BLOOD URINE NEGATIVE (NEGATIVE); COLOR YELLOW; GLUCOSE URINE NEGATIVE (NEGATIVE); KETONE URINE NEGATIVE (NEGATIVE); LEUKOCYTES URINE NEGATIVE (NEGATIVE); NITRITE URINE NEGATIVE (NEGATIVE); PH URINE 5.5; PROTEIN URINE NEGATIVE (NEGATIVE); SP GRAVITY URINE 1.011; TURBIDITY URINE CLEAR (CLEAR); UROBILINOGEN URINE NORMAL (NORMAL)
[2019-08-16 08:53] LABS: UR EPITHELIAL CELLS <10 /HPF (<10); URINE BACTERIA NEGATIVE /HPF; URINE RBC <10 /HPF (<10); URINE WBC <10 /HPF (<10)
[2019-08-16] MEDS: ATIVAN IM ONE ×2 (09:24→11:29)
[2019-08-16 10:04] LABS: UR AMPHETAMINES QUAL NONE DETECTED (NONE DETECT); UR BARBITUATES QUAL NONE DETECTED (NONE DETECT); UR BENZODIAZEPIN QUAL NONE DETECTED (NONE DETECT); UR CANNABINOIDS QUAL NONE DETECTED (NONE DETECT); UR COCAINE QUAL NONE DETECTED (NONE DETECT); UR METHADONE QUAL NONE DETECTED (NONE DETECT); UR OPIATES QUAL NONE DETECTED (NONE DETECT); UR OXYCODONE QUAL NONE DETECTED (NONE DETECT); UR PCP QUAL NONE DETECTED (NONE DETECT)
--- NOTE | 2019-08-16 10:04 | HISTORY AND PHYSICAL ---
PRIMARY CARE PROVIDER: Hamilton Glez MD. CHIEF COMPLAINT: Back pain, Zanaflex refill. HISTORY OF PRESENT ILLNESS: Ms. 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 She has not been able to sleep. Also mentioned developing some midsternal chest pain 30 minutes prior to arrival. She was dropped off at the ED by her . The patient since admission has gone into Zanaflex withdrawal. I was unable to gather any information from her. We are trying to obtain a PICC line at this time. She has no current IV access. She is awake, however, she is not answering any questions, really not following any commands, just thriving in the bed. All information was taken from ED staff and ED notes. PAST MEDICAL HISTORY: Per HPI. PAST SURGICAL HISTORY: Colon resection, x3, hysterectomy, lumbar surgery x3, cholecystectomy. SOCIAL HISTORY: Appears to be Zanaflex abuse drug-seeking. FAMILY HISTORY: Unable to obtain. ALLERGIES: Morphine and Nubain. MEDICATIONS: Home medications are being compiled. PHYSICAL EXAMINATION: VITAL SIGNS: Current temperature is 98.9 degrees, heart rate 151, respirations 28, blood pressure is 230/133, 98% on room air. GENERAL: Ms. Juarez is a 64-year-old female, who is lying in the stretcher, writhing in the bed. She does not answer any questions, however, she is awake, but does not follow commands or answer questions. She appears to be in full withdrawal. HEENT: Atraumatic, normocephalic. PERRL. NECK: Supple. Trachea midline. CV: Tachycardic. RESPIRATORY: Lung sounds clear bilaterally. GI: Soft, nontender, nondistended. Has multiple scars from abdominal surgeries. EXTREMITIES: Lower extremities negative for edema. Bilateral pedal pulses are palpable. NEUROLOGIC: Again, she is awake. She is not following any commands, writhing in bed. LABORATORY DATA: Initial EKG sinus bradycardia at 55 beats per minute. Chest x-ray: Mildly prominent heart. White count 11, hemoglobin and hematocrit 12 and 38, platelet count is 321,000. Sodium 142, potassium 3.9, carbon dioxide is 19, anion gap is 20, BUN 42, creatinine 1.3, blood glucose is 62, alkaline phosphatase 134. CK is 117, troponin 24. ProBNP is 1351. Urinalysis is negative. Alcohol level negative. No UDS was done, however, patient has already had sedating medication given to her. ASSESSMENT AND PLAN: 1. Zanaflex withdrawal. Patient has history of abuse as well as drug-seeking behaviors. We will monitor her in the ICU, give her IV beta- blockers, p.o. Valium, and continue her home Zanaflex back with a taper. 2. Severe back pain, follows with the Pain Clinic in [place]. 3. Tachycardia secondary to withdrawal. 4. Fluid volume depletion. We will continue with aggressive IV hydration. Creatinine is currently 1.3. 5. High anion gap metabolic acidosis. We will continue with hydration. 6. Complaint of chest pain. Hard to evaluate the patient at this time, but we will continue to trend her cardiac enzymes. First troponin was 24. We will get a repeat EKG. She is currently sinus tachycardic secondary to going into withdrawal. 7. Accelerated hypertension secondary to withdrawal syndrome. We will continue with p.o. propranolol. 8. Diabetes mellitus type 2. We will place her on sliding scale with pattern blood sugars. 9. Encephalopathy secondary to withdrawal. 10. Further recommendation to follow physician evaluation, laboratory and diagnostic data. Dictated by YOGI Anderson for Leon Garcia MD Addendum: Patient seen and examined by myself. Agree with YOGI note. It reflects my assessment and plan. Patient is being admitted to hospital for Zanaflex withdrawal again. Because this time is very agitated will send her to ICU and will follow plan mentioned above. cc: MD ROSALIND Hollins
--- NOTE | 2019-08-16 10:18 | EKG Report ---
Test Performed on : 08/16/2019 08:04:46 AM Test Reason : REPEAT Blood Pressure : / mmHG Vent. Rate : 154 BPM Atrial Rate : 154 BPM P-R Int : 112 ms QRS Dur : 082 ms QT Int : 260 ms P-R-T Axes : 036 010 104 degrees QTc Int : 416 ms Sinus tachycardia. with premature atrial complexes. ST & T wave abnormality, consider lateral ischemia Abnormal ECG When compared with ECG of 16-AUG-2019 04:14, (Unconfirmed) premature atrial complexes. are now present Vent. rate has increased BY [address] now depressed in Lateral leads T wave amplitude has increased in Anterior leads T wave inversion now evident in Lateral leads Unconfirmed Result
[2019-08-16] MEDS: NS 1,000 ML IV SCH ×2 (10:37→15:47)
[2019-08-16 12:29] LABS: CK INDEX 2.3 (0.0-2.5)
[2019-08-16] MEDS: HALDOL IV PRN ×2 (13:00→20:43)
[2019-08-16 13:59] LABS: URINE SOURCE CATH
[2019-08-16 14:15] LABS: BILIRUBIN URINE NEGATIVE (NEGATIVE); BLOOD URINE NEGATIVE (NEGATIVE); COLOR YELLOW; GLUCOSE URINE NEGATIVE (NEGATIVE); KETONE URINE NEGATIVE (NEGATIVE); LEUKOCYTES URINE NEGATIVE (NEGATIVE); NITRITE URINE NEGATIVE (NEGATIVE); PROTEIN URINE NEGATIVE (NEGATIVE); SP GRAVITY URINE 1.011; TURBIDITY URINE CLEAR (CLEAR); UROBILINOGEN URINE NORMAL (NORMAL)
[2019-08-16 14:16] LABS: UR EPITHELIAL CELLS <10 /HPF (<10); URINE BACTERIA NEGATIVE /HPF; URINE RBC <10 /HPF (<10); URINE WBC <10 /HPF (<10)
[2019-08-16] MEDS ORDERED: CARDIZEM IV ONE (14:41)
[2019-08-16] MEDS ORDERED: PHENOBARBITAL IV ONE (14:44)
[2019-08-16] MEDS ORDERED: LOPRESSOR 10 MG in NS 50 ML IV SCH (14:45)
[2019-08-16] MEDS ORDERED: LOPRESSOR IV SCH (15:00)
[2019-08-16] MEDS: ZANAFLEX PO SCH ×2 (15:47→20:30)
[2019-08-16 18:26] LABS: CK INDEX 2.9 (0.0-2.5); CK-MB 9.65 ng/mL (0.0-5.0)
[2019-08-17] MEDS: APRESOLINE IV PRN ×3 (00:10→20:14)
[2019-08-17] MEDS: HALDOL IV PRN ×4 (00:10→20:14)
[2019-08-17] MEDS: NS 1,000 ML IV SCH ×3 (00:11→16:52)
[2019-08-17] MEDS: LOPRESSOR IV SCH ×2 (03:13→08:12)
[2019-08-17] MEDS: ZOFRAN IV PRN ×2 (04:37→16:52)
[2019-08-17] MEDS: ZANAFLEX PO SCH ×3 (04:38→20:13)
--- NOTE | 2019-08-17 07:27 | EKG Report ---
Test Performed on : 08/17/2019 06:47:55 AM Test Reason : chest pain Blood Pressure : / mmHG Vent. Rate : 099 BPM Atrial Rate : 099 BPM P-R Int : 162 ms QRS Dur : 084 ms QT Int : 414 ms P-R-T Axes : 043 006 092 degrees QTc Int : 531 ms Normal sinus rhythm. Left ventricular hypertrophy with repolarization abnormality Prolonged QT Abnormal ECG When compared with ECG of 16-AUG-2019 08:04, (Unconfirmed) premature atrial complexes. are no longer present Vent. rate has decreased BY 55 BPM T wave amplitude has decreased in Anterolateral leads Confirmed by Jeevan Milligan MD ([id number]) on 08/18/2019 5:00:05 PM
[2019-08-17 09:24] LABS: BASO# 0.04 X1000 (0.0-0.2); BASO% 0.4 % (0.0-0.8); EOS# 0.14 X1000 (0.0-0.7); EOS% 1.3 % (0.0-10.0); HEMATOCRIT 33.5 % (37.0-47.0); HEMOGLOBIN 10.6 g/dL (12.0-16.0); IMM GRAN# 0.03 X1000 (0.0-0.04); IMM GRAN% 0.3 % (0.0-0.5); LYMPH# 1.34 X1000 (1.2-3.4); LYMPH% 12.7 % (20.5-51.1); MCH 27.6 PG (27-31); MCHC 31.6 g/dL (33-37); MCV 87.2 FL (81-99); MONO# 0.39 X1000 (0.11-0.59); MONO% 3.7 % (1.7-9.3); MPV 10.9 FL (7.4-10.4); NEUT# 8.65 X1000 (1.4-6.5); NEUT% 81.6 % (42.2-75.2); PLT 365 X1000 (130-400); RBC 3.84 XMIL (4.2-5.4); RDW 16.1 % (11.5-14.5); WBC 10.59 X1000 (4.8-10.8)
[2019-08-17] MEDS: CARDIZEM CD PO SCH (09:25)
[2019-08-17] MEDS: INDERAL PO SCH ×2 (09:25→20:13)
[2019-08-17 09:47] LABS: ALB/GLOB RATIO 1.4; ALBUMIN 3.7 g/dL (3.5-5.0); CALCIUM 8.5 mg/dL (8.8-10.2); MAGNESIUM 1.7 mg/dL (1.5-2.7); POTASSIUM 3.4 mmol/L (3.5-5.1); TOTAL BILIRUBIN 0.62 mg/dL (0.20-1.00); TOTAL PROTEIN 6.4 g/dL (6.3-8.3)
[2019-08-17] MEDS: IMODIUM PO PRN (10:55)
--- NOTE | 2019-08-17 14:54 | PROGRESS NOTE ---
DATE: 08/17/2019 INTERVAL HISTORY: The patient is significantly less agitated than previously, but still a little confused. Complains of her chronic back pain and "not feeling right." She remains afebrile. No acute events. REVIEW OF SYSTEMS: Negative. A 12-point review of systems negative except as per interval history. LABS: WBC 10.59, hemoglobin 10.6, hematocrit 33.5, platelets 365,000. Sodium 141, potassium 3.4, BUN 26, creatinine 1, previous glucose 62, glucoses today 60 to 128. First repeat troponin 65, most recent repeat 47. Urinalysis unremarkable. UDS negative. Alcohol level negative. TSH within normal limits. VITALS: T-max 99.7 degrees, pulse 89, respirations 22, blood pressure 170/71, O2 saturation 99% on room air. PHYSICAL EXAMINATION: General: In no acute distress, slightly anxious appearing. Vitals: As above. HEENT: Normocephalic, atraumatic. Moist mucous membranes. No cervical adenopathy. Cardiovascular: Regular rate and rhythm. No murmurs noted. Pulmonary: Clear to auscultation bilaterally. No wheezing, rales, or rhonchi. Abdomen: Soft, nontender, nondistended. Bowel sounds positive. Extremities: Peripheral pulses intact. No clubbing or cyanosis. Neurologic: Cranial nerves grossly intact. Pupils slightly large but reactive. No focal deficits identified. Psychiatric: Slightly anxious but awake, alert and largely cooperative. Patient oriented to person, place and month, but not year. ASSESSMENT AND PLAN: 1. 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 Still a little confused but significantly improved. Stopping Valium. Back on Zanaflex at a reduced dose. If she has further symptoms, we will add clonidine to try to control her sympathetic drive without feeding into her drug abuse. Appears to be stable to leave the ICU at this point. 2. Chronic back pain. Tylenol available. On review of the PDMP, the patient does not appear to have had a controlled substance prescription for several months. 3. Tachycardia, resolved, likely secondary to Zanaflex abuse and withdrawal. 4. Dehydration, mildly elevated creatinine. Improving with IV fluids so we will continue. Initial creatinine 1.3, repeat creatinine 1.0. 5. Chest pain, now resolved. High sensitivity troponins never above 100 and trended down on last check. 6. Hypertension. Restarted patient's home diltiazem. Will see what that does and consider adding clonidine if blood pressure remains elevated. 7. Diabetes. Patient's glucose was actually a little on the low side initially. Holding patient's home Lantus currently. When she does discharge will likely need to be on a lower dose of Lantus. Hypoglycemia may have been also contributing to patient's issues on admission. 8. Paroxysmal atrial fibrillation, but appears to be normal sinus rhythm currently.
[2019-08-17] MEDS ORDERED: ZOFRAN IV PRN (16:31)
[2019-08-18] MEDS: NS 1,000 ML IV SCH ×3 (00:43→18:23)
[2019-08-18] MEDS: HALDOL IV PRN (00:46)
[2019-08-18] MEDS: ZANAFLEX PO SCH ×3 (06:59→20:35)
[2019-08-18] MEDS: INDERAL PO SCH ×2 (09:01→20:35)
[2019-08-18] MEDS: CARDIZEM CD PO SCH (09:01)
[2019-08-18 09:16] LABS: BASO# 0.03 X1000 (0.0-0.2); BASO% 0.2 % (0.0-0.8); EOS# 0.19 X1000 (0.0-0.7); EOS% 1.5 % (0.0-10.0); HEMATOCRIT 34.3 % (37.0-47.0); HEMOGLOBIN 10.9 g/dL (12.0-16.0); IMM GRAN# 0.06 X1000 (0.0-0.04); IMM GRAN% 0.5 % (0.0-0.5); LYMPH% 9.4 % (20.5-51.1); MCH 27.8 PG (27-31); MCHC 31.8 g/dL (33-37); MCV 87.5 FL (81-99); MONO# 0.42 X1000 (0.11-0.59); MONO% 3.3 % (1.7-9.3); MPV 11.2 FL (7.4-10.4); NEUT# 10.89 X1000 (1.4-6.5); NEUT% 85.1 % (42.2-75.2); PLT 391 X1000 (130-400); RBC 3.92 XMIL (4.2-5.4); RDW 15.8 % (11.5-14.5); WBC 12.79 X1000 (4.8-10.8)
[2019-08-18 09:27] LABS: AGAP 14; BUN 13 mg/dL (8-22); CALCIUM 8.4 mg/dL (8.8-10.2); CHLORIDE 111 mmol/L (98-107); COSMO 284; CREATININE 0.7 mg/dL (0.5-0.9); ESTIMATED GFR > 60; GLUCOSE 149 mg/dL (70-104); POTASSIUM 3.4 mmol/L (3.5-5.1); SODIUM 141 mmol/L (136-145); TCO2 16 mmol/L (25-35)
[2019-08-18 09:52] LABS: ANISOCYTOSIS 1+; EOS 2 % (1-10); LYMPHS 9 % (21-51); MONO 3 % (1-9); SEGS 86 % (42-75)
[2019-08-18 09:53] LABS: HYPOCHROM 2+; MICROCYTOSIS 1+; POIKILOCYTOSIS 1+
[2019-08-18] MEDS: CATAPRES PO SCH ×2 (11:11→20:35)
--- NOTE | 2019-08-18 15:17 | PROGRESS NOTE ---
DATE: 08/18/2019 INTERVAL HISTORY: The patient remains mildly confused but otherwise stable. No acute events overnight. No new complaints. LABS: WBC 12.7, hemoglobin 10.9, hematocrit 34.3, platelets 391,000. Sodium 141, potassium 3.4, BUN 13, creatinine 0.7, glucose 128 to 143. VITAL SIGNS: T-max 98.8 degrees, pulse 64, respirations 18, blood pressure 161/71, O2 saturation 98% on room air. PHYSICAL EXAMINATION: General: No acute distress. Vital signs: As above. HEENT: Normocephalic, atraumatic. Moist mucous membranes. No cervical adenopathy. Cardiovascular: Regular rate and rhythm. No murmurs noted. Pulmonary: Clear to auscultation bilaterally. No wheezing, rales, or rhonchi. Abdomen: Soft, nontender, nondistended. Bowel sounds positive. Extremities: Peripheral pulses intact. No clubbing or cyanosis. Neurologic: Cranial nerves grossly intact. No focal deficits identified. Psychiatric: Awake, alert, cooperative, oriented to person, place, and month but not year. ASSESSMENT AND PLAN: 1. 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 Still mildly confused but continues to improve slowly. Off Valium. On Zanaflex but at a reduced dose. We will keep the dose stable today but likely try to discontinue it tomorrow. Dehydration and hypoglycemia may also have been contributing to her initial presentation. 2. Dehydration, acute kidney injury. Patient with mildly elevated BUN and creatinine on admission at 42 and 1.3. With hydration those have improved to 13 and 0.7. Likely baseline at this point. 3. Hypoglycemia. Patient's glucose low on presentation at 62. Stopped her home insulin and has been controlled without insulin thus far. 4. Chronic back pain. Tylenol available. 5. Tachycardia, resolved. Likely secondary to Zanaflex withdrawal and dehydration. 6. Hypertension. Restarted patient's home diltiazem but still running fairly consistently high. Was given hydralazine yesterday afternoon and had sharp drop in blood pressure afterwards so that was discontinued. Will place on low-dose clonidine which may also help with her Zanaflex withdrawal and see how she does with that. 7. Paroxysmal atrial fibrillation. Has been normal sinus rhythm and/or sinus tachycardia here.
[2019-08-19] MEDS: NS 1,000 ML IV SCH ×3 (03:11→17:43)
[2019-08-19] MEDS: ZANAFLEX PO SCH (05:15)
[2019-08-19 07:11] LABS: BASO# 0.03 X1000 (0.0-0.2); BASO% 0.2 % (0.0-0.8); EOS# 0.16 X1000 (0.0-0.7); EOS% 1.3 % (0.0-10.0); HEMATOCRIT 31.1 % (37.0-47.0); HEMOGLOBIN 9.7 g/dL (12.0-16.0); IMM GRAN# 0.05 X1000 (0.0-0.04); IMM GRAN% 0.4 % (0.0-0.5); LYMPH# 1.56 X1000 (1.2-3.4); LYMPH% 12.6 % (20.5-51.1); MCH 27.6 PG (27-31); MCHC 31.2 g/dL (33-37); MCV 88.6 FL (81-99); MONO% 4.9 % (1.7-9.3); MPV 10.7 FL (7.4-10.4); NEUT# 9.97 X1000 (1.4-6.5); NEUT% 80.6 % (42.2-75.2); PLT 374 X1000 (130-400); RBC 3.51 XMIL (4.2-5.4); RDW 15.8 % (11.5-14.5); WBC 12.37 X1000 (4.8-10.8)
[2019-08-19 07:27] LABS: AGAP 15; BUN 10 mg/dL (8-22); CHLORIDE 107 mmol/L (98-107); COSMO 276; CREATININE 0.7 mg/dL (0.5-0.9); ESTIMATED GFR > 60; GLUCOSE 125 mg/dL (70-104); POTASSIUM 3.3 mmol/L (3.5-5.1); SODIUM 138 mmol/L (136-145); TCO2 16 mmol/L (25-35)
[2019-08-19] MEDS: INDERAL PO SCH ×2 (09:20→20:49)
[2019-08-19] MEDS: CARDIZEM CD PO SCH (09:20)
[2019-08-19] MEDS: CATAPRES PO SCH ×2 (09:20→20:49)
[2019-08-19] MEDS: IMODIUM PO PRN ×3 (09:27→17:42)
[2019-08-19] MEDS: POTASSIUM CHLORIDE 20 MEQ/SWI 20 MEQ/100 ML IVPB IV SCH ×2 (09:28→11:38)
--- NOTE | 2019-08-19 14:24 | PROGRESS NOTE ---
DATE: 08/19/2019 INTERVAL HISTORY: The patient is still mildly confused, but is the most alert and coherent that she has been since coming here. She requested her Zanaflex several times. Informed patient that we have weaned her off of it, and we do not really have any intention of restarting it. I did ask the patient why she wanted it, and her only response was "because I need it." I attempted to clarify why she needed it, and her response was again "because I need it." No other complaints. No acute events overnight. REVIEW OF SYSTEMS: Twelve point review of systems negative except as per interval history. LABS: WBC 12.3, hemoglobin 9.7, hematocrit 31.1, platelets 374,000. Sodium 138, potassium 3.3, BUN 10, creatinine 0.7, glucose 128 to 171. VITALS: T-max 99.2 degrees, pulse 70, respirations 16, blood pressure 147/47, O2 saturation 100% on room air. PHYSICAL EXAMINATION: General: No acute distress. Vitals: As above. HEENT: Normocephalic, atraumatic. Moist mucous membranes. No cervical adenopathy. Cardiovascular: Regular rate and rhythm. No murmurs noted. Pulmonary: Clear to auscultation bilaterally. No wheezing, rales, or rhonchi. Abdomen: Soft, nontender, nondistended. Bowel sounds positive. Extremities: Peripheral pulses intact. No clubbing, cyanosis. Neurologic: Cranial nerves grossly intact. No focal deficits identified. Psychiatric: Patient awake, alert, cooperative. She is oriented to everything but year. Affect remains odd. Most responses are appropriate. ASSESSMENT AND PLAN: 1. 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 The patient is still mildly confused but appears to be improving rapidly. He has done well off Valium. Today we have discontinued the Zanaflex as well. Hopefully, we will be able to keep her off of it as she has had several admissions with abuse and withdrawal issues. Dehydration and hypoglycemia may have also been contributing to her initial presentation. 2. Dehydration, acute kidney injury. Patient with mildly elevated BUN and creatinine on admission at 42 and 1.3, respectively. With hydration, those improved to 13 and 0.7. She is likely at baseline at this point. 3. Hypoglycemia. On presentation, patient's glucose was low at 62. We have been holding her off insulin entirely so far, and control remains reasonable. We will see what she does now that she is more awake and may start eating a little more. 4. Chronic back pain. Tylenol available. 5. Tachycardia, resolved. Likely secondary to dehydration and Zanaflex withdrawal. 6. Hypertension. The patient was not controlled on home diltiazem. She was given hydralazine at one point but had a rapid and severe drop, so that was discontinued. She was placed on low- dose clonidine yesterday for blood pressure control and assistance with Zanaflex withdrawal and appears to be doing reasonably well with that. Continue to monitor blood pressure. 7. Paroxysmal atrial fibrillation. She has been normal sinus rhythm and/or sinus tachycardia here. We will monitor.
[2019-08-19] MEDS: BENTYL PO PRN ×2 (17:42→20:49)
[2019-08-20] MEDS: HALDOL IV PRN (05:19)
[2019-08-20] MEDS: NS 1,000 ML IV SCH ×3 (06:23→14:44)
[2019-08-20] MEDS: CATAPRES PO SCH ×2 (09:51→23:17)
[2019-08-20] MEDS: INDERAL PO SCH ×2 (09:51→23:17)
[2019-08-20] MEDS: CARDIZEM CD PO SCH (09:51)
--- NOTE | 2019-08-20 17:54 | PROGRESS NOTE ---
DATE: 08/20/2019 SUBJECTIVE: The patient has no major complaints. She is still having diarrhea and she has a rectal tube in place. Clostridium difficile testing fortunately has been negative. OBJECTIVE: Vital Signs: Blood pressure is 149/59, heart rate 64, respiratory rate of 16, temperature of 99 degrees. Cardiovascular: Regular rate and rhythm. Pulmonary: Bilateral breath sounds clear to auscultation. GI: Soft, nontender, nondistended. Bowel sounds are positive. LABORATORY DATA: Her white count is, I do not have any new data today, but it has been okay. PROBLEM LIST: 1. Encephalopathy due to possible withdrawal. She still seems somewhat confused, but she is doing okay. She is off of Zanaflex and Valium and seems to be doing okay. 2. Dehydration with acute kidney injury, that is also resolved. 3. Hypokalemia. We will repeat labs tomorrow and kind of see how things are going. 4. Hypoglycemia. We are holding her medications, high blood sugar today has been 182. She is usually on Lantus 18 b.i.d., which is fairly high. I think she probably has had an A1c recently. Her last A1c was 7.5, that was in January, so we probably need to get another one just to kind of see where we are at. DISPOSITION: She is requesting to go home tomorrow, but she still has a rectal tube. I do not know how well she has been doing with PT or if they have been working with her. They saw her today and minimal assist to moderate. There is poor standing and poor sitting. She walked about six feet. I am not sure if she is going to need rehab. I am not sure if she will go or agree to go to rehab. We will see how things look. I guess the goal will be home testing. I think we could probably stop all her fluids. I am going to advance her diet and see how she does. cc: Heber Guy MD
[2019-08-20] MEDS: BENTYL PO PRN (23:25)
[2019-08-21 06:52] LABS: BASO# 0.04 X1000 (0.0-0.2); BASO% 0.4 % (0.0-0.8); EOS# 0.25 X1000 (0.0-0.7); EOS% 2.4 % (0.0-10.0); HEMATOCRIT 29.4 % (37.0-47.0); HEMOGLOBIN 9.4 g/dL (12.0-16.0); IMM GRAN# 0.09 X1000 (0.0-0.04); IMM GRAN% 0.9 % (0.0-0.5); LYMPH% 14.2 % (20.5-51.1); MCH 27.8 PG (27-31); MONO# 0.62 X1000 (0.11-0.59); MONO% 5.9 % (1.7-9.3); MPV 10.8 FL (7.4-10.4); NEUT# 8.07 X1000 (1.4-6.5); NEUT% 76.2 % (42.2-75.2); PLT 329 X1000 (130-400); RBC 3.38 XMIL (4.2-5.4); RDW 15.4 % (11.5-14.5); WBC 10.57 X1000 (4.8-10.8)
[2019-08-21 07:08] LABS: HEMOGLOBIN A1C 7.1 % (4.8-6.0)
[2019-08-21 07:20] LABS: AGAP 11; BUN 6 mg/dL (8-22); CALCIUM 8.7 mg/dL (8.8-10.2); CHLORIDE 107 mmol/L (98-107); COSMO 284; CREATININE 0.7 mg/dL (0.5-0.9); ESTIMATED GFR > 60; GLUCOSE 156 mg/dL (70-104); POTASSIUM 3.1 mmol/L (3.5-5.1); SODIUM 142 mmol/L (136-145); TCO2 24 mmol/L (25-35)
[2019-08-21] MEDS: INDERAL PO SCH ×2 (08:35→20:42)
[2019-08-21] MEDS: CARDIZEM CD PO SCH (08:35)
[2019-08-21] MEDS: CATAPRES PO SCH ×2 (08:35→20:42)
[2019-08-21] MEDS ORDERED: KLOR-CON PO ONE (11:49)
--- NOTE | 2019-08-21 16:59 | PROGRESS NOTE ---
DATE: 08/21/2019 SUBJECTIVE: Patient has no major complaints. OBJECTIVE: Blood pressure is 157/74, heart rate of 67, respiratory rate of 20, temperature 98.3 degrees, 99% on room air.Cardiovascular: Regular rate and rhythm. Pulmonary: Bilateral breath sounds, clear to auscultation. GI: Soft, nontender, nondistended. Bowel sounds are positive. LABORATORY DATA: White count is 10, hemoglobin and hematocrit 9 and 29, platelets 329,000, potassium is 3.1. PROBLEM LIST: 1. Encephalopathy. She seems to be doing better. I would advise her to stay off these chemicals, Zanaflex, things of that nature. I am not prescribing her any of that. 2. Acute kidney injury, dehydration, That seems to be better. 3. Hypokalemia, is persistent. We will continue supplementation. 4. Hypoglycemia. That also seems to be doing okay. 5. She periodically has some higher blood sugars, but nothing above 200. May be able to start back some medications. She is on a fairly decent amount of Lantus. We may give her 5 units daily and see how she does. DISPOSITION: Pending her clinical status, I am not sure what kind of level of functioning she is at, she is standing. I am waiting on PT evaluation to decide about possibly going home. She is very adamant about trying to go home. cc: Heber Guy MD
[2019-08-22] MEDS ORDERED: LANTUS INSULIN SUBQ SCH (09:00)
[2019-08-22] MEDS: CATAPRES PO SCH (09:42)
[2019-08-22] MEDS: CARDIZEM CD PO SCH (09:42)
[2019-08-22] MEDS: INDERAL PO SCH (09:42)
[2019-08-22 16:12] VITALS: BP 160/77
--- NOTE | 2019-08-22 16:37 | DISCHARGE SUMMARY ---
ADMISSION DATE: 08/17/2019 DISCHARGE DATE: 08/22/2019 DISCHARGE DIAGNOSES: 1. Possible Zanaflex overdose. 2. Acute kidney injury secondary to dehydration. 3. Hypokalemia. 4. Type 2 diabetes, usually on Lantus, fairly high-dose Lantus. 5. Drug possible noncompliance. 6. History of paroxysmal atrial fibrillation. PROCEDURES: None. CONSULTATIONS: None. HOSPITAL COURSE: This 64-year-old female who has back spasms, had been on Zanaflex previously, which she has had withdrawal issues with and chronic pain issues with possibly over taking her medications. She was brought here. There was over drug seeking behaviors. She was given beta blockers, p.o. Valium. She was placed on a Zanaflex kind of taper it looks like. Overall, she improved slowly, was a bit confused, but seemed to stabilize. We kind of got her off of everything. She was still somewhat weak. Now her blood sugars have been on the low side, but I do not think she had been eating very well initially. She is usually on up to 36 units a day, but that seemed a fairly large level. Her blood pressure also did not respond very well to her usual home medications and that had to be held, although her blood pressure is starting to creep up so I think we probably do need to put her back on her medications. She is not tachycardic. She has been a little bit bradycardic. I think we will probably put her on some Cardizem, but at a lower dose than 300, maybe just 180. In any case, patient stabilized and she was ready to go home. In fact, she had requested to be discharged against medical advice, but the plan was to let her go home. In any case, we set her up with home PT. She did okay with Physical Therapy, but she is still I think needs some physical therapy at home to kind of assist with all that. I would not prescribe this patient Zanaflex or possible agents of abuse just because potentially she has a low threshold for abuse. DISCHARGE MEDICATIONS: Cardizem CD 180 daily, Lantus 8 units daily. FOLLOWUP INSTRUCTIONS: Follow up with her PCP, who is Hamilton Glez. This is a 32 minute discharge. cc: Heber Guy MD
== END 2019-08-22 16:59 | disposition home health service (06) | DRG 897 ==
LOC: ICU 04:05 → ED 04:05 → SUATTDRO 11:47 → 3N 08-18 16:00
PROVIDERS: ATTEND Internal Medicine

== ENCOUNTER 2019-08-26 05:26 | Inpatient (IN) ==
--- NOTE | 2019-08-26 05:44 | PROVIDER DOCUMENTATION ---
HPI-General Adult - General Stated Complaint: cp Time Seen by Provider: 08/26/19 05:41 Source: EMS Unable to obtain history due to:: other (vague historian, refusing to answer) Allergies/Adverse Reactions: Patient Allergies Allergy/AdvReac Type Severity Reaction Status Date / Time morphine AdvReac FATIGUE Verified 08/26/19 06:09 nalbuphine HCl * AdvReac PASS OUT Verified 08/26/19 06:09 [From Nubain] Home Medications: Home Medication List Medication Instructions Recorded Confirmed Last Taken Type Diltiazem C.d. [Cardizem C.d] 180 mg PO DAILY #30 cap 08/22/19 08/26/19 Unknown Rx Insulin Glargine,Hum.rec.anlog 8 unit SQ QPM #1 08/22/19 08/26/19 Unknown Rx [Lantus Solostar] - History of Present Illness -Gen Adult Nature of Presenting Problems: Patient was brought in by [facility] for complaints of chest pain that was right sided. EMS states that is a vague poor historian as well but they told them not to take them to [facility] and bring her here. Patient is writhing on the bed and states that she thinks her called because of nausea . When asked about chest pain or abdominal pain she would not answer me. She is well known to me as I work in [place] as well and she has been seen many times here and there for xanaflex withdrawals. Review of Systems - Adult - REVIEW OF SYSTEMS - ADULT Constitutional: reports: see HPI Eyes: reports: see HPI Ears, Nose, Mouth & Throat: reports: see HPI Cardiovascular: reports: see HPI Respiratory: reports: see HPI Gastrointestinal: reports: see HPI Genitourinary: reports: see HPI Musculoskeletal: reports: see HPI Integumentary: reports: see HPI Neurological: reports: see HPI Psychiatric: reports: see HPI Endocrine: reports: see HPI Hematologic/Lymphatic: reports: see HPI Allergic/Immunologic: reports: see HPI All Other Systems: Reviewed and Negative Past History - Adult - PAST MEDICAL HISTORY-ADULT Review of Records: reports: Old Records Reviewed Major Childhood Illnesses: reports: denies history Cardiovascular: reports: HTN Respiratory: reports: denies history Gastrointestinal: reports: cancer (colon), GERD Obstetrical/Gynecological: reports: denies history Genitourinary: reports: denies history Musculoskeletal: reports: chronic pain (sees pain clinic in [place]) Neurological: reports: denies history Psychiatric: reports: other (drug seeking behavior, drug dependence, Oxycodone/Zanaflex) Endocrine/Immune: reports: Diabetes Other Conditions: reports: denies history - PRIOR SURGERIES/PROCEDURES Surgical/Procedure History: reports: appendectomy, cholecystectomy, hysterectomy , BTL, , bowel surgery, back/neck - PRIOR HOSPITALIZATIONS Prior Hospitalizations: reports: for other non-related - IMMUNIZATION STATUS Childhood Immunizations: See Nurse Assessment Flu Vaccine: See Nurse Assessment - FAMILY HISTORY Family History: reviewed, not pertinent Physical Exam-General - CONSTITUTIONAL General Appearance: alert, other (writhing in bed) - HEAD, EARS, NOSE, MOUTH & THROAT HENMT: normocephalic/atraumatic - NECK Neck: supple, normal inspection - RESPIRATORY Respiratory: chest non-tender, lungs clear, normal breath sounds, no respiratory distress, no accessory muscle use - CARDIOVASCULAR Cardiovascular: no murmur, tachycardia - GASTROINTESTINAL (ABDOMEN) Abdominal Exam: normal bowel sounds, non tender, soft, other (multiple well healed incisions on her abdomen) - MUSCULOSKELETAL Back Exam: normal inspection Extremity: normal inspection - SKIN Integumentary: normal color, warm/dry - NEUROLOGIC Neurologic: other (writhing in bed, will not cooperate for neuro exam) - PSYCHIATRIC Psych/Mental Status: disheveled Progress - PLAN OF CARE/RESULTS Progress/Plan/Lab Results: Orders Category Date Time Status EKG [EKG] Stat Ther 08/26/19 05:28 Ordered Result Diagrams: 08/26/19 05:56 08/26/19 05:56 - EKG 1 Time of EKG reading by physician:: 07:10 EKG Read and Signed by:: Juan J Fuentes EKG Interpretation (*Must complete 3 of following elements*): Abnormal (right atrial enlargement) Rate: 138 Rhythm: Sinus tachy [place]: normal QRS: normal ST Wave: non-specific ST changes 2 Time of EKG reading by physician:: 05:31 EKG Read and Signed by:: Juan J Fuentes EKG Interpretation (*Must complete 3 of following elements*): Abnormal (Right atrial enlargement) Rate: 138 Rhythm: Sinus Tachy QRS: normal [place] Interval: normal ST Wave: non-specific ST changes - CONSULTS/PCP/HOSPITALIST Notification #1 *Consult/PCP/Hospitalist*: Yulisa GAINES for Hospitalist Time Discussed: 12:09 Consult Disposition: Will see in ED, Admit Departure - Departure Date of Disposition Decision: 08/26/19 Time of Disposition Decision: 11:49 DIAGNOSIS: Tachycardia, Acute drug withdrawal syndrome, Chest pain Disposition: ADMITTED INPATIENT 09 Certified Medical Emergency: Emergent Condition: Fair Referrals and Follow-Ups: None,PCP [Primary Care Provider] - - Critical Care Note This patient required my direct & personal management of CC.: No Attestation - Physician/ NAHUM Attestation Patient care was provided by Advanced Practice Provider:: No The physician spent face to face time with patient:: Yes Advanced Practice Provider documentation review:: Supervising physician onsite and consulted in the evaluation and care of this patient. The physician did have a face to face encounter with the patient.
[2019-08-26] MEDS ORDERED: LOPRESSOR IV ONE (06:10)
--- NOTE | 2019-08-26 06:26 | Diag Imaging Result Doc PS360 ---
EXAM: CHEST-1 VIEW HISTORY: chest pain TECHNIQUE: Single view COMPARISON: 08/16/2019 FINDINGS: The lungs are well expanded. The heart is borderline mildly prominent. The vessels are not distended. There are no infiltrates. No effusion identified. Old injury to the left shoulder. IMPRESSION: Stable exam Electronically signed by Jabier Kumari 08/26/2019 6:24 AM
[2019-08-26] MEDS ORDERED: NS 1,000 ML IV ONE (07:05)
[2019-08-26 07:10] LABS: BASO# 0.05 X1000 (0.0-0.2); BASO% 0.5 % (0.0-0.8); EOS# 0.27 X1000 (0.0-0.7); EOS% 2.5 % (0.0-10.0); HEMATOCRIT 37.1 % (37.0-47.0); HEMOGLOBIN 11.7 g/dL (12.0-16.0); IMM GRAN# 0.09 X1000 (0.0-0.04); IMM GRAN% 0.8 % (0.0-0.5); LYMPH# 2.03 X1000 (1.2-3.4); LYMPH% 19.1 % (20.5-51.1); MCH 27.7 PG (27-31); MCHC 31.5 g/dL (33-37); MCV 87.7 FL (81-99); MONO# 0.86 X1000 (0.11-0.59); MONO% 8.1 % (1.7-9.3); MPV 11.3 FL (7.4-10.4); NEUT# 7.32 X1000 (1.4-6.5); PLT 454 X1000 (130-400); RBC 4.23 XMIL (4.2-5.4); RDW 14.6 % (11.5-14.5); WBC 10.62 X1000 (4.8-10.8)
[2019-08-26 07:42] LABS: ALB/GLOB RATIO 1.2; ALBUMIN 4.2 g/dL (3.5-5.0); CALCIUM 9.8 mg/dL (8.8-10.2); CREATININE 1.2 mg/dL (0.5-0.9); TOTAL BILIRUBIN 0.26 mg/dL (0.20-1.00); TOTAL PROTEIN 7.8 g/dL (6.3-8.3)
[2019-08-26 09:47] LABS: URINE SOURCE CATH
[2019-08-26 09:50] LABS: BILIRUBIN URINE NEGATIVE (NEGATIVE); BLOOD URINE NEGATIVE (NEGATIVE); COLOR YELLOW; GLUCOSE URINE NEGATIVE (NEGATIVE); KETONE URINE NEGATIVE (NEGATIVE); LEUKOCYTES URINE NEGATIVE (NEGATIVE); NITRITE URINE NEGATIVE (NEGATIVE); PH URINE 5.5; PROTEIN URINE TRACE mg/dL (NEGATIVE); SP GRAVITY URINE 1.014; TURBIDITY URINE CLEAR (CLEAR); UROBILINOGEN URINE NORMAL (NORMAL)
[2019-08-26 09:52] LABS: UR EPITHELIAL CELLS <10 /HPF (<10); URINE BACTERIA NEGATIVE /HPF; URINE RBC <10 /HPF (<10); URINE WBC <10 /HPF (<10)
[2019-08-26 10:18] LABS: UR AMPHETAMINES QUAL NONE DETECTED (NONE DETECT); UR BARBITUATES QUAL PRESUMPTIVE POSITIVE (NONE DETECT); UR BENZODIAZEPIN QUAL NONE DETECTED (NONE DETECT); UR CANNABINOIDS QUAL NONE DETECTED (NONE DETECT); UR COCAINE QUAL NONE DETECTED (NONE DETECT); UR METHADONE QUAL NONE DETECTED (NONE DETECT); UR OPIATES QUAL NONE DETECTED (NONE DETECT); UR OXYCODONE QUAL NONE DETECTED (NONE DETECT); UR PCP QUAL NONE DETECTED (NONE DETECT)
[2019-08-26 10:47] LABS: INR 0.85; PROTIME 11.7 Seconds (11.0-16.0)
[2019-08-26 10:48] LABS: PTT 25.4 Seconds (22.3-41.8)
[2019-08-26] MEDS ORDERED: CARDIZEM IV ONE (11:48)
[2019-08-26] MEDS ORDERED: VALIUM IV ONE (11:48)
[2019-08-26] MEDS ORDERED: ATIVAN IM ONE (14:37)
[2019-08-26] MEDS ORDERED: ZOFRAN IV PRN (14:48)
[2019-08-26] MEDS ORDERED: NS 250 ML ONE (15:21)
[2019-08-26 15:37] LABS: URINE SOURCE CLEAN CATCH
[2019-08-26] MEDS ORDERED: LOPRESSOR IV SCH (15:45)
[2019-08-26] MEDS ORDERED: CATAPRES-TTS-1 TD ONE (15:47)
[2019-08-26 15:49] LABS: BILIRUBIN URINE NEGATIVE (NEGATIVE); BLOOD URINE SMALL (NEGATIVE); COLOR YELLOW; GLUCOSE URINE NEGATIVE (NEGATIVE); KETONE URINE NEGATIVE (NEGATIVE); LEUKOCYTES URINE NEGATIVE (NEGATIVE); NITRITE URINE NEGATIVE (NEGATIVE); PROTEIN URINE 30 mg/dL (NEGATIVE); SP GRAVITY URINE 1.017; TURBIDITY URINE CLEAR (CLEAR); UROBILINOGEN URINE NORMAL (NORMAL)
[2019-08-26 15:50] LABS: UR EPITHELIAL CELLS <10 /HPF (<10); URINE BACTERIA 2+ /HPF; URINE RBC <10 /HPF (<10); URINE WBC <10 /HPF (<10)
--- NOTE | 2019-08-26 16:13 | HISTORY AND PHYSICAL ---
PRIMARY CARE PROVIDER: Dr. Hamilton Glez. CHIEF COMPLAINT: Per ED report, Zanaflex withdrawal. HISTORY OF PRESENT ILLNESS: Ms. Juarez is a 64-year-old female, well known to our service with a past medical history of hypertension, diabetes, GERD, paroxysmal atrial fibrillation, colon cancer in 2000 with resection, CVA in the posterior region, and frequent admissions for Zanaflex withdrawal, chronic pain syndrome. She was brought in by EMS from [facility] for reported chest pain that was right-sided. They reported that the patient and the was a very vague historian and did not want her to go to [facility], wanted her to be brought to [facility]. She was already writhing in the bed upon arrival. Per Dr. Fuentes, the patient had 18 Zanaflex filled from her primary care provider and she has already taken them since her last discharge on 08/22/2019 and appeared to be in atrial fibrillation with RVR. It did not appear that the patient was taking her home Cardizem and was in acute Zanaflex withdrawal. They were unable to establish a peripheral IV, so the patient is currently waiting on a PICC line. She is still writhing in bed. We will give her 2 mg of IM Ativan, place a Parekh, and place her in 4-point restraints until she can be more calm to receive her PICC line and then we can start the Cardizem bolus and Cardizem drip if needed and continue with Valium. PAST MEDICAL HISTORY: As per HPI. PAST SURGICAL HISTORY: Colon resection, x3, hysterectomy, lumbar surgery x3, cholecystectomy. SOCIAL HISTORY: Zanaflex abuse. FAMILY HISTORY: Unable to obtain. ALLERGIES: Morphine and Nubain. MEDICATIONS: Home medications are being compiled. PHYSICAL EXAMINATION: VITAL SIGNS: Temperature is 99.1 degrees, heart rate 150s, respirations 20s, blood pressure is 170s over 140s, O2 is 98% on room air. GENERAL: Ms. Juarez is a 64-year-old female who is writhing in bed. She knows her name. She knows her 's name. She could not tell me what she was brought to the hospital for or answer any other questions. HEENT: Atraumatic, normocephalic. PERRL. NECK: Supple. Trachea midline. CV: Tachycardic. S1, S2 appreciated. No murmurs, gallops, rubs noted. RESPIRATORY: Lung sounds relatively clear bilaterally. GI: Appeared to be soft, nontender, nondistended. Positive bowel sounds 4 quadrants. EXTREMITIES: Lower extremities negative for edema. Bilateral pedal pulses are palpable. NEUROLOGIC: The patient will tell you her name. She will tell you her 's name. Other than that, she does not answer any other questions; she just rolls around in the bed. REVIEW OF SYSTEMS: Hard to obtain secondary to patient's condition. DIAGNOSTIC DATA: Chest x-ray, stable. LABORATORY DATA: White count 10, hemoglobin and hematocrit 11 and 37, platelet count is 454,000. Sodium 141, potassium 5, BUN 47, creatinine 1.2, blood glucose was 97, alkaline phosphatase 124. Troponin was 37. ProBNP was 974. Lipase 209. Toxicology screen is positive for barbiturates. Urinalysis is negative. ASSESSMENT AND PLAN: 1. Acute Zanaflex withdrawal. Continue with aggressive IV hydration, frequent neuro checks, IV Cardizem. We will try p.o. Valium. The patient was tapered off her Zanaflex last admit. 2. Tachycardia secondary to withdrawal. Currently awaiting PICC line to give IV medication. 3. Fluid volume depletion. We will continue with aggressive IV hydration. 4. Acute kidney injury secondary to #3. 5. Accelerated hypertension secondary to withdrawal syndrome. Continue p.o. We will try to add IV beta blockers. 6. Severe back pain. Patient is followed by the Pain Clinic in [place]. 7. Diabetes mellitus. Place her on sliding scale with pattern blood sugars. 8. Encephalopathy secondary to withdrawal. Again, continue to monitor her neuro status. 9. Elevated lipase. Probably need check a CT of the abdomen once the patient has been given some sedating medication and receives her PICC line. 10. Further recommendations to follow physician evaluation, laboratory and diagnostic data, PICC line insertion for further management and treatment. Dictated by YOGI Anderson for Demian Funes MD cc: Demian Funes MD I agree with most components of history, physical, assessment and plan. A separate addendum has been dictated. ROSALIND
--- NOTE | 2019-08-26 16:25 | HISTORY AND PHYSICAL ---
ADDENDUM: I agree with most components of the history, physical, assessment, and plan. In brief, Ms. Juarez is a 64-year-old, lady who had a past medical history of multiple hospital admissions for withdrawal from tizanidine, who was brought into the emergency room. History was limited. However, according to the information I received from the ER team, the patient was recently prescribed tizanidine, about 18 tablets just a few days ago. However, she took too many tablets and she ran out of her tizanidine. Otherwise, the details of the history are not clear. I am evaluating Ms. Juarez in the ICU. Initially I went down to the ER but the patient was ready to get up. When I came to the ICU, she was getting cleaned up by the nursing team so I came back again and at that time, she was in the middle of the PICC line procedure. Ms. Juarez is alert. She denies any chest pain. She denies any shortness of breath. However, she appears confused and has not been able to participate in the clinical encounter meaningfully. VITAL SIGNS: Temperature of 99 degrees, pulse 150, respiratory rate 20, blood pressure 170/140. She is saturating 98% on room air. PHYSICAL EXAMINATION: HEENT: She has dilated pupils. She has what appears to be choreiform movement affecting the face. LUNGS: Air entry bilaterally equal. No wheeze, rhonchi, or crackles. CARDIOVASCULAR: S, S2 normal. No murmur, rub, or gallop. ABDOMEN: Soft, nontender. EXTREMITIES: No lower extremity edema. GENITOURINARY: She has urine catheter. EXTREMITIES: She is in restraints. Neurologic: She is alert. She doen't answer questions meaningfully. She is moving all her extremities spontaneously. LABS: Suggestive of WBC of 10,000, hemoglobin 11.7, platelets 454,000. She has a BUN of 47, creatinine 1.2. Her barbiturate screen was positive for some reason. No microbiological data. Chest x-ray was a stable exam. ASSESSMENT AND PLAN: 1. Withdrawal from tizanidine based on tachycardia, hypertension, dilated pupils. I will start her on a clonidine patch. 2. Hypertension and tachycardia. The electrocardiogram on arrival had sinus tachycardia. However, there were some reports of AFib. Though I don't have any documentations. Unfortunately, the patient did not have a good intravenous access and did not receive intravenous medication that she was supposed to be on. A stat peripherally inserted central catheter line consult has been ordered. I will start her on an intravenous diltiazem drip. The emergency room reported the patient was in atrial fibrillation with rapid ventricular response and there was documented history of paroxysmal atrial fibrillation. I am ordering a stat electrocardiogram to further evaluate it. 3. Others. Ms. Juarez has a history of insulin-dependent diabetes mellitus and chronic pain. 4. Disposition. Continue to monitor the patient in the intensive care unit. Thirty-five minutes of critical care time was spent in taking care of this patient. cc: Demian Funes MD MTDD
[2019-08-26] MEDS: NS 1,000 ML IV SCH ×2 (16:39→21:54)
--- NOTE | 2019-08-26 16:40 | EKG Report ---
Test Performed on : 08/26/2019 4:34:06 PM Test Reason : Evaluate for heart rhythm Blood Pressure : / mmHG Vent. Rate : 145 BPM Atrial Rate : 145 BPM P-R Int : 132 ms QRS Dur : 080 ms QT Int : 268 ms P-R-T Axes : 063 012 099 degrees QTc Int : 416 ms Sinus tachycardia. with premature atrial complexes. Left ventricular hypertrophy with repolarization abnormality Abnormal ECG When compared with ECG of 17-AUG-2019 06:47, premature atrial complexes. are now present T wave amplitude has increased in Anterior leads Confirmed by Jeevan Milligan MD ([id number]) on 08/27/2019 2:57:25 PM
[2019-08-26] MEDS: CARDIZEM 100 MG/NS 100 MG/100 ML IVPB IV SCH ×2 (17:10→22:19)
[2019-08-26] MEDS: HUMALOG SUBQ SCH (20:39)
[2019-08-26] MEDS ORDERED: LANTUS INSULIN SUBQ SCH (21:00)
[2019-08-27] MEDS: CARDIZEM 100 MG/NS 100 MG/100 ML IVPB IV SCH (03:59)
[2019-08-27] MEDS: HUMALOG SUBQ SCH ×4 (06:10→20:38)
[2019-08-27] MEDS: NS 1,000 ML IV SCH ×4 (06:13→23:14)
[2019-08-27 06:19] LABS: BASO# 0.03 X1000 (0.0-0.2); BASO% 0.2 % (0.0-0.8); EOS# 0.04 X1000 (0.0-0.7); EOS% 0.3 % (0.0-10.0); HEMATOCRIT 36.5 % (37.0-47.0); HEMOGLOBIN 11.5 g/dL (12.0-16.0); IMM GRAN# 0.05 X1000 (0.0-0.04); IMM GRAN% 0.3 % (0.0-0.5); LYMPH# 1.53 X1000 (1.2-3.4); LYMPH% 10.1 % (20.5-51.1); MCH 27.9 PG (27-31); MCHC 31.5 g/dL (33-37); MCV 88.6 FL (81-99); MONO# 0.87 X1000 (0.11-0.59); MONO% 5.8 % (1.7-9.3); MPV 11.5 FL (7.4-10.4); NEUT# 12.57 X1000 (1.4-6.5); NEUT% 83.3 % (42.2-75.2); PLT 452 X1000 (130-400); RBC 4.12 XMIL (4.2-5.4); RDW 14.9 % (11.5-14.5); WBC 15.09 X1000 (4.8-10.8)
--- NOTE | 2019-08-27 07:25 | EKG Report ---
Test Performed on : 08/27/2019 06:57:56 AM Test Reason : chest pain Blood Pressure : / mmHG Vent. Rate : 099 BPM Atrial Rate : 099 BPM P-R Int : 152 ms QRS Dur : 080 ms QT Int : 376 ms P-R-T Axes : 065 025 -17 degrees QTc Int : 482 ms Normal sinus rhythm. T wave abnormality, consider inferior ischemia Abnormal ECG When compared with ECG of 26-AUG-2019 16:34, (Unconfirmed) premature atrial complexes. are no longer present Non-specific change in ST segment in Inferior leads T wave inversion now evident in Inferior leads T wave inversion no longer evident in Lateral leads Confirmed by Jeevan Milligan MD ([id number]) on 08/27/2019 3:00:24 PM
[2019-08-27 07:35] LABS: ALB/GLOB RATIO 1.1; ALBUMIN 3.9 g/dL (3.5-5.0); ALKALINE PHOSPHATASE 127 U/L (32-104); BUN 25 mg/dL (8-22); CALCIUM 9.3 mg/dL (8.8-10.2); CREATININE 0.8 mg/dL (0.5-0.9); ESTIMATED GFR > 60; GLUCOSE 146 mg/dL (70-104); GOT 29 U/L (10-30); GPT 25 U/L (10-36); MAGNESIUM 1.7 mg/dL (1.5-2.7); TCO2 15 mmol/L (25-35); TOTAL BILIRUBIN 0.44 mg/dL (0.20-1.00); TOTAL PROTEIN 7.6 g/dL (6.3-8.3)
[2019-08-27 07:38] LABS: CHLORIDE 104 mmol/L (98-107); POTASSIUM 4.2 mmol/L (3.5-5.1); SODIUM 143 mmol/L (136-145)
--- NOTE | 2019-08-27 07:38 | Diag Imaging Result Doc PS360 ---
EXAM: CHEST-PORTABLE HISTORY: NEWS TECHNIQUE: Single view COMPARISON: 08/26/2019 FINDINGS: The lungs are well expanded. A left-sided PICC line has been placed since the prior exam. The tip overlies the distal superior vena cava near the right atrium. The heart is mildly prominent. The vessels are not distended. There are no infiltrates. No effusion identified. IMPRESSION: Placement of a left-sided PICC line, otherwise stable exam Electronically signed by Jabier Kumari 08/27/2019 7:36 AM
[2019-08-27 07:41] LABS: AGAP 24
[2019-08-27 07:42] LABS: COSMO 292
[2019-08-27] MEDS ORDERED: CARDIZEM PO ONE (09:45)
[2019-08-27] MEDS: ATIVAN IV PRN ×3 (10:00→20:27)
[2019-08-27] MEDS: ULTRAM PO PRN ×2 (10:07→17:30)
[2019-08-27] MEDS: CARDIZEM PO SCH ×2 (15:15→20:26)
[2019-08-27] MEDS: LOPRESSOR PO SCH (20:26)
[2019-08-27] MEDS: LOVENOX SUBQ SCH (20:27)
--- NOTE | 2019-08-27 20:33 | PROGRESS NOTE ---
DATE: 08/27/2019 SUBJECTIVE: The patient is somewhat confused. She is oriented to self. She is currently being weaned off of a Cardizem drip. OBJECTIVE: Vital Signs: Temperature 98.6 degrees, blood pressure 172/91, heart rate 103, respirations 24, O2 saturations 94% on room air. General: This is a chronically ill-appearing elderly female lying in bed in no acute distress. Heart: S1, S2 normal. Tachycardic. Lungs: Equal air entry bilaterally. No wheezing. No rales. No rhonchi. Abdomen: Positive bowel sounds. Soft, nontender, nondistended. Extremities: No edema, no cyanosis. Neurologic: The patient is oriented to self. She is able to move all 4 extremities. LABORATORY DATA: White blood cell count 15, hemoglobin 11, hematocrit 36, platelets 452,000. Sodium 143, potassium 4.2, chloride 104, CO2 15, BUN 25, creatinine 0.8, glucose 120. ASSESSMENT AND PLAN: 1. Zanaflex withdrawal. We will monitor the patient closely in the ICU. prn Ativan has been ordered for agitation. 2. Uncontrolled hypertension. We will adjust the patient's antihypertensive regimen. 3. Sinus tachycardia. The patient is being weaned off of the Cardizem drip. Cardizem will be initiated as well as Lopressor. 4. Diabetes mellitus. Continue on sliding scale insulin. 5. Anion gap metabolic acidosis. We will check an acetone level as well as an ABG. 6. Deep venous thrombosis prophylaxis. We will start the patient on Lovenox. cc: Kelly Abreu MD MTDD
[2019-08-27 21:41] LABS: ALLEN TEST YES; BE -0.4 mmoll (-3.0-3.0); BLOOD TYPE ARTERIAL; HCO3-(ACT) 24.6 mmoll (20.0-26.0); O2HB 95.2 % (95.0-99.0); PCO2(98.6) 38 mmHg (35-45); PO2(98.6) 86 mmHg (60-100); SAMPLE BLOOD; SAO2 95.2 % (95.0-100.0); THB 11.1 g/dL (11.5-17.4); pH(98.6) 7.41 (7.35-7.45)
[2019-08-27 21:42] LABS: MODALITY CANNULA
[2019-08-27 22:13] LABS: AGAP 12; ALBUMIN 3.6 g/dL (3.5-5.0); BUN 11 mg/dL (8-22); CALCIUM 8.7 mg/dL (8.8-10.2); CHLORIDE 104 mmol/L (98-107); COSMO 279; CREATININE 0.7 mg/dL (0.5-0.9); ESTIMATED GFR > 60; GLUCOSE 136 mg/dL (70-104); PHOSPHORUS 2.2 mg/dL (2.7-4.5); POTASSIUM 3.7 mmol/L (3.5-5.1); SODIUM 139 mmol/L (136-145); TCO2 23 mmol/L (25-35)
[2019-08-28] MEDS: CARDIZEM PO SCH ×2 (03:02→08:33)
[2019-08-28] MEDS: NS 1,000 ML IV SCH ×2 (03:41→06:07)
[2019-08-28 04:57] LABS: ALLEN TEST YES; BE -1.7 mmoll (-3.0-3.0); BLOOD TYPE ARTERIAL; HCO3-(ACT) 23.6 mmoll (20.0-26.0); O2(CT) 15.5 mL/dL (15.0-23.0); PCO2(98.6) 38 mmHg (35-45); PO2(98.6) 125 mmHg (60-100); SAMPLE BLOOD; THB 11.3 g/dL (11.5-17.4); pH(98.6) 7.39 (7.35-7.45)
[2019-08-28 04:58] LABS: MODALITY CANNULA
[2019-08-28 06:05] LABS: BASO# 0.04 X1000 (0.0-0.2); BASO% 0.4 % (0.0-0.8); EOS% 3.1 % (0.0-10.0); HEMATOCRIT 35.3 % (37.0-47.0); HEMOGLOBIN 10.9 g/dL (12.0-16.0); IMM GRAN# 0.05 X1000 (0.0-0.04); IMM GRAN% 0.5 % (0.0-0.5); LYMPH# 2.02 X1000 (1.2-3.4); LYMPH% 20.7 % (20.5-51.1); MCH 27.8 PG (27-31); MCHC 30.9 g/dL (33-37); MCV 90.1 FL (81-99); MONO# 0.57 X1000 (0.11-0.59); MONO% 5.9 % (1.7-9.3); MPV 11.3 FL (7.4-10.4); NEUT# 6.76 X1000 (1.4-6.5); NEUT% 69.4 % (42.2-75.2); PLT 411 X1000 (130-400); RBC 3.92 XMIL (4.2-5.4); RDW 14.5 % (11.5-14.5); WBC 9.74 X1000 (4.8-10.8)
[2019-08-28] MEDS: HUMALOG SUBQ SCH ×2 (06:07→11:09)
[2019-08-28 06:20] LABS: AGAP 12; BUN 8 mg/dL (8-22); CALCIUM 8.9 mg/dL (8.8-10.2); CHLORIDE 106 mmol/L (98-107); COSMO 282; CREATININE 0.6 mg/dL (0.5-0.9); ESTIMATED GFR > 60; GLUCOSE 177 mg/dL (70-104); SODIUM 140 mmol/L (136-145); TCO2 22 mmol/L (25-35)
[2019-08-28] MEDS: AUGMENTIN PO SCH ×2 (08:39→21:01)
[2019-08-28] MEDS: LOPRESSOR PO SCH ×2 (10:38→21:02)
[2019-08-28] MEDS: ATIVAN PO PRN ×2 (12:42→21:01)
--- NOTE | 2019-08-28 13:21 | PROGRESS NOTE ---
DATE: 08/28/2019 SUBJECTIVE: The patient is more awake and alert today. No acute events noted overnight. OBJECTIVE: Vital Signs: Temperature 98.2 degrees, blood pressure 152/76, heart rate 94, respirations 20, O2 saturations 100% on 2 L nasal cannula. General: This is a chronically ill- appearing elderly female lying in bed in no acute distress. Heart: S1, S2 normal. Regular rate and rhythm. Lungs: Equal air entry bilaterally. No wheezing. No rales. Abdomen: Positive bowel sounds. Soft, nontender, nondistended. Extremities: No edema. No cyanosis. Neurologic: The patient is alert and oriented x3. LABS: White blood cell count 9.7, hemoglobin 10, hematocrit 35, platelets 411,000. Sodium 140, potassium 4, chloride 106, CO2 22, BUN 8, creatinine 0.9 glucose 177. ASSESSMENT AND PLAN: 1. Withdrawal from an unknown substance. The patient's drug toxicology screen was positive for barbiturates. After reviewing the [place] prescription drug monitoring database, it showed that the patient's last controlled substance prescription was issued in December 2018. This suggests that the patient is obtaining controlled substances from another source. The patient could not identify the doctor that she has been getting her recent medications from. Also, the patient has used at least 7 different pharmacies in the last 2 years. The patient likely needs drug rehab. Will consult with social psychologist for outpatient resources for the patient. 2. Uncontrolled hypertension. Will adjust the cardizem dosage. Continue on Lopressor. 3. Acute bronchitis. Continue on Augmentin. 4. IDDM. Continue on sliding scale insulin. 5. Deep vein thrombosis prophylaxis. Continue on Lovenox. 6. Disposition. The patient should be able to be discharged home tomorrow. cc: Kelly Abreu MD [facility]
[2019-08-28] MEDS: LOVENOX SUBQ SCH (21:02)
[2019-08-29] MEDS: HUMALOG SUBQ SCH ×4 (02:18→11:54)
[2019-08-29] MEDS: ULTRAM PO PRN ×2 (02:19→08:42)
[2019-08-29] MEDS: ATIVAN PO PRN ×2 (03:57→10:17)
[2019-08-29 07:16] LABS: BASO# 0.03 X1000 (0.0-0.2); BASO% 0.4 % (0.0-0.8); EOS# 0.33 X1000 (0.0-0.7); EOS% 3.9 % (0.0-10.0); HEMATOCRIT 38.1 % (37.0-47.0); HEMOGLOBIN 11.8 g/dL (12.0-16.0); IMM GRAN# 0.04 X1000 (0.0-0.04); IMM GRAN% 0.5 % (0.0-0.5); LYMPH# 2.19 X1000 (1.2-3.4); LYMPH% 25.7 % (20.5-51.1); MCH 27.6 PG (27-31); MONO# 0.65 X1000 (0.11-0.59); MONO% 7.6 % (1.7-9.3); NEUT# 5.27 X1000 (1.4-6.5); NEUT% 61.9 % (42.2-75.2); PLT 405 X1000 (130-400); RBC 4.28 XMIL (4.2-5.4); WBC 8.51 X1000 (4.8-10.8)
[2019-08-29 07:38] LABS: AGAP 15; BUN 14 mg/dL (8-22); CALCIUM 9.2 mg/dL (8.8-10.2); CHLORIDE 100 mmol/L (98-107); COSMO 282; CREATININE 0.8 mg/dL (0.5-0.9); ESTIMATED GFR > 60; GLUCOSE 130 mg/dL (70-104); POTASSIUM 4.1 mmol/L (3.5-5.1); SODIUM 140 mmol/L (136-145); TCO2 25 mmol/L (25-35)
[2019-08-29] MEDS ORDERED: MACRODANTIN PO SCH (08:00)
[2019-08-29] MEDS: LOPRESSOR PO SCH (08:42)
[2019-08-29] MEDS ORDERED: CARDIZEM CD PO SCH (09:00)
[2019-08-29 11:42] VITALS: BP 84/68
== END 2019-08-29 14:30 | disposition home health service (06) | DRG 897 ==
LOC: EDSEX → ED 05:26 → SUATTDRO 12:25 → ICU 12:25 → 4N 08-28 11:58 → 3N 08-28 12:00
PROVIDERS: ATTEND Internal Medicine